=== PATIENT | female | born 1975 | race African-American/Black ===

== ENCOUNTER 2020-05-20 11:52 | Outpatient (REF) | payer OTHER, SELFPAY ==
--- NOTE | 2020-05-20 11:57 | XR_ITS ---
EXAMINATION: XR ABDOMEN KUB CLINICAL INDICATION: Constipation. COMPARISON: None TECHNIQUE: AP view of the abdomen. FINDINGS: There is moderate scattered stool seen in the colon without any significant distention. The small bowel loops are nondilated. There is no organomegaly. The gallbladder has been surgically resected. No gross bony abnormality seen. XR/XR KUB IMPRESSION: Mild constipation. No acute process seen.
[2020-05-20 13:57] LABS: MANUAL DIFF FLAG NO
[2020-05-20 14:00] LABS: Basophils Percent Auto 0.2 % (0-2); Eosinophils Percent Auto 0.9 % (0-4); Hematocrit 35.7 % (37-47); Hemoglobin 10.7 g/dl (12.0-16.0); Lymphocytes Absolute Auto 2.8 X10*3/uL (1.2-4.9); Lymphocytes Percent Auto 59.7 % (20-40); Mean Corpuscular Hemoglobin 21.8 pg (27.0-33.0); Mean Corpuscular Volume 72.7 fL (80-98); Mean Platelet Volume 11.5 fL (9.4-12.3); Monocytes Absolute Auto 0.3 X10*3/uL (0.1-1.2); Neutrophils Absolute Auto 1.5 X10*3/uL (2.0-8.3); Neutrophils Percent Auto 32.2 % (45-73); Platelet Count 196 X10*3/uL (160-400); Red Blood Count 4.91 X10*6/uL (4.20-5.50); Red Cell Distribution Width 16.1 % (11.0-16.0); White Blood Count 4.7 X10*3/uL (4.8-10.8)
[2020-05-20 14:47] LABS: Alanine Aminotransferase 18 U/L (0-31); Albumin Level 4.4 g/dL (3.5-5.0); Alkaline Phosphatase 49 U/L (39-117); Anion Gap 15 (12-20); Aspartate Amino Transferase 22 U/L (5-31); Bilirubin Direct < 0.2 mg/dL (0.0-0.5); Bilirubin Total 0.3 mg/dL (0.0-1.0); Blood Urea Nitrogen 7 mg/dL (9-16); Calcium 9.3 mg/dL (8.4-10.2); Carbon Dioxide 23 mmol/L (22-29); Chloride 105 mmol/L (96-108); Cholesterol 202 mg/dL; Estimated Glomerular Filt Rate > 60; Glucose Random 89 mg/dL (60-115); HDL Cholesterol 62 mg/dL; LDL Cholesterol Calculated 127 mg/dl; Potassium 4.3 mmol/l (3.3-5.1); Sodium 139 mmol/L (135-145); Total Protein 7.6 g/dL (6.5-8.0); Triglycerides 68 mg/dL
== END 2020-05-20 11:53 | disposition home or self-care (01) ==
LOC: HO.HMGCX 11:52
PROVIDERS: Visit Provider Nurse Practitioner Family
DX: K59.00 Constipation, unspecified (principal)
CPT/HCPCS: 36415; 74018; 80048; 80061; 80076; 85025

== ENCOUNTER 2021-03-07 09:45 | Outpatient (REF) | payer OTHER, SELFPAY ==
--- NOTE | ~2021-03-07 | CT_ITS ---
EXAMINATION: CT HEAD WITHOUT CONTRAST CLINICAL INFORMATION: Headache COMPARISON: None TECHNIQUE: Contiguous axial imaging was performed from the skull base to vertex without intravenous administration of contrast. This CT examination was performed using dose optimization techniques as appropriate, variously including the following: *Automated exposure control *Adjustment of mA and/or kV according to patient size (this includes techniques or standardized protocols for targeted exams where dose is matched to indication/reason for exam; i.e. extremities or head) *Use of iterative reconstruction technique DLP: 705 mGy-cm FINDINGS: There is no evidence of acute intracranial hemorrhage or territorial infarction. No abnormal mass effect or midline shift is seen. [place] to white matter differentiation is well preserved. No extra-axial fluid collections are identified. The ventricles are normal in size. There is no abnormal attenuation within the brain parenchyma. The osseous structures and soft tissues are normal. The mastoid air cells and visualized portions of the paranasal sinuses are well aerated. CT/CT head/brain wo con IMPRESSION: No acute intracranial process seen.
== END 2021-03-07 09:46 | disposition home or self-care (01) ==
LOC: HO.CT 09:45
PROVIDERS: PCP Internal Medicine; Visit Provider Internal Medicine
DX: R51.9 Headache, unspecified (principal)
CPT/HCPCS: 70450

== ENCOUNTER 2021-07-16 12:21 | Outpatient (REF) | payer OTHER, SELFPAY ==
[2021-07-16 12:32] LABS: MANUAL DIFF FLAG NO
[2021-07-16 13:25] LABS: Basophils Percent Auto 0.2 % (0-2); Eosinophils Percent Auto 0.5 % (0-4); Hematocrit 36.8 % (37.0-47.0); Hemoglobin 11.1 g/dl (12.0-16.0); Imm Gran Abs Auto 0.01 X10*3/uL (0.00-0.03); Imm Gran Pct Auto 0.2 % (0.0-0.4); Lymphocytes Absolute Auto 2.4 X10*3/uL (1.2-4.9); Lymphocytes Percent Auto 41.2 % (20-40); Mean Corpuscular HGB Conc 30.2 g/dl (31.0-35.0); Mean Corpuscular Hemoglobin 21.6 pg (27.0-33.0); Mean Corpuscular Volume 71.6 fL (80.0-98.0); Mean Platelet Volume 11.2 fL (9.4-12.3); Monocytes Absolute Auto 0.5 X10*3/uL (0.1-1.2); Monocytes Percent Auto 7.8 % (2-11); Neutrophils Percent Auto 50.1 % (45-73); Platelet Count 252 X10*3/uL (160-400); Red Blood Count 5.14 X10*6/uL (4.20-5.50); Red Cell Distribution Width 17.2 % (11.0-16.0); White Blood Count 5.9 X10*3/uL (4.8-10.8)
[2021-07-16 13:55] LABS: Alanine Aminotransferase 10 U/L (0-31); Albumin Level 4.5 g/dL (3.5-5.0); Alkaline Phosphatase 56 U/L (39-117); Anion Gap 10 (12-20); Aspartate Amino Transferase 14 U/L (5-31); Bilirubin Total 0.3 mg/dL (0.0-1.0); Blood Urea Nitrogen 9 mg/dL (9-16); Calcium 10.1 mg/dL (8.4-10.2); Carbon Dioxide 27 mmol/L (22-29); Chloride 106 mmol/L (96-108); Cholesterol 201 mg/dL; Estimated Glomerular Filt Rate > 60; Glucose Fasting 79 mg/dL (60-99); HDL Cholesterol 55 mg/dL; LDL Cholesterol Calculated 131 mg/dl; Potassium 4.1 mmol/L (3.3-5.1); Sodium 139 mmol/L (135-145); Total Protein 7.9 g/dL (6.5-8.0); Triglycerides 79 mg/dL
== END 2021-07-16 12:22 | disposition home or self-care (01) ==
LOC: HO.LAB 12:21
PROVIDERS: PCP Nurse Practitioner Family; Visit Provider Nurse Practitioner Family
DX: E78.00 Pure hypercholesterolemia, unspecified (principal); I10 Essential (primary) hypertension
CPT/HCPCS: 36415; 80053; 80061; 85025

== ENCOUNTER → 2021-08-27 09:53 | Outpatient (BNVA) | payer OTHER, SELFPAY | PROVIDERS: PCP Nurse Practitioner Family; Referring Provider Nurse Practitioner Family; Visit Provider Physician Assistant | DX: Z12.11 Encounter for screening for malignant neoplasm of colon (principal) | CPT/HCPCS: 99202 ==

== ENCOUNTER 2021-12-12 10:55 | Day surgery (SDC) | payer OTHER, SELFPAY ==
--- NOTE | 2021-12-11 10:06 | HO.ANESPROP2 ---
Documented by User: Kamille Gilman NP 12/11/21 10:07 HPI - Anesthesia Eval Consult details Narrative: 46yo F for Colonoscopy PMFSH Active Problems Active Problems: All Active Problems (Updated 12/08/21 @ 10:17 by Praveena Pepe RN) Constipation (Acute) Abdominal pain (Acute) Nausea (Acute) Bilateral occipital neuralgia (Acute) Bilateral headaches (Acute) Encounter to establish care (Acute) Chronic headache (Acute) Uterine fibroid (Acute) Encounter for screening colonoscopy (Acute) Cramps of right lower extremity (Acute) Vitamin D deficiency (Acute) Past Medical History Medical History Gestational diabetes ARCHIBALD (headache) History of palpitations Occipital neuralgia Surgical History Surgical History History of delivery History of cholecystectomy Social History Social History Housing: House Alcohol intake: never Patient Tobacco Use Status: Never used Tobacco e-Cigarette/Vaping Use: Never Used Second Hand Smoke Exposure: No Use of substances other than those prescribed or required for medical reasons: No Are you DNR?: No Advance Directives: No Advance Directives Information Provided: Yes Recently lost weight without trying: No Nutrition Risks: No Nutritional Risk Patient : No FDLMP: 12/07/21 service: No Current occupational status: employed 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 Cognitive needs: No Hearing needs: No Vision needs: Yes (glasses) Meds Allergies Allergy/AdvReac Type Severity Reaction Status Date / Time Quinidine-Quinine Analogues Allergy itch Verified 09/11/21 10:09 ([facility] Influenza vaccine AdvReac Severe sever flu Uncoded 12/12/21 11:54 like symptoms Home Medications Medication Instructions Recorded Confirmed Last Taken Type No Known Home Meds 12/08/21 12/08/21 Unknown History Exam Exam Date and Time: December 11, 2021 1006 Pertinent Lab Results Pertinent Lab Results: Laboratory Tests 07/16/21 07/16/21 12:31 12:31 WBC 5.9 Hgb 11.1 L Hct 36.8 L Plt Count 252 Sodium 139 Potassium 4.1 Chloride 106 Carbon Dioxide 27 BUN 9 Creatinine 0.73 Assessment and Plan Assessment Anesthesia Assessment: Chart Reviewed Documented by User: lEi Bearden MD 12/12/21 12:11 PMFSH Past Medical History Medical History Gestational diabetes ARCHIBALD (headache) History of palpitations Occipital neuralgia Surgical History Surgical History History of delivery History of cholecystectomy History of Problems with Anesthesia: No Social History Social History Housing: House Alcohol intake: never Patient Tobacco Use Status: Never used Tobacco e-Cigarette/Vaping Use: Never Used Second Hand Smoke Exposure: No Use of substances other than those prescribed or required for medical reasons: No Are you DNR?: No Advance Directives: No Advance Directives Information Provided: Yes Recently lost weight without trying: No Nutrition Risks: No Nutritional Risk Patient : No FDLMP: 12/07/21 service: No Current occupational status: employed 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 Cognitive needs: No Hearing needs: No Vision needs: Yes (glasses) Meds Allergies Allergy/AdvReac Type Severity Reaction Status Date / Time Quinidine-Quinine Analogues Allergy itch Verified 09/11/21 10:09 ([facility] Influenza vaccine AdvReac Severe sever flu Uncoded 12/12/21 11:54 like symptoms Home Medications Medication Instructions Recorded Confirmed Last Taken Type No Known Home Meds 12/08/21 12/08/21 Unknown History Exam Airway Mallampati Class: I TM Dist: >3cm Neck ROM: Full Loose/Missing/Broken Teeth: No Heart: RRR Lungs: CTA Assessment and Plan Assessment Anesthesia Assessment: Anesthesia Plan Discussed Final Anesthetic Review History of Problems with Anesthesia: No NPO: Yes ASA Class: II Final Preanesthetic Review: Meds/Allgs Chart Reviewed, Consent Obtained/Reviewed and Anes Risks/Benef Reviewed Patient Risk: Low Procedure Risk: Low Anesthetic Plan Anesthetic Plan: MAC: Disposition: Standard PACU
[2021-12-12 11:38] VITALS: BMI 24.3
[2021-12-12 11:44] VITALS: BP 129/66; PULSE 76; RESP 18; TEMP 37.1; O2SAT 100
[2021-12-12 11:46] LABS: UPreg QC Valid YES; Urine Pregnancy NEGATIVE (NEGATIVE)
--- NOTE | 2021-12-12 11:51 | MHC.SHP ---
Pre-Procedural Eval Section A Date of Service: 12/12/21 The patient is an INPATIENT: No The History & Physical has been completed within 30 days and I have reviewed it.: No Section B Chief Complaint: screening Relevant Family History (Specify if Yes): No Relevant Social History: None Present Medications: see Short Stay Collaborative assessment Medical History: Significant History (Chronic headaches, ) History of Previous Operations: Relevant previous surgery/procedure and date(s) (History of delivery History of cholecystectomy) Allergies: Allergies Allergy/AdvReac Type Severity Reaction Status Date / Time Quinidine-Quinine Analogues Allergy itch Verified 09/11/21 10:09 ([facility] Review of Systems Sugical H&P ROS: Negative: Constitution, Cardiovascular, Respiratory and Gastrointestinal Exam Surgical H&P Exam: Normal: Heart, Normal: Lungs, Normal: Extremities and Normal: Abdomen Plan Diagnosis/Plan: Unchanged I have reviewed the history and physical and performed a pertinent physical examination on my patient. No changes have occurred unless specified.
[2021-12-12] MEDS: Lactated Ringers 1,000 ML 100 ML IVCONT (12:10)
--- NOTE | 2021-12-12 13:04 | P.OP_ITS ---
Operative Note Operative Note Date of Service: 12/12/21 Narrative: Pre-op diagnosis: Colon cancer screening Post-op diagnosis:?other (Diverticulosis, hemorrhoids) Procedure: COLONOSCOPY TILL CECUM Consent: Indications for the procedure and potential complications of bleeding, perforation, reaction to medications and missed diagnosis were discussed with the patient and informed consent was obtained. Instrument: Olympus PCF H 190 L variable stiffness pediatric colonoscope Monitoring: Vital signs and clinical assessment, intermittent blood pressure monitoring, continuous EKG monitoring, Pulse oximetry and Carbon Dioxide monitoring were done throughout the procedure. Colon withdrawl time was 15 minutes. Procedure: The patient was placed in the left lateral decubitis position and pre-procedure medications were administered. After a digital rectal examination of the ano-rectum, the video colonoscope was inserted into the rectum and advanced through the colon to the cecum. The colonoscope was slowly withdrawn in a retrograde panoramic fashion and the colon mucosa was carefully examined including a retroflexed view of the rectum. Findings and interventions are described below. Procedure Difficulty: Without difficulty Findings: Terminal Ileum: Not evaluated Cecum:? Normal Ascending Colon:? Normal Transverse Colon:? Normal Descending Colon:? Normal Sigmoid Colon:? Moderate diverticulosis Rectum:? Normal Ano-rectum:? Small internal hemorrhoids Colon preparation: Excellent ? Impression and Post Procedure Diagnosis: Colonoscopy Findings: No polyps were detected. Moderate diverticulosis seen in the sigmoid colon Small hemorrhoids on retroflexed exam. Plan: Patient has an appointment on 12/24/21 in the [facility] with ISABEL Bush. Repeat Colonoscopy 9-10 years (earlier if pt develops any new symptoms or has a change in her family hx). Diverticulosis handouts were given in the discharge area Surgeon: Mika Desai MD Anesthesia:?MAC Was an Sandwich And Drink Cart Operator used for this Procedure?:?Yes Sandwich And Drink Cart Operator:?Rina Colon Estimated blood loss (mL):?0 Pathology:?none sent Condition:?stable Disposition:?PACU
[2021-12-12 13:48] VITALS: BP 90/46; PULSE 69; RESP 16; TEMP 36.1; O2SAT 100
[2021-12-12 14:03] VITALS: BP 110/68; PULSE 56; RESP 16; TEMP 36.1; O2SAT 100
[2021-12-12 14:18] VITALS: BP 117/65; PULSE 56; RESP 16; TEMP 36.2; O2SAT 100
== END 2021-12-12 14:50 | disposition home or self-care (01) ==
PROVIDERS: Nurse Practitioner; PCP Nurse Practitioner Family; Visit Provider Internal Medicine Gastroenterology
PROC: 0DJD8ZZ Inspection of Lower Intestinal Tract, Via Natural or Artificial Opening Endoscopic (ICD-10-PCS; CPT 45378; principal; 2021-12-12 12:40)
DX: Z12.11 Encounter for screening for malignant neoplasm of colon (principal); K57.30 Diverticulosis of large intestine without perforation or abscess without bleeding; K64.8 Other hemorrhoids; K21.9 Gastro-esophageal reflux disease without esophagitis; Z88.8 Allergy status to other drugs, medicaments and biological substances; Z90.49 Acquired absence of other specified parts of digestive tract
CPT/HCPCS: 45378; 81025

== ENCOUNTER 2021-12-19 10:00 | Outpatient (REF) | payer OTHER, SELFPAY | END 2021-12-19 10:01 | disposition home or self-care (01) | LOC: HO.MAMMO 10:00 | PROVIDERS: PCP Internal Medicine; Visit Provider Internal Medicine | DX: Z13.89 Encounter for screening for other disorder (principal) ==

== ENCOUNTER 2022-02-13 10:47 | Outpatient (REF) | payer OTHER, SELFPAY ==
--- NOTE | ~2022-02-13 | MM_ITS ---
EXAMINATION: MM DIAGNOSTIC DIGITAL BREAST TOMOSYNTHESIS, RIGHT US DIAGNOSTIC ULTRASOUND BREAST, RIGHT CLINICAL INFORMATION: 46-year-old for six-month follow-up outside diagnostic baseline mammography for parenchymal asymmetry mid outer right breast. TC score 8%. COMPARISON: Outside breast imaging [facility]: Mammography 07/23/2021, bilateral breast ultrasound 07/23/2021. TECHNIQUE: Digital breast tomosynthesis is performed in both the craniocaudal and mediolateral oblique views along with computer-aided detection (CAD). Synthesized 2D images are generated from the tomosynthesis. Additional spot right CC and spot right MLO views are provided. Ultrasound right breast is targeted to the lower and outer quadrants. Grayscale imaging and color Doppler are performed without and with harmonics. FINDINGS: There are scattered areas of fibroglandular density (ACR BI-RADS breast composition Category b). There is normal appearing distribution fibroglandular tissue without mass, architectural abnormality, or focal asymmetric density. No developing density or abnormal calcifications. The right axilla and skin contours are unremarkable. Ultrasound demonstrates no cystic or solid mass, architectural abnormality, or focal duct ectasia. No skin thickening or edema tracking in soft tissue planes. Results are discussed with the patient at time of visit. MM/MM tomosynthesis diagnostic RT IMPRESSION: -No mammographic evidence of malignancy. -Unremarkable targeted right breast ultrasound. ASSESSMENT: BI-RADS 1: Negative RECOMMENDATION: Routine annual mammography screening. This patient's information was entered into a reminder system with a target due date for their next mammogram.
== END 2022-02-13 10:48 | disposition home or self-care (01) ==
LOC: HO.MAMMO 10:47
PROVIDERS: PCP Internal Medicine; Visit Provider Obstetrics & Gynecology
DX: N64.89 Other specified disorders of breast (principal)
CPT/HCPCS: 76642; 77061; 77065

== ENCOUNTER 2022-08-16 17:00 | Emergency (ER) | payer OTHER, SELFPAY ==
--- NOTE | ~2022-08-16 | US_ITS ---
EXAMINATION: US PELVIS COMPLETE CLINICAL INFORMATION: Left pelvic pain, heavy bleeding with clots COMPARISON: None TECHNIQUE: Transabdominal and transvaginal imaging was performed. FINDINGS: The uterus is of normal size and echogenicity measuring 12.5 x 5.7 x 6.3 cm. Uterus is retroverted in position. A regular homogeneous endometrium is identified measuring 0.2 cm. The endocervical canal is distended with soft tissue which demonstrates internal vascularity and a feeding vessel measuring approximately 2.5 x 2.6 x 1.8 cm which may reflect an endocervical polyp or endocervical mass, recommend correlation with direct inspection. Both ovaries are of normal size and echogenicity. The right measures 2.7 x 1.8 x 1.8 cm for a volume of 4.6 mL. The left measures 2.8 x 2.4 x 2.0 cm for a volume of 7.0 mL. Normal vascular flow is present within the ovaries. There is a 3.5 cm unilocular simple left ovarian cyst, certainly benign, no follow-up imaging recommended. There is no pelvic free fluid. US/US pelvic ovarian doppler IMPRESSION: The endocervical canal is distended with soft tissue which demonstrates internal vascularity and a feeding vessel measuring approximately 2.5 cm which may reflect an endocervical polyp or endocervical mass, recommend correlation with direct inspection.
--- NOTE | ~2022-08-16 | US_ITS ---
EXAMINATION: US PELVIS COMPLETE CLINICAL INFORMATION: Left pelvic pain, heavy bleeding with clots COMPARISON: None TECHNIQUE: Transabdominal and transvaginal imaging was performed. FINDINGS: The uterus is of normal size and echogenicity measuring 12.5 x 5.7 x 6.3 cm. Uterus is retroverted in position. A regular homogeneous endometrium is identified measuring 0.2 cm. The endocervical canal is distended with soft tissue which demonstrates internal vascularity and a feeding vessel measuring approximately 2.5 x 2.6 x 1.8 cm which may reflect an endocervical polyp or endocervical mass, recommend correlation with direct inspection. Both ovaries are of normal size and echogenicity. The right measures 2.7 x 1.8 x 1.8 cm for a volume of 4.6 mL. The left measures 2.8 x 2.4 x 2.0 cm for a volume of 7.0 mL. Normal vascular flow is present within the ovaries. There is a 3.5 cm unilocular simple left ovarian cyst, certainly benign, no follow-up imaging recommended. There is no pelvic free fluid. US/US pelvic and transvaginal IMPRESSION: The endocervical canal is distended with soft tissue which demonstrates internal vascularity and a feeding vessel measuring approximately 2.5 cm which may reflect an endocervical polyp or endocervical mass, recommend correlation with direct inspection.
[2022-08-16 17:02] VITALS: BP 137/65; PULSE 74; RESP 18; TEMP 36.8; O2SAT 98; BMI 24.2
--- NOTE | 2022-08-16 17:21 | ED.FEMALEGU ---
HPI - Female Genitourinary General Chief complaint: Vaginal Bleeding <ISABEL Rivers - Last Filed: 08/16/22 17:22> Stated complaint: dizzy, headache <ISABEL Rivers - Last Filed: 08/16/22 17:22> Time Seen by Provider: 08/16/22 18:42 <ISABEL Rivers - Last Filed: 08/16/22 17:22> Source: patient <Julisa Ribera NP - Last Filed: 08/17/22 01:11> Mode of arrival: ambulatory <Julisa Ribera NP - Last Filed: 08/17/22 01:11> Limitations: no limitations <Julisa Ribera NP - Last Filed: 08/17/22 01:11> History of Present Illness HPI Narrative: 47-year-old female presents with 2 days of heavy vaginal bleeding with clots. Heavy bleeding is also associated with fatigue, dizziness, and intermittent palpitations. Also reports headache, her is influenza positive. She also has urinary urgency and hesitancy. <Julisa Ribera NP - Last Filed: 08/17/22 01:11> MD elicited complaint: dysuria, vaginal bleeding and pelvic pain <Julisa Ribera NP - Last Filed: 08/17/22 01:11> Pertinent past history: other (Fibroids, polypectomy uterine) <Julisa Ribera NP - Last Filed: 08/17/22 01:11> Onset (ago): day(s) <Julisa Ribera NP - Last Filed: 08/17/22 01:11> Location of symptoms: vaginal <Julisa Ribera NP - Last Filed: 08/17/22 01:11> Severity: moderate <Julisa Ribera NP - Last Filed: 08/17/22 01:11> Severity scale (1-10): 6 <Julisa Ribera NP - Last Filed: 08/17/22 01:11> Quality of pain: aching <Julisa Ribera NP - Last Filed: 08/17/22 01:11> Consistency: constant <Julisa Ribera NP - Last Filed: 08/17/22 01:11> Vaginal discharge: none <Julisa Ribera NP - Last Filed: 08/17/22 01:11> Vaginal bleeding: heavy, dark red and clots <Julisa Ribera NP - Last Filed: 08/17/22 01:11> Urinary symptoms: Dysuria and Urgency <Julisa Ribera NP - Last Filed: 08/17/22 01:11> Exacerbating factors: urination, intercourse, movement and palpation <Julisa Ribera NP - Last Filed: 08/17/22 01:11> Relieving factors: none <Julisa Ribera NP - Last Filed: 08/17/22 01:11> Associated symptoms: abdominal pain, headaches and weakness <Julisa Ribera NP - Last Filed: 08/17/22 01:11> Treatment prior to arrival: none <Julisa Ribera NP - Last Filed: 08/17/22 01:11> Sexual activity: Yes <Julisa Ribera NP - Last Filed: 08/17/22 01:11> Patient : No <Julisa Ribera NP - Last Filed: 08/17/22 01:11> Related Data Home medications: Home Medications Medication Instructions Recorded Confirmed multivitamin 1 tab PO DAILY 02/16/22 ferrous sulfate 325 mg (65 mg 325 mg PO DAILY 05/12/22 iron) tablet (Feosol) Previous Rx's Medication Instructions Recorded cyclobenzaprine 10 mg tablet 10 mg PO BEDTIME #14 tabs 02/16/22 meloxicam 15 mg tablet 15 mg PO DAILY #14 tabs 02/16/22 meclizine 12.5 mg tablet 12.5 mg PO DAILY dizziness #10 tabs 05/12/22 cefuroxime axetil 500 mg tablet 500 mg PO Q12H 7 days #14 tabs 08/17/22 ferrous sulfate 325 mg (65 mg 325 mg PO BID 30 days #60 tabs 08/17/22 iron) tablet,delayed release medroxyprogesterone 10 mg tablet 10 mg PO DAILY 30 days #30 tabs 08/17/22 (Provera) <ISABEL Rivers - Last Filed: 08/16/22 17:22> Allergies/Adverse reactions: Allergies Allergy/AdvReac Type Severity Reaction Status Date / Time Quinidine-Quinine Analogues Allergy itch Verified 05/12/22 11:08 (Cincho Influenza vaccine AdvReac Severe sever flu Uncoded 05/12/22 11:08 like symptoms <ISABEL Rivers - Last Filed: 08/16/22 17:22> Review of Systems Review of Systems: Constitutional: No Fever, No Chills Cardiovascular: No Chest Pain, No SOB Respiratory: No Cough, No Dyspnea Gastrointestinal: Pulse Nausea, No Vomiting, No Diarrhea, No abdominal Pain Genitourinary: Positive Dysuria, No Hematuria , positive vaginal bleeding with clots Musculoskeletal: positive joint pain, No Myalgias, No Joint Swelling Skin: No Skin lacerations, No rash Neuro: No Weakness, No Numbness, No Paresthesias, positive Dizziness, positive Headache <Julisa Ribera NP - Last Filed: 08/17/22 01:11> Yes all other systems are reviewed and are negative <Julisa Ribera NP - Last Filed: 08/17/22 01:11> PMFSH Past Medical History Attestation statement: The following information was validated with the patient. <Julisa Ribera NP - Last Filed: 08/17/22 01:11> Source: old records reviewed <Julisa Ribera NP - Last Filed: 08/17/22 01:11> Medical History: Medical History Gestational diabetes ARCHIBALD (headache) History of palpitations Occipital neuralgia <ISABEL Rivers - Last Filed: 08/16/22 17:22> Surgical History: Surgical History History of delivery History of cholecystectomy <ISABEL Rivers - Last Filed: 08/16/22 17:22> Social History Social History: Social History Housing: House Alcohol intake: never Patient Tobacco Use Status: Never used Tobacco e-Cigarette/Vaping Use: Never Used Second Hand Smoke Exposure: No service: No Current occupational status: employed 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 Cognitive needs: No Hearing needs: No Vision needs: Yes (glasses) <ISABEL Rivers Last Filed: 08/16/22 17:22> Physical Exam Vital Signs: Vital Signs: Last Vital Signs Temp 98.9 F 08/17/22 00:09 Pulse 58 08/17/22 00:09 Resp 16 08/17/22 00:09 BP 108/58 L 08/17/22 00:09 Pulse Ox 97 08/17/22 00:09 O2 Del Method Room Air 08/17/22 00:09 BMI result Body Mass Index 24.2 <ISABEL Rivers - Last Filed: 08/16/22 17:22> Vital Signs: Last Vital Signs Temp 98.9 F 08/17/22 00:09 Pulse 58 08/17/22 00:09 Resp 16 08/17/22 00:09 BP 108/58 L 08/17/22 00:09 Pulse Ox 97 08/17/22 00:09 O2 Del Method Room Air 08/17/22 00:09 BMI result Body Mass Index 24.2 <Julisa Ribera NP - Last Filed: 08/17/22 01:11> Appearance: Alert. Oriented X3. No acute distress. Eyes: Pupils equal, round and reactive to light. Neck: Normal inspection. Neck supple. CVS: Normal heart rate and rhythm. Pulses normal. Respiratory: No respiratory distress. Breath sounds normal. Abdomen: Soft and suprapubic tenderness noted. Skin: Skin warm and dry. Normal skin color. Normal skin turgor. Extremities: No lower extremity edema. Gait well balanced well coordinated. Neuro: No motor deficit. No sensory deficit. Cranial nerves 2-12 intact. <Julisa Ribera NP - Last Filed: 08/17/22 01:11> : External Female Exam: normal external appearance <Julisa Ribera NP - Last Filed: 08/17/22 01:11> Speculum Exam - Vagina: normal appearance of the vagina <Julisa Ribera NP - Last Filed: 08/17/22 01:11> Speculum Exam - Cervix: Cervical mass present tender, soft and erythematous <Julisa Ribera NP - Last Filed: 08/17/22 01:11> Bimanual Exam- Adnexa, other: normal adnexae <Julisa Ribera NP - Last Filed: 08/17/22 01:11> Course Course Course Narrative: This is an RME: Additional HPI, ROS, PE not included below will be deferred to primary provider. 47-year-old female presents with abnormal vaginal bleeding, patient tells me she is not on her period yesterday after having intercourse she started having heavy bleeding, reports she is passing dark red clots, she tells me that she went through 1 pad last night however unable to tell me how many pads she went through yesterday she said a lot. She reports she went to work today had no bleeding but when she got home she started bleeding again. Also reporting left-sided pelvic pain. This is never happened to her before. Denies nausea, vomiting , abdominal pain, headache, fevers, chills. Physical exam benign unable to do a pelvic exam from triage. Plan at this time labs, urine, hCG, ultrasound pelvic and transvaginal <ISABEL Rivers - Last Filed: 08/16/22 17:22> This is an RME: Additional HPI, ROS, PE not included below will be deferred to primary provider. 47-year-old female presents with abnormal vaginal bleeding, patient tells me she is not on her period yesterday after having intercourse she started having heavy bleeding, reports she is passing dark red clots, she tells me that she went through 1 pad last night however unable to tell me how many pads she went through yesterday she said a lot. She reports she went to work today had no bleeding but when she got home she started bleeding again. Also reporting left-sided pelvic pain. This is never happened to her before. Denies nausea, vomiting , abdominal pain, headache, fevers, chills. Physical exam benign unable to do a pelvic exam from triage. Plan at this time labs, urine, hCG, ultrasound pelvic and transvaginal 47-year-old female presents for heavy vaginal bleeding over the past 2 days with large blood clots accompanied with dizziness headache and weakness. She also is experiencing dysuria and hesitancy. patient describes complex history of abnormal uterine bleeding, has had polypectomies verses fibroidectomy in the past. After each of her procedures, she did report that her heavy vaginal bleeding had decreased but returned 2-3 months after procedure was completed. She states that bleeding is heavier on exertion, with strenuous exercise, and intercourse. She bleeds 2-3 weeks out of each month and feels that things have worsened. 22:[address] Andrade regarding pelvic ultrasound and duplex. Physical examination indicates a normal vaginal introitus, normal labia, an abnormal cervix with a mass like lesion protruding from the cervix. 23:36 Dr. Andrade at bedside. Plan of care is to follow-up with OBGYN of her choosing. To control vaginal bleeding Provera 10 mg daily for 30 days. For blood loss anemia iron sulfate twice a day, for UTI cefuroxime 500 mg twice a day for 7. Patient does verbalize understanding of and agrees to plan of care discharge home. Verbalize understanding of signs and symptoms indicating need for emergent intervention. Also understand the importance of following up with OBGYN of her choosing as well as all discharge instructions including pelvic rest. <Julisa Ribera NP - Last Filed: 08/17/22 01:11> Consultations Consultation #1: Lupe <Julisa Ribera NP - Last Filed: 08/17/22 01:11> Medications Administered Discontinued Medications Generic Name Dose Route Start Last Admin Trade Name Freq PRN Reason Stop Dose Admin Cefuroxime Axetil 500 mg 08/16/22 20:19 08/16/22 21:57 Cefuroxime Axetil 500 Mg Tablet PO 08/16/22 20:20 500 mg ONCE ONE Administration <ISABEL Rivers - Last Filed: 08/16/22 17:22> Medications Administered Discontinued Medications Generic Name Dose Route Start Last Admin Trade Name Freq PRN Reason Stop Dose Admin Cefuroxime Axetil 500 mg 08/16/22 20:19 08/16/22 21:57 Cefuroxime Axetil 500 Mg Tablet PO 08/16/22 20:20 500 mg ONCE ONE Administration <Julisa Ribera NP - Last Filed: 08/17/22 01:11> Medical Decision Making Differential Diagnosis Differential Diagnoses: The differential diagnosis associated with the presentation includes <Julisa Ribera NP - Last Filed: 08/17/22 01:11> Mass, polyp, adenomyosis, fibroids, UTI, malignancy <Julisa Ribera NP - Last Filed: 08/17/22 01:11> Admission/Observation Consideration of admission/observation: Escalation of care including admission/observation considered <Julisa Ribera NP - Last Filed: 08/17/22 01:11> If patient's H&H drops, plan of care is for admission <Julisa Ribera NP - Last Filed: 08/17/22 01:11> Consult Healthcare Provider Management of the patient was discussed with: Director Operations Broadcast <Julisa Ribera NP - Last Filed: 08/17/22 01:11> Zerbe <Julisa Ribera NP - Last Filed: 08/17/22 01:11> Lab Data MDM Lab Attestation statement: I reviewed the patient's lab results. <Julisa Ribera NP - Last Filed: 08/17/22 01:11> Result Diagrams: 08/16/22 17:43 08/16/22 17:43 <ISABEL Rivers - Last Filed: 08/16/22 17:22> Labs: Lab Results 08/16/22 08/16/22 08/16/22 Range/Units 17:43 17:43 17:43 WBC 6.1 (4.8-10.8) X10*3/uL RBC 4.16 L (4.20-5.50) X10*6/uL Hgb 9.2 L (12.0-16.0) g/dl Hct 29.6 L (37.0-47.0) % MCV 71.2 L (80.0-98.0) fL MCH 22.1 L (27.0-33.0) pg MCHC 31.1 (31.0-35.0) g/dl RDW 16.1 H (11.0-16.0) % Plt Count 212 (160-400) X10*3/uL MPV 10.0 (9.4-12.3) fL Immature Gran % (Auto) 0.2 (0.0-0.4) % Neut % (Auto) 50.3 (45-73) % Lymph % (Auto) 39.9 (20-40) % Imperial % (Auto) 8.6 (2-11) % Eos % (Auto) 0.7 (0-4) % Baso % (Auto) 0.3 (0-2) % Lymph # (Auto) 2.4 (1.2-4.9) X10*3/uL Imperial # (Auto) 0.5 (0.1-1.2) X10*3/uL Eos # (Auto) 0.0 (0.0-0.4) X10*3/uL Baso # (Auto) 0.0 (0.0-0.2) X10*3/uL Abs Immat Gran (auto) 0.01 (0.00-0.03) X10*3/uL Absolute Neuts (auto) 3.1 (2.0-8.3) x10*3/uL Absolute Nucleated RBC 0.000 (0.0-0.012) X10*3/uL Nucleated RBC % (auto) 0.0 (0.0-0.2) /100WBC Sodium 139 (135-145) mmol/L Potassium 4.1 (3.3-5.1) mmol/L Chloride 107 (96-108) mmol/L Carbon Dioxide 22 (22-29) mmol/L Anion Gap 14 (12-20) BUN 19 H (9-16) mg/dL Creatinine 0.83 (0.5-1.4) mg/dL Estim Creat Clear Calc 78.4 Estimated GFR > 60 Random Glucose 95 (60-115) mg/dL Calcium 9.2 D (8.4-10.2) mg/dL Magnesium 2.0 (1.6-2.6) mg/dL Total Bilirubin 0.2 (0.0-1.0) mg/dL AST 24 (5-31) U/L ALT 28 (0-31) U/L Alkaline Phosphatase 52 (39-117) U/L Total Protein 6.7 (6.5-8.0) g/dL Albumin 4.0 (3.5-5.0) g/dL Beta HCG, Quant < 2 mIU/mL Urine Color Urine Appearance Urine pH (5.0-9.0) Ur Specific [place] (1.005-1.025) Urine Protein (Neg-Trace) mg/dL Urine Glucose (UA) (Negative) mg/dL Urine Ketones (Negative) mg/dL Urine Blood (Negative) Urine Nitrite (Negative) Ur Leukocyte Esterase (Negative) Urine RBC (0-2) /HPF Urine WBC (0-5) /HPF Ur Squamous Epith Cells (0-2) /HPF Urine Bacteria (None Seen) Hyaline Casts (0-2) /LPF COVID-19 (KAROLYN) Negative (Negative) COVID-19 Clin Com See Note Blood Type Antibody Screen 08/16/22 08/16/22 08/17/22 Range/Units 19:34 19:35 00:08 WBC 5.8 (4.8-10.8) X10*3/uL RBC 4.14 L (4.20-5.50) X10*6/uL Hgb 9.2 L (12.0-16.0) g/dl Hct 29.4 L (37.0-47.0) % MCV 71.0 L (80.0-98.0) fL MCH 22.2 L (27.0-33.0) pg MCHC 31.3 (31.0-35.0) g/dl RDW 15.9 (11.0-16.0) % Plt Count 214 (160-400) X10*3/uL MPV 10.5 (9.4-12.3) fL Immature Gran % (Auto) 0.2 (0.0-0.4) % Neut % (Auto) 40.6 L (45-73) % Lymph % (Auto) 50.7 H (20-40) % Imperial % (Auto) 7.4 (2-11) % Eos % (Auto) 0.9 (0-4) % Baso % (Auto) 0.2 (0-2) % Lymph # (Auto) 2.9 (1.2-4.9) X10*3/uL Imperial # (Auto) 0.4 (0.1-1.2) X10*3/uL Eos # (Auto) 0.1 (0.0-0.4) X10*3/uL Baso # (Auto) 0.0 (0.0-0.2) X10*3/uL Abs Immat Gran (auto) 0.01 (0.00-0.03) X10*3/uL Absolute Neuts (auto) 2.4 (2.0-8.3) x10*3/uL Absolute Nucleated RBC 0.000 (0.0-0.012) X10*3/uL Nucleated RBC % (auto) 0.0 (0.0-0.2) /100WBC Sodium (135-145) mmol/L Potassium (3.3-5.1) mmol/L Chloride (96-108) mmol/L Carbon Dioxide (22-29) mmol/L Anion Gap (12-20) BUN (9-16) mg/dL Creatinine (0.5-1.4) mg/dL Estim Creat Clear Calc Estimated GFR Random Glucose (60-115) mg/dL Calcium (8.4-10.2) mg/dL Magnesium (1.6-2.6) mg/dL Total Bilirubin (0.0-1.0) mg/dL AST (5-31) U/L ALT (0-31) U/L Alkaline Phosphatase (39-117) U/L Total Protein (6.5-8.0) g/dL Albumin (3.5-5.0) g/dL Beta HCG, Quant mIU/mL Urine Color Yellow Urine Appearance Clear Urine pH 6.0 (5.0-9.0) Ur Specific [place] 1.010 (1.005-1.025) Urine Protein Negative (Neg-Trace) mg/dL Urine Glucose (UA) Negative (Negative) mg/dL Urine Ketones Negative (Negative) mg/dL Urine Blood Large (3+) H (Negative) Urine Nitrite Negative (Negative) Ur Leukocyte Esterase Moderate (2+) H (Negative) Urine RBC >20 H (0-2) /HPF Urine WBC 11-20 H (0-5) /HPF Ur Squamous Epith Cells 0-2 (0-2) /HPF Urine Bacteria None Seen (None Seen) Hyaline Casts 0-2 (0-2) /LPF COVID-19 (KAROLYN) (Negative) COVID-19 Clin Com Blood Type O Positive Antibody Screen NEGATIVE <ISABEL Rivers - Last Filed: 08/16/22 17:22> Lab Results 08/16/22 08/16/22 08/16/22 Range/Units 17:43 17:43 17:43 WBC 6.1 (4.8-10.8) X10*3/uL RBC 4.16 L (4.20-5.50) X10*6/uL Hgb 9.2 L (12.0-16.0) g/dl Hct 29.6 L (37.0-47.0) % MCV 71.2 L (80.0-98.0) fL MCH 22.1 L (27.0-33.0) pg MCHC 31.1 (31.0-35.0) g/dl RDW 16.1 H (11.0-16.0) % Plt Count 212 (160-400) X10*3/uL MPV 10.0 (9.4-12.3) fL Immature Gran % (Auto) 0.2 (0.0-0.4) % Neut % (Auto) 50.3 (45-73) % Lymph % (Auto) 39.9 (20-40) % Imperial % (Auto) 8.6 (2-11) % Eos % (Auto) 0.7 (0-4) % Baso % (Auto) 0.3 (0-2) % Lymph # (Auto) 2.4 (1.2-4.9) X10*3/uL [place] # (Auto) 0.5 (0.1-1.2) X10*3/uL Eos # (Auto) 0.0 (0.0-0.4) X10*3/uL Baso # (Auto) 0.0 (0.0-0.2) X10*3/uL Abs Immat Gran (auto) 0.01 (0.00-0.03) X10*3/uL Absolute Neuts (auto) 3.1 (2.0-8.3) x10*3/uL Absolute Nucleated RBC 0.000 (0.0-0.012) X10*3/uL Nucleated RBC % (auto) 0.0 (0.0-0.2) /100WBC Sodium 139 (135-145) mmol/L Potassium 4.1 (3.3-5.1) mmol/L Chloride 107 (96-108) mmol/L Carbon Dioxide 22 (22-29) mmol/L Anion Gap 14 (12-20) BUN 19 H (9-16) mg/dL Creatinine 0.83 (0.5-1.4) mg/dL Estim Creat Clear Calc 78.4 Estimated GFR > 60 Random Glucose 95 (60-115) mg/dL Calcium 9.2 D (8.4-10.2) mg/dL Magnesium 2.0 (1.6-2.6) mg/dL Total Bilirubin 0.2 (0.0-1.0) mg/dL AST 24 (5-31) U/L ALT 28 (0-31) U/L Alkaline Phosphatase 52 (39-117) U/L Total Protein 6.7 (6.5-8.0) g/dL Albumin 4.0 (3.5-5.0) g/dL Beta HCG, Quant < 2 mIU/mL Urine Color Urine Appearance Urine pH (5.0-9.0) Ur Specific [place] (1.005-1.025) Urine Protein (Neg-Trace) mg/dL Urine Glucose (UA) (Negative) mg/dL Urine Ketones (Negative) mg/dL Urine Blood (Negative) Urine Nitrite (Negative) Ur Leukocyte Esterase (Negative) Urine RBC (0-2) /HPF Urine WBC (0-5) /HPF Ur Squamous Epith Cells (0-2) /HPF Urine Bacteria (None Seen) Hyaline Casts (0-2) /LPF COVID-19 (KAROLYN) Negative (Negative) COVID-19 Clin Com See Note Blood Type Antibody Screen 08/16/22 08/16/22 08/17/22 Range/Units 19:34 19:35 00:08 WBC 5.8 (4.8-10.8) X10*3/uL RBC 4.14 L (4.20-5.50) X10*6/uL Hgb 9.2 L (12.0-16.0) g/dl Hct 29.4 L (37.0-47.0) % MCV 71.0 L (80.0-98.0) fL MCH 22.2 L (27.0-33.0) pg MCHC 31.3 (31.0-35.0) g/dl RDW 15.9 (11.0-16.0) % Plt Count 214 (160-400) X10*3/uL MPV 10.5 (9.4-12.3) fL Immature Gran % (Auto) 0.2 (0.0-0.4) % Neut % (Auto) 40.6 L (45-73) % Lymph % (Auto) 50.7 H (20-40) % Imperial % (Auto) 7.4 (2-11) % Eos % (Auto) 0.9 (0-4) % Baso % (Auto) 0.2 (0-2) % Lymph # (Auto) 2.9 (1.2-4.9) X10*3/uL [place] # (Auto) 0.4 (0.1-1.2) X10*3/uL Eos # (Auto) 0.1 (0.0-0.4) X10*3/uL Baso # (Auto) 0.0 (0.0-0.2) X10*3/uL Abs Immat Gran (auto) 0.01 (0.00-0.03) X10*3/uL Absolute Neuts (auto) 2.4 (2.0-8.3) x10*3/uL Absolute Nucleated RBC 0.000 (0.0-0.012) X10*3/uL Nucleated RBC % (auto) 0.0 (0.0-0.2) /100WBC Sodium (135-145) mmol/L Potassium (3.3-5.1) mmol/L Chloride (96-108) mmol/L Carbon Dioxide (22-29) mmol/L Anion Gap (12-20) BUN (9-16) mg/dL Creatinine (0.5-1.4) mg/dL Estim Creat Clear Calc Estimated GFR Random Glucose (60-115) mg/dL Calcium (8.4-10.2) mg/dL Magnesium (1.6-2.6) mg/dL Total Bilirubin (0.0-1.0) mg/dL AST (5-31) U/L ALT (0-31) U/L Alkaline Phosphatase (39-117) U/L Total Protein (6.5-8.0) g/dL Albumin (3.5-5.0) g/dL Beta HCG, Quant mIU/mL Urine Color Yellow Urine Appearance Clear Urine pH 6.0 (5.0-9.0) Ur Specific [place] 1.010 (1.005-1.025) Urine Protein Negative (Neg-Trace) mg/dL Urine Glucose (UA) Negative (Negative) mg/dL Urine Ketones Negative (Negative) mg/dL Urine Blood Large (3+) H (Negative) Urine Nitrite Negative (Negative) Ur Leukocyte Esterase Moderate (2+) H (Negative) Urine RBC >20 H (0-2) /HPF Urine WBC 11-20 H (0-5) /HPF Ur Squamous Epith Cells 0-2 (0-2) /HPF Urine Bacteria None Seen (None Seen) Hyaline Casts 0-2 (0-2) /LPF COVID-19 (KAROLYN) (Negative) COVID-19 Clin Com Blood Type O Positive Antibody Screen NEGATIVE <Julisa Ribera NP - Last Filed: 08/17/22 01:11> Independent Interpretation I performed an independent interpretation of an: Ultrasound <Julisa Ribera NP - Last Filed: 08/17/22 01:11> Radiology Impression Discussion of test interpretation with radiology: I have reviewed the radiologist's reading. <MEGAN Clarke Last Filed: 08/17/22 01:11> Radiologist Impression: EXAMINATION: US PELVIS COMPLETE CLINICAL INFORMATION: Left pelvic pain, heavy bleeding with clots COMPARISON: None TECHNIQUE: Transabdominal and transvaginal imaging was performed. FINDINGS: The uterus is of normal size and echogenicity measuring 12.5 x 5.7 x 6.3 cm. Uterus is retroverted in position. A regular homogeneous endometrium is identified measuring 0.2 cm. The endocervical canal is distended with soft tissue which demonstrates internal vascularity and a feeding vessel measuring approximately 2.5 x 2.6 x 1.8 cm which may reflect an endocervical polyp or endocervical mass, recommend correlation with direct inspection. Both ovaries are of normal size and echogenicity. The right measures 2.7 x 1.8 x 1.8 cm for a volume of 4.6 mL. The left measures 2.8 x 2.4 x 2.0 cm for a volume of 7.0 mL. Normal vascular flow is present within the ovaries. There is a 3.5 cm unilocular simple left ovarian cyst, certainly benign, no follow-up imaging recommended. There is no pelvic free fluid. US/US pelvic and transvaginal IMPRESSION: ? The endocervical canal is distended with soft tissue which demonstrates internal vascularity and a feeding vessel measuring approximately 2.5 cm which may reflect an endocervical polyp or endocervical mass, recommend correlation with direct inspection. <Julisa Ribera NP - Last Filed: 08/17/22 01:11> Independent Historian Clinical information obtained from an independent historian. History obtained from or confirmed by: Spouse <Julisa Ribera NP - Last Filed: 08/17/22 01:11> External Record Review External record reviewed: Outpatient record and Prior outpatient labs <Julisa Ribera NP - Last Filed: 08/17/22 01:11> Prescription Management I considered prescription management with: Antibiotic and Other (Hormone, iron) <Jluisa Ribera NP - Last Filed: 08/17/22 01:11> Discharge Plan Discharge Clinical Impression: Mass of uterine cervix, Abnormal uterine bleeding, Urinary tract infection <ISABEL Rivers - Last Filed: 08/16/22 17:22> Patient Disposition: Home, Self-Care <ISABEL Rivers - Last Filed: 08/16/22 17:22> Instructions: Dysfunctional Uterine Bleeding (ED), Urinary Tract Infection in Women (ED) <ISABEL Rivers - Last Filed: 08/16/22 17:22> Additional Instructions: You were evaluated for abnormal vaginal bleeding. Pelvic ultrasound indicates internal vascularity measuring 2.5 cm. You must follow up with OBGYN of your choosing. These findings could possibly be polyp, mass, cancer, or fibroid. You may need surgery for this finding. Maintain pelvic rest. That means nothing in the vagina until your evaluated by your OBGYN. If you have any excessive vaginal bleeding, dizziness, weakness, palpitations, or any other emergent findings please present to the emergency department for evaluation. You may consider choosing the facility that employs the OBGYN of your choosing. Take Provera 10 mg daily for the next 30 days. Take iron sulfate 324 mg twice a day. Take cefuroxime 500 mg every 12 hours for the next 7 days. Your next dose is due at 10:00 Thank you for choosing this emergency department for evaluation. Please follow-up with primary care physician as needed. Return to the emergency department for any new, concerning, or worsening symptoms. <ISABEL Rivers - Last Filed: 08/16/22 17:22> Prescriptions: New medroxyprogesterone [Provera] 10 mg tablet 10 mg PO DAILY 30 Days Qty: 30 0RF cefuroxime axetil 500 mg tablet 500 mg PO Q12H 7 Days Qty: 14 0RF ferrous sulfate 325 mg (65 mg iron) tablet,delayed release (DR/EC) 325 mg PO BID 30 Days Qty: 60 3RF No Action multivitamin Tablet 1 tab PO DAILY meloxicam 15 mg tablet 15 mg PO DAILY Qty: 14 0RF cyclobenzaprine 10 mg tablet 10 mg PO BEDTIME Qty: 14 0RF ferrous sulfate [Feosol] 325 mg (65 mg iron) tablet 325 mg PO DAILY meclizine 12.5 mg tablet 12.5 mg PO DAILY Qty: 10 0RF <ISABEL Rivers - Last Filed: 08/16/22 17:22> Referrals: [facility] [Provider Group] - 3 days (Provider of her choosing ) <ISABEL Rivers - Last Filed: 08/16/22 17:22> Stand Alone Forms: Work/School Release <ISABEL Rivers - Last Filed: 08/16/22 17:22>
[2022-08-16 17:47] LABS: MANUAL DIFF FLAG NO
[2022-08-16 17:49] LABS: Basophils Percent Auto 0.3 % (0-2); Eosinophils Percent Auto 0.7 % (0-4); Hematocrit 29.6 % (37.0-47.0); Hemoglobin 9.2 g/dl (12.0-16.0); Imm Gran Abs Auto 0.01 X10*3/uL (0.00-0.03); Imm Gran Pct Auto 0.2 % (0.0-0.4); Lymphocytes Absolute Auto 2.4 X10*3/uL (1.2-4.9); Lymphocytes Percent Auto 39.9 % (20-40); Mean Corpuscular HGB Conc 31.1 g/dl (31.0-35.0); Mean Corpuscular Hemoglobin 22.1 pg (27.0-33.0); Mean Corpuscular Volume 71.2 fL (80.0-98.0); Monocytes Absolute Auto 0.5 X10*3/uL (0.1-1.2); Monocytes Percent Auto 8.6 % (2-11); Neutrophils Absolute Auto 3.1 x10*3/uL (2.0-8.3); Neutrophils Percent Auto 50.3 % (45-73); Platelet Count 212 X10*3/uL (160-400); Red Blood Count 4.16 X10*6/uL (4.20-5.50); Red Cell Distribution Width 16.1 % (11.0-16.0); White Blood Count 6.1 X10*3/uL (4.8-10.8)
[2022-08-16 18:09] LABS: COVID-19 Test Negative (Negative); IDNOW Serial# BCCEAD1C
[2022-08-16 18:15] LABS: Alanine Aminotransferase 28 U/L (0-31); Alkaline Phosphatase 52 U/L (39-117); Anion Gap 14 (12-20); Aspartate Amino Transferase 24 U/L (5-31); Bilirubin Total 0.2 mg/dL (0.0-1.0); Blood Urea Nitrogen 19 mg/dL (9-16); Calcium 9.2 mg/dL (8.4-10.2); Carbon Dioxide 22 mmol/L (22-29); Chloride 107 mmol/L (96-108); Creatinine Clr Calc Pharmacy 78.4; Estimated Glomerular Filt Rate > 60; Glucose Random 95 mg/dL (60-115); Potassium 4.1 mmol/L (3.3-5.1); Sodium 139 mmol/L (135-145); Total Protein 6.7 g/dL (6.5-8.0)
[2022-08-16 18:18] LABS: HCG Quantitative < 2 mIU/mL
--- NOTE | 2022-08-16 19:10 | PC.NURSE ---
assumed care of pt aox4 no apparent distress resting quietly w/ at bedside
[2022-08-16 19:20] VITALS: BP 112/69; PULSE 69; RESP 16; TEMP 36.8; O2SAT 100
[2022-08-16 19:47] LABS: Appearance Urine Clear; Color Urine Yellow; Glucose Urine UA Negative (Negative); Leukocyte Esterase Urine Moderate (2+) (Negative); Nitrite Urine Negative (Negative); UMIC TRIGGER UACC YES; Urine Blood Large (3+) (Negative); Urine Ketones Negative (Negative); Urine Protein Negative (Neg-Trace)
[2022-08-16 19:52] LABS: Bacteria Urine None Seen (None Seen); Hyaline Casts Urine 0-2 /LPF (0-2); RBC Urine >20 /HPF (0-2); Squamous Epithelial Cell Urine 0-2 /HPF (0-2); UACC Culture Trigger YES
--- NOTE | 2022-08-16 22:28 | P.CONOB_ITS ---
SUBJECT SCIENTIFIC RESEARCH - CN: HPI Data of Consult Consult date: 08/16/22 Primary Care Provider: Nonstaff Physician Consult Narrative Narrative: I was consulted on Tramaine Rivera who is a 47 year old female presents to emergency room with history of heavy menstrual bleeding, associated with left- sided pelvic cramping and passage of blood clots. Her bleeding started after intercourse yesterday, it stopped and restarted today. No other associated GI or symptoms, no fever or chills. The patient gives a history of 2 polypectomies a year ago at [facility] Today in the emergency room the following workup was done: H&H 9.2/29.6, hCG negative. Pelvic ultrasound showed the following : an endocervical soft tissue with internal vascularity and a feeding vessel measuring 2.5 cm which may reflect endocervical polyp or endocervical mass cc:: CC: OB [facility] Past Medical History Medical History Gestational diabetes ARCHIBALD (headache) History of palpitations Occipital neuralgia Surgical History Surgical History History of delivery History of cholecystectomy Social History Social History Housing: House Alcohol intake: never Patient Tobacco Use Status: Never used Tobacco e-Cigarette/Vaping Use: Never Used Second Hand Smoke Exposure: No Advance Directives: No Advance Directives Information Provided: No service: No Current occupational status: employed 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 Cognitive needs: No Hearing needs: No Vision needs: Yes (glasses) Meds Allergies Allergy/AdvReac Type Severity Reaction Status Date / Time Quinidine-Quinine Analogues Allergy itch Verified 05/12/22 11:08 (Cincho Influenza vaccine AdvReac Severe sever flu Uncoded 05/12/22 11:08 like symptoms Home Medications Medication Instructions Recorded Confirmed Last Taken Type multivitamin 1 tab PO DAILY 02/16/22 Unknown History ferrous sulfate 325 mg (65 mg 325 mg PO DAILY 05/12/22 Unknown History iron) tablet (Feosol) SUBJECT SCIENTIFIC RESEARCH Physical Exam Vitals Vital signs: Temp Pulse Resp BP Pulse Ox O2 Del Method 98.3 F 69 16 112/69 100 Room Air 08/16/22 19:20 08/16/22 19:20 08/16/22 19:20 08/16/22 19:20 08/16/22 19:20 08/16/22 19:20 BMI result Body Mass Index 24.2 Abdomen Auscultation/Inspection/Palpation: Normal bowel sounds, Soft and Non-distended Female Genitalia (Pelvic) Bladder/Urethra: Normal meatus Vulva: No lesions Vagina: Nontender Cervix: Polyp (2.5 cm mass protruding through the cervix possible polyp/myoma or mass of different etiology) Uterus: Normal size Additional Comments: No evidence of active bleeding SUBJECT SCIENTIFIC RESEARCH - Results Labs 08/16/22 17:43 08/16/22 17:43 Labs: Short CBC 08/16/22 Range/Units 17:43 WBC 6.1 (4.8-10.8) X10*3/uL Hgb 9.2 L (12.0-16.0) g/dl Hct 29.6 L (37.0-47.0) % Plt Count 212 (160-400) X10*3/uL BMP 08/16/22 17:43 Sodium 139 Potassium 4.1 Chloride 107 Carbon Dioxide 22 BUN 19 H Creatinine 0.83 Calcium 9.2 D Liver Function 08/16/22 Range/Units 17:43 Total Bilirubin 0.2 (0.0-1.0) mg/dL AST 24 (5-31) U/L ALT 28 (0-31) U/L Alkaline Phosphatase 52 (39-117) U/L Albumin 4.0 (3.5-5.0) g/dL Urine 08/16/22 Range/Units 19:35 Urine Color Yellow Urine Appearance Clear Urine pH 6.0 (5.0-9.0) Ur Specific Sears 1.010 (1.005-1.025) Urine Protein Negative (Neg-Trace) mg/dL Urine Glucose (UA) Negative (Negative) mg/dL Antibody Screen Antibody Screen NEGATIVE 08/16/22 19:34 Imaging US - abdomen: Radiologist's impression: ITS Impressions Doppler Study Ultrasound 08/16/22 19:15 IMPRESSION: The endocervical canal is distended with soft tissue which demonstrates internal vascularity and a feeding vessel measuring approximately 2.5 cm which may reflect an endocervical polyp or endocervical mass, recommend correlation with direct inspection. Pelvic/Transvag US 08/16/22 19:15 IMPRESSION: The endocervical canal is distended with soft tissue which demonstrates internal vascularity and a feeding vessel measuring approximately 2.5 cm which may reflect an endocervical polyp or endocervical mass, recommend correlation with direct inspection. Assessment and Plan (1) Abnormal uterine bleeding: Status: Acute Endocervical mass possible polyp/myoma other etiology Plan Repeat H&H showed 9.2/29.4 Discussed with the patient the findings on her pelvic exam and pelvic ultrasound, in addition, discussed with the patient the differential diagnosis including but not limited to: Endocervical polyp, myoma, malignancy and others. Recommended to call for an appointment for follow-up fer in outpatient crematory attendant office for evaluation, hysteroscopy D&C possible endocervical polypectomy/myomectomy to rule out endometrial/endocervical pathology including polyp, myoma, hyperplasia and/or malignancy. Discharge home on Provera 10 mg p.o. q.d. instructions given the patient to come back to the emergency room in case of recurrence of her vaginal bleeding, fever above 100.4, or pelvic pain. All questions answered, the patient verbalized understanding. Instructed the patient to call our office for an appointment fer, the patient verbalized understanding agreed with the plan. Discussed the case, finding and plan of care with Dory Wyatt NP Time Spent With Patient Time: Total time managing care of this patient today ____ minutes.
[2022-08-17 00:09] VITALS: BP 108/58; PULSE 58; RESP 16; TEMP 37.2; O2SAT 97
[2022-08-17 00:11] LABS: MANUAL DIFF FLAG NO
[2022-08-17 00:12] LABS: Basophils Percent Auto 0.2 % (0-2); Eosinophils Absolute Auto 0.1 X10*3/uL (0.0-0.4); Eosinophils Percent Auto 0.9 % (0-4); Hematocrit 29.4 % (37.0-47.0); Hemoglobin 9.2 g/dl (12.0-16.0); Imm Gran Abs Auto 0.01 X10*3/uL (0.00-0.03); Imm Gran Pct Auto 0.2 % (0.0-0.4); Lymphocytes Absolute Auto 2.9 X10*3/uL (1.2-4.9); Lymphocytes Percent Auto 50.7 % (20-40); Mean Corpuscular HGB Conc 31.3 g/dl (31.0-35.0); Mean Corpuscular Hemoglobin 22.2 pg (27.0-33.0); Mean Platelet Volume 10.5 fL (9.4-12.3); Monocytes Absolute Auto 0.4 X10*3/uL (0.1-1.2); Monocytes Percent Auto 7.4 % (2-11); Neutrophils Absolute Auto 2.4 x10*3/uL (2.0-8.3); Neutrophils Percent Auto 40.6 % (45-73); Platelet Count 214 X10*3/uL (160-400); Red Blood Count 4.14 X10*6/uL (4.20-5.50); Red Cell Distribution Width 15.9 % (11.0-16.0); White Blood Count 5.8 X10*3/uL (4.8-10.8)
--- NOTE | 2022-08-17 01:47 | PC.NURSE ---
no apparent distress resting quietly while at bedside
[2022-08-17 03:00] LABS: CT PCR NOT DETECTED (Not Detect.); NG PCR NOT DETECTED (Not Detect.)
== END 2022-08-17 01:48 | disposition home or self-care (01) ==
PROVIDERS: Nurse Practitioner Family; Physician Assistant; Emergency Provider Emergency Medicine Emergency Medical Services
DX: N93.9 Abnormal uterine and vaginal bleeding, unspecified (principal); N39.0 Urinary tract infection, site not specified; N93.8 Other specified abnormal uterine and vaginal bleeding; R51.9 Headache, unspecified; R10.2 Pelvic and perineal pain; R42 Dizziness and giddiness; R19.05 Periumbilic swelling, mass or lump; Z20.822 Contact with and (suspected) exposure to COVID-19; Z20.828 Contact with and (suspected) exposure to other viral communicable diseases; Z79.899 Other long term (current) drug therapy
CPT/HCPCS: 0353U; 36415; 76830; 76856; 80053; 81001; 83735; 84702; 85025; 86850; 86900; 86901; 87086; 87147; 87635; 93975; 99284

== ENCOUNTER 2022-08-21 11:02 | Outpatient (REF) | payer OTHER, SELFPAY ==
--- NOTE | ~2022-08-21 | MM_ITS ---
EXAMINATION: MM SCREENING DIGITAL BREAST TOMOSYNTHESIS, BILATERAL CLINICAL INFORMATION: Screening. Asymptomatic. The lifetime risk of breast cancer based on the Tyrer-Cuzick Model is 8%. COMPARISON: Mammography and right breast ultrasound 02/13/2022; outside mammography and bilateral ultrasound Naomi Rivera, 07/23/2021. TECHNIQUE: Digital breast tomosynthesis is performed in both the craniocaudal and mediolateral oblique views along with computer-aided detection (CAD). Synthesized 2D images are generated from the tomosynthesis. FINDINGS: There are scattered areas of fibroglandular density (ACR BI-RADS breast composition Category b). There are no significant masses, abnormal calcifications, or other abnormalities. Parenchymal pattern is similar to prior exams. There is no developing density or architectural abnormality. The axilla and skin contours are unremarkable. No significant changes. MM/MM tomosynthesis screening BI IMPRESSION: No mammographic evidence of malignancy. ASSESSMENT: BI-RADS 1: Negative RECOMMENDATION: Routine annual mammography screening. This patient's information was entered into a reminder system with a target due date for their next mammogram.
== END 2022-08-21 11:03 | disposition home or self-care (01) ==
LOC: HO.MAMMO 11:02
PROVIDERS: Visit Provider Internal Medicine
DX: Z12.31 Encounter for screening mammogram for malignant neoplasm of breast (principal)
CPT/HCPCS: 77063; 77067

== ENCOUNTER 2022-09-25 09:31 | Outpatient (REF) | payer OTHER, SELFPAY ==
[2022-09-25 10:33] LABS: Basophils Percent Auto 0.3 % (0-2); Eosinophils Percent Auto 0.5 % (0-4); Hematocrit 31.4 % (37.0-47.0); Hemoglobin 9.6 g/dl (12.0-16.0); Imm Gran Abs Auto 0.02 X10*3/uL (0.00-0.03); Imm Gran Pct Auto 0.3 % (0.0-0.4); Lymphocytes Absolute Auto 2.1 X10*3/uL (1.2-4.9); Lymphocytes Percent Auto 33.6 % (20-40); MANUAL DIFF FLAG SCAN; Mean Corpuscular HGB Conc 30.6 g/dl (31.0-35.0); Mean Corpuscular Hemoglobin 22.1 pg (27.0-33.0); Mean Corpuscular Volume 72.2 fL (80.0-98.0); Monocytes Absolute Auto 0.5 X10*3/uL (0.1-1.2); Monocytes Percent Auto 8.3 % (2-11); Neutrophils Absolute Auto 3.5 x10*3/uL (2.0-8.3); PLT CLUMP 1; Red Blood Count 4.35 X10*6/uL (4.20-5.50); Red Cell Distribution Width 16.6 % (11.0-16.0); SCAN SMEAR FLAG 1
[2022-09-25 10:57] LABS: Platelet Count 163 X10*3/uL (160-400); White Blood Count 6.2 X10*3/uL (4.8-10.8)
[2022-09-25 10:58] LABS: Alanine Aminotransferase 13 U/L (0-31); Albumin Level 3.9 g/dL (3.5-5.0); Alkaline Phosphatase 56 U/L (39-117); Anion Gap 10 (12-20); Aspartate Amino Transferase 17 U/L (5-31); Bilirubin Total 0.7 mg/dL (0.0-1.0); Blood Urea Nitrogen 8 mg/dL (9-16); Calcium 9.1 mg/dL (8.4-10.2); Carbon Dioxide 27 mmol/L (22-29); Chloride 106 mmol/L (96-108); Cholesterol 174 mg/dL; Estimated Glomerular Filt Rate > 60; Glucose Fasting 89 mg/dL (60-99); HDL Cholesterol 51 mg/dL; Iron 85 mcg/dL (30-160); LDL Cholesterol Calculated 113 mg/dl; Percent Iron Saturation 25 % (15-50); Potassium 4.4 mmol/L (3.3-5.1); SLIDE REVIEW VERIFIED; Sodium 139 mmol/L (135-145); Total Iron Binding Capacity 343 mcg/dL (228-428); Total Protein 6.6 g/dL (6.5-8.0); Triglycerides 50 mg/dL; Unsaturated Iron Binding 258 ug/dL
[2022-09-25 11:30] LABS: Folate 14.9 ng/mL (> or = 4.0); TSH reflex Free T4 0.64 uIU/mL (0.32-4.0); Vitamin B12 854 pg/mL (200-900); Vitamin D 25-OH Total 25.9 ng/mL (>30)
== END 2022-09-25 09:32 | disposition home or self-care (01) ==
LOC: HO.LAB 09:31
PROVIDERS: PCP Nurse Practitioner Family; Visit Provider Nurse Practitioner Family
DX: Z00.00 Encounter for general adult medical examination without abnormal findings (principal); Z13.220 Encounter for screening for lipoid disorders; Z13.1 Encounter for screening for diabetes mellitus; N93.9 Abnormal uterine and vaginal bleeding, unspecified
CPT/HCPCS: 36415; 80053; 80061; 82306; 82607; 82746; 83540; 84443; 85025

== ENCOUNTER → 2022-11-13 10:51 | Outpatient (BNV) | payer OTHER, SELFPAY | PROVIDERS: PCP Nurse Practitioner Family; Visit Provider Internal Medicine Medical Oncology | DX: D64.9 Anemia, unspecified (principal) | CPT/HCPCS: 99204; 99213 ==

== ENCOUNTER 2022-11-26 10:58 | Outpatient (REF) | payer OTHER, SELFPAY | END 2022-11-26 10:59 | disposition home or self-care (01) | LOC: HO.MDS 10:58 | PROVIDERS: Visit Provider Internal Medicine Medical Oncology | DX: D50.9 Iron deficiency anemia, unspecified (principal) | CPT/HCPCS: 96365; J1439 ==

== ENCOUNTER 2022-12-04 12:18 | Outpatient (REF) | payer OTHER, SELFPAY | END 2022-12-04 12:19 | disposition home or self-care (01) | LOC: HO.MDS 12:18 | PROVIDERS: Visit Provider Internal Medicine Medical Oncology | DX: D50.8 Other iron deficiency anemias (principal) | CPT/HCPCS: 96365; J1439 ==

== ENCOUNTER 2022-12-18 10:00 | Outpatient (RCR) | payer OTHER, SELFPAY ==
--- NOTE | 2022-10-09 14:28 | MHC.PT.EP ---
[facility] [place] Office [place] Office [place] Office [address] Kerry Worthy [address] [phone] F: [phone] F: [phone] F: [phone] F: [phone] Physical Therapy Plan of Care Date of Evaluation: Date of Surgery: n/a Diagnosis: cervicalgia Assessment: Patient is a 47 year old female presenting to PT with complaints of pain in her neck. 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 She presents today with impairments in pain, cervical ROM, shoulder ROM, posture, shoulder strength, DNF strength. 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 Pt expresses salvage determiner goal of reducing pain, and is motivated to work towards this in PT. Clinical presentation today is most consistent with signs and sx associated with neck pain and pt will benefit from skilled PT 2 week x 4 weeks to address the following problems and impairments noted upon evaluation: pain, cervical ROM, shoulder ROM, posture, shoulder strength, DNF strength. These problems limit the patient with the following functional activities: lifting, work, ADLs, laundry. The prescribed treatment plan of care is medically necessary. Co-morbidities of none were identified and taken into considerations of plan of care. Pt was educated on HEP, role of PT, prognosis, POC. Frequency and Duration: The patient will be seen 2 x week x 4 weeks Short Term Goals: Pt will demonstrate centralization of sx in 2 weeks for improved QOL. Pt will demonstrate improved shoulder MMT strength by 1/3 grade in 2 weeks on R. Pt will demonstrate improved postural awareness by sitting with biomechanically correct posture without cues throughout session to improve overall postural function in 2 weeks. 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 Pt will demonstrate ability to lift her laundry basket with min to no pain/sx in 4 weeks for return to PLOF. Pt will demonstrate ability to transfer patients at work with min to no pain or sx in 4 weeks for improved tolerance to work. Treatment Plan: Modalities to reduce pain, spasms and effusion. Manual therapy to restore motion and function. Therapeutic exercise to improve strength and flexibility. Neuromuscular re-education for posture and balance. Therapeutic activities to return to functional activities of daily living. Electronically signed by: Madhuri Batres, PT, DPT, ATC Please sign and return to therapist. Thank you for your referral.
--- NOTE | 2022-12-18 10:58 | MHC.PT.DC ---
[facility] [place] Office [place] Office [place] Office [address] Kerry Worthy [address] [phone] F: [phone] F: [phone] F: [phone] F: [phone] Physical Therapy Discharge Report Diagnosis: cervicalgia Date of Surgery: n/a Date of Evaluation: 10/09/22 Date of Discharge: 12/18/22 Treatments to Date: 6 Cancellations to Date: 3 No Shows to Date: 0 Discharge Status: Patient Elected to Stop Discharge Summary: 12/18/2022: She wants to stop PT and follow up with her doctor and get imaging as her pain is improved but not fully better. Therefore we will d/c at this time per her request. Her pain is better and she has less radicular sx but after lifting at work it is still troublesome. Advised her to continue with her HEP while she is waiting for her follow up as well as the tennis ball release. Electronically signed by: Madhuri Batres, PT, DPT, ATC Please sign and return to therapist. Thank you for your referral.
== END 2022-12-18 10:58 | disposition home or self-care (01) ==
LOC: HO.PTCHIC 10:00
PROVIDERS: PCP Nurse Practitioner Family; Visit Provider Nurse Practitioner Family
DX: M54.2 Cervicalgia (principal)
CPT/HCPCS: 97110; 97140; 97161

== ENCOUNTER 2023-01-01 10:29 | Outpatient (AMB) | payer OTHER, SELFPAY ==
[2023-01-01 10:31] VITALS: BP 110/76; PULSE 67; O2SAT 98; BMI 22.8
--- NOTE | 2023-01-01 10:31 | A.OFFPC_ITS ---
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 Required: No Allergies Quinidine-Quinine Analogues (Cincho Allergy (Verified 01/01/23 10:43) itch Influenza vaccine Adverse Reaction (Severe, Uncoded 01/01/23 10:43) sever flu like symptoms dairy Adverse Reaction (Mild, Uncoded 01/01/23 10:43) Hives Medication List - Last Reconciled 01/01/23 by CINDA Pride cholecalciferol (vitamin D3) 25 mcg PO DAILY ferrous sulfate 324 mg PO DAILY leuprolide (Lupron Depot) mg IM multivitamin 1 tab PO DAILY tranexamic acid 1,300 mg PO TID PRN Tobacco use date assessed: 01/01/23 Dental Screening Dental Screen Date: 01/01/23 Did you have a dental visit in the last 12 months?: Yes Did you have a dental problem in the last 6 months where you did not have access to dental care?: No Was dental information given to patient?: Patient has dentist HPI follow up labs HPI Details Patient is a 47-year-old female presents today for a routine follow-up. Medical history significant for vitamin-D deficiency, uterine fibroid-followed by gynecology Dr. Red at [facility] - currently on Lupron and tranexamic - reports possibly will be having surgery for fibroids, chronic headache, constipation, abnormal uterine bleeding-followed by gynecology, anemia-followed by Dr. Rizvi - reports receiving iron injections, neck pain, and right shoulder pain x 1 year - hurt at work - reports finishing physical therapy with no much improvement in pain. Reports she does not like to take pain medications. Recent blood work results reviewed with the patient. 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 How often do you have a drink containing alcohol?: Never Total Score: 0 Score Reviewed/Action Taken: No SOURAV-7 AMB Questionnaire SOURAV-7 Date SOURAV - 7 assessed: 09/18/22 Source: Developed by Drs. Josh Beltre, rPincess Andersen, Jairo Aparicio and colleagues, with an educational nicolle from [employer]. Review of Systems Const Denies body aches, Denies chills, Denies fever(s) and Denies headache(s) Eyes Denies change in vision ENT Denies dizziness, Denies otalgia, Denies headache(s), Denies nasal discharge, Denies sinus pain and Denies sore throat Card Denies chest pain, Denies edema, Denies lightheadedness and Denies dyspnea Resp Denies cough and Denies dyspnea GI Denies constipation, Denies diarrhea, Denies nausea and Denies vomiting Denies dysuria Musc Reports back pain, Denies myalgias and Reports arthralgias Skin/Breast Denies lesions and Denies rash Neuro Denies dizziness and Denies headache(s) Physical exam (Primary Care) Vital Signs: Last Vital Signs Pulse 67 01/01/23 10:31 BP 110/76 01/01/23 10:31 Pulse Ox 98 01/01/23 10:31 Oxygen Delivery Method Room Air 01/01/23 10:31 BMI result Body Mass Index 22.8 Tobacco/Smoking Status: Tobacco use Status Tobacco use date assessed 01/01/23 01/01/23 10:32 Patient Tobacco Use Status Never used Tobacco 01/01/23 10:32 e-Cigarette/Vaping Use Never Used 01/01/23 10:32 Thrive Assessment: Date of Thrive Assessment Date Thrive assessed 09/18/22 01/01/23 10:32 Const General: cooperative and no acute distress Orientation/consciousness: patient oriented x3 HENMT Head: Yes normocephalic and Yes atraumatic Face and sinus: Yes sinuses nontender Mouth: oropharynx normal and moist mucous membranes Throat: Yes posterior oropharynx normal Eyes General: appearance normal, both eyes and all related structures Pupils: Equal, round and reactive pupils present EOM: EOMs intact bilaterally Neck Neck: Yes normal visual inspection, Yes full ROM and Yes no lymphadenopathy Thyroid: Thyroid normal Resp Effort & Inspection: normal respiratory effort and able to speak in complete sentences Auscultation: clear to auscultation bilaterally, no crackles, no rales, no rhonchi and no wheezes Cardio Rate: regular rate Rhythm: regular rhythm Heart sounds: S1 normal heart sound present, S2 normal heart sound present and no murmurs GI Palpation (GI): Soft to palpation, not firm, nontender, no guarding, not rigid and no hepatosplenomegaly Auscultation: normal bowel sounds General: No CVA tenderness Back/Spine/Pelvis Back: No CVA tenderness Cervical Spine: cervical muscular tenderness (Right) and No Cervical spine tenderness Skin General skin exam: no rashes or lesions noted Neuro General: patient oriented x3 Cranial nerves: Yes Equal, round and reactive pupils present Gait exam (Neuro): Normal gait present Extrem General: No edema Right upper extremity: shoulder/upper arm Details: tenderness (Anterior ) and abnormal ROM (Pain with range of motion); no swelling, no crepitus, no deformity and no unusual warmth Assessment and Plan Assessment & Plan (1) Right shoulder pain: Code(s): M25.511 - Pain in right shoulder Plan: Suspect musculoskeletal in origin Has finished physical therapy with no much improvement Patient reports that she does not like to take medications Encouraged heating packs p.r.n. Will obtain x-ray (2) Neck pain: Code(s): M54.2 - Cervicalgia Plan: Same as above (3) Anemia: Code(s): D64.9 - Anemia, unspecified Plan: Continue to follow-up with Hematology Dr. Rizvi-receiving iron injections- currently on iron 1 tablet daily as well (4) Elevated LFTs: Code(s): R79.89 - Other specified abnormal findings of blood chemistry Plan: AST 89, ALT 155 12/2022 Will obtain hepatitis panel and abdominal ultrasound Patient denies alcohol or Tylenol consumption (5) Abnormal uterine bleeding: Comment: Anemia Endocervical mass/vascular on pelvic ultrasound Code(s): N93.9 - Abnormal uterine and vaginal bleeding, unspecified Plan: Followed by gynecology Dr. Red at [facility] - currently on Lupron and tranexamic - reports possibly will be having surgery for fibroids Plan Keep appointment with PCP as scheduled or follow-up sooner as needed Orders: Orders Hepatitis A,B,C Profile 01/01/23 R79.89 - Other specified abnormal findings of blood chemistry US abdomen limited 01/01/23 R79.89 - Other specified abnormal findings of blood chemistry XR shoulder RT min 2V 01/01/23 M25.511 - Pain in right shoulder XR cervical spine 3V 01/01/23 M54.2 - Cervicalgia Coding Level of Care Code Est Pt Level 4 (40198) Diagnoses Right shoulder pain M25.511 Neck pain M54.2 Anemia D64.9 Elevated LFTs R79.89 Abnormal uterine bleeding N93.9
== END 2023-01-01 11:04 | disposition home or self-care (01) ==
PROVIDERS: PCP Nurse Practitioner Family; Visit Provider Nurse Practitioner Family
DX: M25.511 Pain in right shoulder (principal); M54.2 Cervicalgia; D64.9 Anemia, unspecified; R79.89 Other specified abnormal findings of blood chemistry; N93.9 Abnormal uterine and vaginal bleeding, unspecified
CPT/HCPCS: 99214

== ENCOUNTER 2023-01-01 11:13 | Outpatient (REF) | payer OTHER, SELFPAY ==
--- NOTE | ~2023-01-01 | XR_ITS ---
EXAMINATION: XR CERVICAL SPINE CLINICAL INFORMATION: Cervicalgia. COMPARISON: None available. TECHNIQUE: Frontal, odontoid and lateral views of the cervical spine were obtained. FINDINGS: Vertebral body heights and alignment are normal. The cervical disc spaces are well-maintained. No acute fracture or spondylolisthesis is seen. At C5-C6 and C6-C7, there is moderate anterior spondylosis. The posterior elements are intact. The dens is intact. There is no prevertebral soft tissue swelling. XR/XR cervical spine 3V IMPRESSION: 1. No acute fracture or spondylolisthesis is seen. 2. The cervical disc spaces well-maintained. 3. At C5-C6 and C6-C7, there is moderate anterior spondylosis.
--- NOTE | ~2023-01-01 | XR_ITS ---
EXAMINATION: XR SHOULDER, RIGHT CLINICAL INFORMATION: Pain. COMPARISON: None available. TECHNIQUE: AP external rotation, Grashey, scapular Y, and axillary views of the right shoulder. FINDINGS: The bones and soft tissues are normal. No fracture. Glenohumeral and acromioclavicular alignment is anatomic with normal joint space. No abnormal soft tissue calcifications. XR/XR shoulder RT min 2V IMPRESSION: Normal right shoulder.
[2023-01-01 11:46] LABS: Hematocrit 37.7 % (37.0-47.0); Hemoglobin 11.8 g/dl (12.0-16.0); Mean Corpuscular HGB Conc 31.3 g/dl (31.0-35.0); Mean Corpuscular Hemoglobin 22.6 pg (27.0-33.0); Mean Corpuscular Volume 72.2 fL (80.0-98.0); Mean Platelet Volume 10.5 fL (9.4-12.3); Platelet Count 149 X10*3/uL (160-400); Red Blood Count 5.22 X10*6/uL (4.20-5.50); Red Cell Distribution Width 16.8 % (11.0-16.0); White Blood Count 3.6 X10*3/uL (4.8-10.8)
[2023-01-01 12:57] LABS: Vitamin D 25-OH Total 52.6 ng/mL (>30)
[2023-01-02 04:23] LABS: HBS Num1 200.96 mIU/mL (0-7.99); HBc Num1 5.52 S/CO (0.00-0.79); HBsAGNum1 0.31 S/CO (0.00-0.99); Hepatitis A Antibody IgM 0.33 Index (0-0.79); Hepatitis B Surface Antigen Negative (Negative); ~HepC Num1 0.09 S/CO (0.00-0.79); ~Hepatitis A Antibody IgM Nonreactive (Nonreactive); ~Hepatitis B Surface Antibody REACTIVE (Nonreactive); ~Hepatitis C Antibody Nonreactive (Nonreactive)
[2023-01-02 05:10] LABS: HBc Num2 5.67 S/CO; HBc Num3 5.55 S/CO; Hepatitis B Core Antibody Reactive (Nonreactive)
== END 2023-01-01 11:14 | disposition home or self-care (01) ==
LOC: HO.LAB 11:13
PROVIDERS: PCP Nurse Practitioner Family; Visit Provider Nurse Practitioner Family
DX: M54.2 Cervicalgia (principal); M25.511 Pain in right shoulder; D64.9 Anemia, unspecified; E55.9 Vitamin D deficiency, unspecified; R79.89 Other specified abnormal findings of blood chemistry
CPT/HCPCS: 36415; 72040; 73030; 82306; 85027; 86704; 86706; 86709; 86803; 87340

== ENCOUNTER 2023-01-08 09:52 | Outpatient (REF) | payer OTHER, SELFPAY ==
--- NOTE | ~2023-01-08 | US_ITS ---
EXAMINATION: US ABDOMEN LIMITED CLINICAL INFORMATION: Other specified abnormal findings of blood chemistry. COMPARISON: X-ray KUB 05/20/2020. TECHNIQUE: Real-time imaging of the right upper quadrant abdominal viscera. FINDINGS: PANCREAS: Normal. LIVER: The liver is normal in size. The liver contour is normal. Increased parenchymal echogenicity. No focal hepatic lesion. There is no intrahepatic biliary duct dilatation seen. GALLBLADDER: Surgically absent. COMMON BILE DUCT: Upper limits of normal measuring 0.6 cm in diameter, which is likely related with cholecystectomy state. RIGHT KIDNEY: Normal. No hydronephrosis. No renal calculi or focal parenchymal lesions. The kidney measures 10.6 cm in maximum dimension. FREE FLUID: None. US/US abdomen limited IMPRESSION: 1. Increased parenchymal echogenicity of the liver is nonspecific, but most commonly on the basis of diffuse hepatocellular disease such as hepatic steatosis. 2. Status post cholecystectomy.
== END 2023-01-08 09:53 | disposition home or self-care (01) ==
LOC: HO.HMGCX 09:52
PROVIDERS: PCP Nurse Practitioner Family; Visit Provider Nurse Practitioner Family
DX: R79.89 Other specified abnormal findings of blood chemistry (principal)
CPT/HCPCS: 76705

== ENCOUNTER 2023-03-03 13:37 | Outpatient (AMB) | payer OTHER, SELFPAY ==
--- NOTE | 2023-03-03 13:41 | AM.OFFWIN_ITS ---
Intake Vital Signs 03/03/23 13:45 Height 5 ft 6 in Weight 141 lb BMI 22.8 BP 104/60 Blood Pressure Location Rt brachial Position Sitting Pulse 73 Pulse Source Pulse Oximeter Temp 96.7 F L Temp Source Temporal Artery Scan Pulse Oximetry (%) 100 Oxygen Delivery Method Room Air Intake Visit Reasons: EP Neck Pain/Dizzy Intake Note: Pt is here c/o neck pain and dizziness for the last three days. no falls or injuriesnoted. Patient Tobacco Use Status: Never used Tobacco Allergies Quinidine-Quinine Analogues (Cincho Allergy (Verified 03/03/23 13:45) itch Influenza vaccine Adverse Reaction (Severe, Uncoded 03/03/23 13:45) severe flu like symptoms dairy Adverse Reaction (Mild, Uncoded 03/03/23 13:45) Hives Do you need a note to return to daycare/school/sports/work: No HPI EP Neck Pain/Dizzy HPI Details 47[facility]vertigo over the last week or so. She has experienced this following going on brisk walks. She denies any trauma to her head or neck. She denies any associated nausea, vomiting, vision changes, palpitations, or headache. She reports that the dizziness resolved with rest and hydration. She denies any new medications or medical conditions. History of anemia, followed by hematology. History of right-sided neck pain, with radiculopathy down right arm. She did complete course of physical therapy for this, which was somewhat helpful, however she she does still have ongoing discomfort. X-rays were ordered by PCP which indicated normal R shoulder, and moderate cervical anterior spondylosis at C5-C6 and C6-C7. 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 Cognitive needs: No Hearing needs: No Vision needs: Yes (glasses) Review of Systems Const All systems reviewed & are unremarkable except as noted in HPI and below Physical Exam Vital Signs: Last Vital Signs Temp 96.7 F L 03/03/23 13:45 Pulse 73 03/03/23 13:45 BP 104/60 03/03/23 13:45 Pulse Ox 100 03/03/23 13:45 Oxygen Delivery Method Room Air 03/03/23 13:45 BMI result Body Mass Index 22.8 Const General: cooperative, healthy appearing, comfortable and no acute distress Nutritional Appearance: average body habitus Orientation/consciousness: patient oriented x3 Limitations: no limitations HEENT Head: Yes normal to inspection, Yes normocephalic and Yes atraumatic Ears: hearing grossly normal bilaterally, external ears normal and TM's normal bilaterally General nose exam: Normal external nose present Face and sinus: Yes normal facial exam, Yes sinuses nontender and Yes face symmetric Mouth: Normal oral and palatal mucosa present Eyes General: appearance normal, both eyes and all related structures Alignment and Position: alignment normal Pupils: Equal, round and reactive pupils present and Pupil accommodation reflex normal EOM: EOMs intact bilaterally Neck Neck: Yes normal visual inspection, Yes no lymphadenopathy, Yes no meningeal signs and Yes no JVD Resp Effort & Inspection: normal respiratory effort and able to speak in complete sentences Auscultation: clear to auscultation bilaterally Cardio Palpation: normal PMI Rate: regular rate Rhythm: regular rhythm Heart sounds: S1 normal heart sound present and S2 normal heart sound present Back/Spine/Pelvis Cervical Spine: normal cervical lordosis and pain with cervical ROM (pain with lateral bending R>L, +Spurlings) Skin General skin exam: no rashes or lesions noted Neuro General: patient oriented x3, gait normal and no meningeal signs Cranial nerves: Yes Equal, round and reactive pupils present and Yes Nystagmus not present Extrem General: Yes capillary refill normal and Yes no clubbing, cyanosis or edema Psych Appearance: grossly normal Mental Status: mental status grossly normal Speech and movement: Normal speech and movement present Assessment & Plan Assessment & Plan (1) Vertigo: Code(s): R42 - Dizziness and giddiness Plan: Patient is having intermittent vertigo/dizzines following mild/moderate exercise over the last week or so. Her VS are stable. She is quickly improved following rest/hydration so it is possible there is a component of hypotension/dehydration following exertion. We discussed changing positions slowly and hydrating throughout the day and particularly surrounding exercise. She does have known anemia and is followed by hematology. A differential also includes cervicogenic dizziness given her cervical spondylosis and right cervical radiculopathy. She has a referral in place to pain management and is just awaiting an appointment there. I advised her to call today to schedule an appt. for further evaluation. I discussed with the patient at length that should these episodes persist, worsen, or if they are accompanied by any other symptoms such as loss of consciousness, vision changes, N/V, or any others, she should go to the ED for evaluation. She also should f/u with her PCP Nalini Felix NP. Patient verbalizes understanding and agrees to plan. I will send her an rx for Meclizine to see if this provides any benefit for the dizziness/vertigo episodes. We reviewed use. Medications: New meclizine 25 mg PO BID 5 days PRN 10 tabs 0RF dizziness R42 - Dizziness and giddiness Coding Level of Care Code Est Pt Level 3 (37095) Diagnoses Vertigo R42
[2023-03-03 13:45] VITALS: BP 104/60; PULSE 73; TEMP 35.9; O2SAT 100; BMI 22.8
== END 2023-03-03 14:24 | disposition home or self-care (01) ==
PROVIDERS: PCP Nurse Practitioner Family; Visit Provider Nurse Practitioner Family
DX: R42 Dizziness and giddiness (principal)
CPT/HCPCS: 99213

== ENCOUNTER 2023-05-24 11:24 | Outpatient (AMB) | payer OTHER, SELFPAY ==
[2023-05-24 11:27] VITALS: BP 120/62; PULSE 66; TEMP 36.9; O2SAT 100; BMI 22.0
--- NOTE | 2023-05-24 11:27 | MHC.OFFWIV ---
Intake Vital Signs 05/24/23 11:27 Height 5 ft 6 in Weight 136 lb 2 oz BMI 22.0 BP 120/62 Blood Pressure Location Lt brachial Position Sitting Pulse 66 Pulse Source Pulse Oximeter Temp 98.5 F Temp Source Oral Pulse Oximetry (%) 100 Intake Visit Reasons: EST/right shoulder pain(lobby) Intake Note: pt is here today for rt shoulder pain started on/off since 2021, she's been to PT, still in pain, getting worse for the last 2 months. Patient Tobacco Use Status: Never used Tobacco Allergies Quinidine-Quinine Analogues (Cincho Allergy (Verified 05/24/23 11:28) itch Influenza vaccine Adverse Reaction (Severe, Uncoded 03/03/23 13:45) severe flu like symptoms dairy Adverse Reaction (Mild, Uncoded 03/03/23 13:45) Hives Do you need a note to return to daycare/school/sports/work: Yes HPI EST/right shoulder pain(lobby) HPI Details 47 year old female patient presents today with ongoing right shoulder pain. 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 She had an XR ordered by PCP in 12/2022 which had normal findings. She recently completed 2 months of PT at [facility] in [place] however has increasing pain. She states she is not sleeping at night due to the pain and pulsating sensation in shoulder. She is right hand dominant. She has tried Ibuprofen without relief. 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 Resp Effort & Inspection: normal respiratory effort and able to speak in complete sentences Auscultation: clear to auscultation bilaterally Cardio Jugular venous distension: no JVD Palpation: normal PMI Rate: regular rate Rhythm: regular rhythm Skin General skin exam: no rashes or lesions noted Extrem Right upper extremity: shoulder/upper arm Details: tenderness Location: of the clavicle Laterality: medially and of the A-C joint and abnormal ROM Details: pain with active ROM Details: in ABduction, in extension and in flexion Psych Appearance: grossly normal Mental Status: mental status grossly normal Speech and movement: Normal speech and movement present Assessment & Plan Assessment & Plan (1) Right shoulder pain: Code(s): M25.511 - Pain in right shoulder Qualifiers: Chronicity: chronic Qualified Code(s): M25.511 - Pain in right shoulder; G89.29 - Other chronic pain Plan: I suspect this is a rotator cuff pathology. X-rays are normal. She completed 2 months of physical therapy without any relief. Pain has been worsening significantly. She is unable to sleep. At this point, I feel she should see orthopedic specialists for evaluation. I will enter this referral. I will confer with her PCP regarding additional imaging prior to ortho consult. In the interim, I will start her on Diclofenac. Reviewed indications, use, possible s/e of this. She can use ice and tylenol as needed as well. She agrees with plan. Orders: Referrals Orthopedics Referral M25.511 - Pain in right shoulder Medications: New diclofenac potassium 25 mg PO BID PRN 30 tabs 0RF pain M25.511 - Pain in right shoulder Coding Level of Care Code Est Pt Level 3 (43912) Diagnoses Chronic right shoulder pain M25.511; G89.29 Chronicity: chronic
== END 2023-05-24 12:55 | disposition home or self-care (01) ==
PROVIDERS: PCP Nurse Practitioner Family; Visit Provider Nurse Practitioner Family
DX: M25.511 Pain in right shoulder (principal); G89.29 Other chronic pain
CPT/HCPCS: 99213

== ENCOUNTER 2023-05-31 08:57 | Outpatient (AMB) | payer OTHER, SELFPAY ==
--- NOTE | 2023-05-31 09:05 | MHC.PC.OV ---
Vital Signs 05/31/23 09:07 Height 5 ft 6 in Weight 133 lb 2 oz BMI 21.5 BP 118/78 Blood Pressure Location Lt brachial Position Sitting Pulse 69 Pulse Source Pulse Oximeter Pulse Oximetry (%) 99 Oxygen Delivery Method Room Air Intake Visit Reasons: f/u right shoulder pain/ shoulder imaging Intake Note: Patient is here to follow up on right shoulder pain radiating down arm and imaging results. Healthcare Economics Consultant Required: No Therapeutic Recreation Specialist: Not Required per policy Accompanied by: Self / Same As Patient Allergies Quinidine-Quinine Analogues (Cincho Allergy (Verified 05/31/23 09:44) itch Influenza vaccine Adverse Reaction (Severe, Uncoded 05/31/23 09:44) severe flu like symptoms dairy Adverse Reaction (Mild, Uncoded 05/31/23 09:44) Hives Medication List - Last Reconciled 05/31/23 by Esteban Xiong MD meclizine 25 mg PO BID PRN 5 days multivitamin 1 tab PO DAILY Tobacco use date assessed: 05/31/23 Dental Screening Dental Screen Date: 05/31/23 Did you have a dental visit in the last 12 months?: Yes Did you have a dental problem in the last 6 months where you did not have access to dental care?: No Was dental information given to patient?: Patient has dentist HPI f/u right shoulder pain/ shoulder imaging HPI Details 47-year-old female presents to the office to discuss her medical problem. I am assuming care for the patient after her primary care provider has left the practice. Towards the end of 2020 patient sustained a work related injury over her right shoulder. Though she did not seek immediate medical attention, she had notified her superiors of the injury. In 2021 she started having pain in the right shoulder with limited range of motion. Several courses of NSAIDs, physical therapy has not improved her symptoms. Patient continue to work with limitations. In the last year her pain has again worsened with limited range of motion. She has not able to lift her arm over the shoulder level now. Difficulty l lifting weights with the right arm. On a different note, routine blood work had shown patient had elevated liver functions. Ultrasound of the abdomen had confirmed that she had fatty liver. 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 1. Little interest or pleasure in doing things: not at all 2. Feeling down, depressed, or hopeless: not at all 3. Trouble falling or staying asleep, or sleeping too much: not at all 4. Feeling tired or having little energy: not at all 5. Poor appetite or overeating: not at all 6. Feeling bad about yourself - or that you are a failure or have let yourself or your family down: not at all 7. Trouble concentrating on things, such as reading the newspaper or watching television: not at all 8. Moving or speaking so slowly that other people could have noticed. Or the opposite - being so fidgety or restless that you have been moving around a lot more than usual: not at all 9. Thoughts that you would be better off or of hurting yourself in some way: not at all Total score: 0 Depression Screening Interpretation: Negative Depression Screening Done: Yes Source: Developed by Drs. Josh Beltre, Princess Andersen, Jairo Aparicio and colleagues, with an educational nicolle from [employer]. Thrive Questionnaire Date Thrive assessed: 05/31/23 I am a: Patient What is your living situation today?: I have a steady place to live Within the past 12 months, did the food you bought not last and you didn't have the money to get more?: Never true Within the past 12 months, did you worry whether your food would run out before you got money to buy more?: Never true Do you have trouble paying for medicines?: No Do you have trouble getting transportation to medical appointments?: No Do you have trouble paying your heating and electricity bill?: No Do you have trouble taking care of your child, family member or friend?: No Do you have trouble with day-to-day activities such as bathing, preparing meals, shopping, managing finances, etc.?: No Are you currently unemployed and looking for a job?: No Are you interested in more education?: No AUDIT C Alcohol Use Questionnaire (AUDIT-C) 1. How often do you have a drink containing alcohol?: Never Total Score: 0 SOURAV-7 AMB Questionnaire SOURAV-7 Date SOURAV - 7 assessed: 05/31/23 Feeling nervous, anxious, or on edge: 0 = Not at all Not being able to stop or control worryin = Not at all Worrying too much about different things: 0 = Not at all Trouble relaxin = Not at all Being so restless that it is hard to sit still: 0 = Not at all Becoming easily annoyed or irritable: 0 = Not at all Feeling afraid as if something awful might happen: 0 = Not at all Total SOURAV-7 score (0-4 normal; 5-9 mild; 10-14 moderate; 15-21 severe): 0 Source: Developed by Drs. Josh Beltre, Princess Andersen, Jairo Aparicio and colleagues, with an educational nicolle from [employer]. Physical exam (Primary Care) Vital Signs: Last Vital Signs Pulse 69 05/31/23 09:07 BP 118/78 05/31/23 09:07 Pulse Ox 99 05/31/23 09:07 Oxygen Delivery Method Room Air 05/31/23 09:07 Care Plan Goal for BP management: Blood pressure is in range. BMI result Body Mass Index 21.5 Tobacco/Smoking Status: Tobacco use Status Tobacco use date assessed 05/31/23 05/31/23 09:17 Patient Tobacco Use Status Never used Tobacco 05/31/23 09:17 e-Cigarette/Vaping Use Never Used 05/31/23 09:17 PHQ-9: PHQ-9 Score PHQ-9: Total score 0 05/31/23 09:17 Depression Screening Interpretation: Negative Thrive Assessment: Date of Thrive Assessment Date Thrive assessed 05/31/23 05/31/23 09:17 Extrem Other: Right shoulder: No AC joint tenderness. Minimal muscular atrophy. Range of motion unable to elevate the arm over 90 degrees. Full adduction. Full forward flexion and extension. Assessment and Plan Assessment & Plan (1) Right shoulder pain: Code(s): M25.511 - Pain in right shoulder Qualifiers: Chronicity: chronic Qualified Code(s): M25.511 - Pain in right shoulder; G89.29 - Other chronic pain Plan: An orthopedic appointment will be requested. Patient probably needs an MRI and further workup. (2) Elevated LFTs: Code(s): R79.89 - Other specified abnormal findings of blood chemistry Plan: Ultrasound results and previous blood work reviewed. 15 minutes spent reviewing the results. Blood work has been ordered again. Patient was informed that she has fatty liver. Coding Level of Care Code Est Pt Level 4 (99639) Diagnoses Chronic right shoulder pain M25.511; G89.29 Chronicity: chronic Elevated LFTs R79.89
[2023-05-31 09:07] VITALS: BP 118/78; PULSE 69; O2SAT 99; BMI 21.5
== END 2023-05-31 09:45 | disposition home or self-care (01) ==
PROVIDERS: PCP Nurse Practitioner Family; Visit Provider Internal Medicine
DX: M25.511 Pain in right shoulder (principal); G89.29 Other chronic pain; R79.89 Other specified abnormal findings of blood chemistry
CPT/HCPCS: 99214

== ENCOUNTER 2023-06-04 10:37 | Outpatient (REF) | payer OTHER, SELFPAY ==
[2023-06-04 12:12] LABS: Alanine Aminotransferase 114 U/L (0-31); Albumin Level 4.2 g/dL (3.5-5.0); Alkaline Phosphatase 86 U/L (39-117); Aspartate Amino Transferase 64 U/L (5-31); Bilirubin Direct 0.1 mg/dL (0.0-0.5); Bilirubin Total 0.3 mg/dL (0.0-1.0); Total Protein 7.7 g/dL (6.5-8.0)
== END 2023-06-04 10:38 | disposition home or self-care (01) ==
LOC: HO.LAB 10:37
PROVIDERS: PCP Internal Medicine; Visit Provider Internal Medicine
DX: R79.89 Other specified abnormal findings of blood chemistry (principal)
CPT/HCPCS: 36415; 80076

== ENCOUNTER 2023-06-15 08:53 | Outpatient (AMB) | payer OTHER, SELFPAY ==
[2023-06-15 08:57] VITALS: BMI 21.5
--- NOTE | 2023-06-15 08:57 | MHC.OFFVIS ---
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 Patient reports t hat her pain is a 10 on the 1-10 pain scale. She states that her pain has been going on for about 2 years and is getting worse. 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 She did physical therpy took NSAIDS but did not help. The patient states that she has difficulty sleeping because of her pain. She has weakness when lifting her right hand above shoulder height. Allergies Quinidine-Quinine Analogues (Cincho Allergy (Verified 06/15/23 09:05) itch Influenza vaccine Adverse Reaction (Severe, Uncoded 05/31/23 09:44) severe flu like symptoms dairy Adverse Reaction (Mild, Uncoded 05/31/23 09:44) Hives Medication List - Last Reconciled 06/15/23 by Lenny Villegas MD meclizine 25 mg PO BID PRN 5 days multivitamin 1 tab PO DAILY PFSH Medical History (Updated 05/24/23 @ 13:06 by CINDA Morrison) Occipital neuralgia Gestational diabetes ARCHIBALD (headache) History of palpitations Surgical History (Updated 05/31/23 @ 09:16 by MARGY Law) History of myomectomy History of colonoscopy History of cholecystectomy History of delivery Social History Housing: House Alcohol intake: never Patient Tobacco Use Status: Never used Tobacco e-Cigarette/Vaping Use: Never Used Second Hand Smoke Exposure: No service: No Current occupational status: employed 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 Cognitive needs: No Hearing needs: No Vision needs: Yes (glasses) Physical Exam Vital Signs: BMI result Body Mass Index 21.5 Const Other: Well-nourished well-developed very friendly female awake alert and oriented x3 in no acute distress Neck Other: Cervical spine examination shows right-sided paraspinal muscle tenderness, pain with range of motion, positive Spurling's test Extrem Other: Bilateral upper extremity examination shows good capillary refill, no skin lesions noted, normal sensation light touch Right shoulder examination shows decreased range of motion when compared to her left shoulder, 4+ out of 5 strength with supraspinatus testing, positive impingement signs, tenderness over her acromioclavicular joint, no instability Results Reviewed Results Reviewed: X-rays of the patient's right shoulder show moderate acromioclavicular joint narrowing, a type 2 acromion, no acute bony abnormalities Assessment & Plan Assessment & Plan (1) Right shoulder pain: Code(s): M25.511 - Pain in right shoulder Qualifiers: Chronicity: chronic Qualified Code(s): M25.511 - Pain in right shoulder; G89.29 - Other chronic pain (2) Neck pain: Code(s): M54.2 - Cervicalgia Plan Ms. Rivera presents with progressively worsening right shoulder pain due to impingement syndrome as well as possible rotator cuff tearing. She also has neck pain which radiates down her right arm possibly due to cervical stenosis. At this point the patient's shoulder pain is more bothersome to her than is her neck pain. Thus, I will send the patient for an MRI of her right shoulder to further evaluate the status of her rotator cuff tendons. I will see her back once the MRI is completed to discuss the findings and treatment options. She will continue with her range of motion exercises in the meantime to prevent stiffness. Feel free to call me at any time should questions regarding her orthopedic management arise. Thank you very much for asking me to see this very friendly patient. I spent 22 minutes in reviewing the patient's records and imaging studies, seeing the patient and documenting in the medical record. Orders: Orders MR shoulder RT wo con Today M25.511 - Pain in right shoulder Coding Level of Care Code New Pt Level 2 (14605) Diagnoses Chronic right shoulder pain M25.511; G89.29 Chronicity: chronic Neck pain M54.2
== END 2023-06-15 09:23 | disposition home or self-care (01) ==
PROVIDERS: PCP Nurse Practitioner Family; Visit Provider Orthopaedic Surgery
DX: M25.511 Pain in right shoulder (principal); G89.29 Other chronic pain; M54.2 Cervicalgia
CPT/HCPCS: 99202

== ENCOUNTER → 2023-06-15 08:53 | Outpatient (BNVA) | payer MEDICAID, SELFPAY | PROVIDERS: PCP Nurse Practitioner Family; Visit Provider Orthopaedic Surgery | DX: M25.511 Pain in right shoulder (principal); G89.29 Other chronic pain; M54.2 Cervicalgia | CPT/HCPCS: 99202 ==

== ENCOUNTER 2023-08-27 10:36 | Outpatient (REF) | payer MEDICAID, SELFPAY | END 2023-08-27 10:37 | disposition home or self-care (01) | LOC: HO.MAMMO 10:36 | PROVIDERS: PCP Internal Medicine; Visit Provider Internal Medicine | DX: Z12.31 Encounter for screening mammogram for malignant neoplasm of breast (principal) | CPT/HCPCS: 77063; 77067 ==

== ENCOUNTER → 2023-08-27 11:00 | Outpatient (BNV) | payer MEDICAID, SELFPAY | PROVIDERS: PCP Internal Medicine; Visit Provider Radiology Diagnostic Radiology | DX: Z12.31 Encounter for screening mammogram for malignant neoplasm of breast (principal) | CPT/HCPCS: 77063; 77067 ==

== ENCOUNTER 2023-10-07 10:25 | Outpatient (AMB) | payer OTHER, SELFPAY ==
--- NOTE | 2023-10-07 10:43 | A.OFFPC_ITS ---
Vital Signs 10/07/23 10:44 Height 5 ft 6 in Weight 135 lb 6 oz BMI 21.8 BP 110/62 Blood Pressure Location Rt brachial Position Sitting Pulse 68 Pulse Source Pulse Oximeter Pulse Oximetry (%) 100 Oxygen Delivery Method Room Air Intake Visit Reasons: Annual Exam Intake Note: Patient is here today for a physical. 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: Not Required per policy Accompanied by: Self / Same As Patient Allergies Quinidine-Quinine Analogues (Cincho Allergy (Verified 10/07/23 10:44) itch Influenza vaccine Adverse Reaction (Severe, Uncoded 10/07/23 10:44) severe flu like symptoms dairy Adverse Reaction (Mild, Uncoded 10/07/23 10:44) Hives Medication List - Last Reconciled 10/07/23 by Esteban Xiong MD meclizine 25 mg PO BID PRN 5 days multivitamin 1 tab PO DAILY Tobacco use date assessed: 10/07/23 Dental Screening Dental Screen Date: 05/31/23 HPI Annual Exam HPI Details 48-year-old female presents to the [facility] e requesting an annual phys ical. The complains of right shoulder, that she had experienced in the past has completely resolved. 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 Josh Beltre, Princess Andersen, Jairo Aparicio and colleagues, with an educational nicolle from [employer]. Physical exam (Primary Care) Vital Signs: Last Vital Signs Pulse 68 10/07/23 10:44 BP 110/62 10/07/23 10:44 Pulse Ox 100 10/07/23 10:44 Oxygen Delivery Method Room Air 10/07/23 10:44 BMI result Body Mass Index 21.8 Tobacco/Smoking Status: Tobacco use Status Tobacco use date assessed 10/07/23 10/07/23 10:56 Patient Tobacco Use Status Never used Tobacco 10/07/23 10:56 e-Cigarette/Vaping Use Never Used 10/07/23 10:56 Thrive Assessment: Date of Thrive Assessment Date Thrive assessed 05/31/23 10/07/23 10:56 Const General: cooperative and healthy appearing Nutritional Appearance: well nourished Orientation/consciousness: patient oriented x3 Limitations: no limitations HENMT Head: Yes normal to inspection Eyes General: appearance normal, both eyes and all related structures Neck Neck: Yes normal visual inspection Chest Chest palpation & inspection: normal palpation of entire chest wall Resp Effort & Inspection: normal respiratory effort Neuro General: patient oriented x3 Assessment and Plan Assessment & Plan (1) Hepatic steatosis: Code(s): K76.0 - Fatty (change of) liver, not elsewhere classified Plan: Repeat liver function tests ordered. (2) Annual physical exam: Code(s): Z00.00 - Encounter for general adult medical examination without abnormal findings Plan: Up-to-date on her mammogram. Orders: Orders Liver Panel Today K76.0 - Fatty (change of) liver, not elsewhere classified Coding Level of Care Code New Pt Prev Care 40-64y(40117) Diagnoses Hepatic steatosis K76.0 Annual physical exam Z00.00
[2023-10-07 10:44] VITALS: BP 110/62; PULSE 68; O2SAT 100; BMI 21.8
== END 2023-10-07 11:48 | disposition home or self-care (01) ==
PROVIDERS: PCP Nurse Practitioner Family; Visit Provider Internal Medicine
DX: Z00.00 Encounter for general adult medical examination without abnormal findings (principal); K76.0 Fatty (change of) liver, not elsewhere classified
CPT/HCPCS: 99396

== ENCOUNTER 2023-10-07 11:56 | Outpatient (REF) | payer OTHER, SELFPAY ==
[2023-10-07 14:06] LABS: Alanine Aminotransferase 29 U/L (0-31); Albumin Level 4.5 g/dL (3.5-5.0); Alkaline Phosphatase 52 U/L (39-117); Aspartate Amino Transferase 17 U/L (5-31); Bilirubin Direct 0.2 mg/dL (0.0-0.5); Bilirubin Total 0.5 mg/dL (0.0-1.0); Total Protein 7.8 g/dL (6.5-8.0)
== END 2023-10-07 11:57 | disposition home or self-care (01) ==
LOC: HO.LAB 11:56
PROVIDERS: PCP Internal Medicine; Visit Provider Internal Medicine
DX: K76.0 Fatty (change of) liver, not elsewhere classified (principal)
CPT/HCPCS: 36415; 80076

== ENCOUNTER 2023-11-30 14:03 | Outpatient (AMB) | payer OTHER, SELFPAY ==
[2023-11-30 14:07] VITALS: BP 112/70; PULSE 88; TEMP 36.6; O2SAT 100
--- NOTE | 2023-11-30 14:07 | AM.OFFWIN_ITS ---
Intake Vital Signs 11/30/23 14:07 Height 5 ft 6 in BP 112/70 Blood Pressure Location Rt brachial Position Sitting Pulse 88 Pulse Source Pulse Oximeter Temp 97.9 F Temp Source Oral Pulse Oximetry (%) 100 Intake Visit Reasons: EP Rt face swelling Intake Note: pt is here for right face swelling with tingling and bilateral feet painful and itchiness Patient Tobacco Use Status: Never used Tobacco Allergies Quinidine-Quinine Analogues (Cincho Allergy (Verified 11/30/23 14:16) itch Influenza vaccine Adverse Reaction (Severe, Uncoded 10/07/23 10:44) severe flu like symptoms dairy Adverse Reaction (Mild, Uncoded 10/07/23 10:44) Hives Do you need a note to return to daycare/school/sports/work: No HPI HPI Comments History of Present Illness Details This is a 48-year-old female with no stated past medical history presenting for evaluation of tingling on the right side of her face and pain on the plantar surfaces of her feet when walking for the past 3 days. Patient also reports an itching sensation on the bottom of her feet for which she used Vaseline topically. Patient denies having any fevers, chills, neck pain, ankle pain, knee pain or any recent injury or trauma. 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 Cognitive needs: No Hearing needs: No Vision needs: Yes (glasses) Review of Systems Const All systems reviewed & are unremarkable except as noted in HPI and below Denies chills, Denies fever(s) and Denies malaise Eyes Reports no additional complaints ENT Reports no additional complaints Card Reports no additional complaints Resp Reports no additional complaints GI Reports no additional complaints Musc Details: pain plantar surface of feet bilaterally when ambulating Reports no additional complaints and Reports tingling (right side of face) Skin/Breast Reports system reviewed and no additional complaints, except as documented Neuro Reports tingling (right side of face) Psych Reports no additional complaints Endo Reports no additional complaints Natalio/Lymph Reports no additional complaints Physical Exam Const General: cooperative, healthy appearing, comfortable, no acute distress, well developed, alert, awake and Physically active Nutritional Appearance: average body habitus Orientation/consciousness: patient oriented x3 Limitations: no limitations HEENT Head: Yes normal to inspection, Yes normocephalic, Yes atraumatic and No abrasion Ears: external ears normal General nose exam: Normal external nose present Face and sinus: Yes normal facial exam Eyes General: appearance normal, both eyes and all related structures Neck Neck: Yes normal visual inspection, Yes full ROM, Yes no lymphadenopathy and Yes no meningeal signs Back/Spine/Pelvis Cervical Spine: normal cervical lordosis, cervical ROM normal, cervical muscular tenderness (right > left) and No pain with cervical ROM Skin General skin exam: no rashes or lesions noted Neuro General: patient oriented x3 and no meningeal signs Cranial nerves: Yes CN's II-XII intact bilaterally Cognition (Neuro): normal cognition Gait exam (Neuro): Normal gait present Motor exam (neuro): 5/5 motor strength present throughout Extrem Other: There is no tenderness to the plantar surface of the feet bilaterally, no cutaneous lesions noted. Right lower extremity: foot Details: normal to inspection; no tenderness Left lower extremity: foot Details: normal to inspection; no tenderness Assessment & Plan Assessment & Plan (1) Foot pain, bilateral: Comment: There is no pain elicited on examination however given this patient's past medical history patient will be prescribed Naprosyn for a presumed plantar fasciitis. Code(s): M79.671 - Pain in right foot; M79.672 - Pain in left foot Plan: Naprosyn 500 mg b.i.d. times 7-10 days. (2) Cervical radiculitis: Code(s): M54.12 - Radiculopathy, cervical region Plan: Naprosyn 500 mg b.i.d. times 7-10 days. Medications: New naproxen (Naprosyn) 500 mg PO BID 20 tabs 0RF Coding Level of Care Code Est Pt Level 3 (54420) Diagnoses Foot pain, bilateral M79.671; M79.672 Cervical radiculitis M54.12 Time Spent (min) 20
== END 2023-11-30 14:40 | disposition home or self-care (01) ==
PROVIDERS: PCP Internal Medicine; Visit Provider Physician Assistant
DX: M79.671 Pain in right foot (principal); M79.672 Pain in left foot; M54.12 Radiculopathy, cervical region
CPT/HCPCS: 99213

== ENCOUNTER 2024-01-06 08:02 | Outpatient (AMB) | payer OTHER, SELFPAY ==
[2024-01-06 08:04] VITALS: BP 100/64; PULSE 64; O2SAT 97; BMI 22.1
--- NOTE | 2024-01-06 08:04 | A.OFFPC_ITS ---
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 Patient has been complaining of intermittent pain in both her knees, legs and feet. It started about a month ago. She was seen at the walk-in clinic initially and was prescribed anti-inflammatory. After reading the side effects, patient preferred not to take the medication. Symptoms get better and then recur. She spends a lot of time on her legs standing, both at work and at home as she has many small children. Able to walk with no difficulty. Occasionally has pins and needle sensation in her legs. 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 How often do you have a drink containing alcohol?: Never Total Score: 0 SOURAV-7 AMB Questionnaire SOURAV-7 Date SOURAV - 7 assessed: 05/31/23 Source: Developed by Drs. Josh Beltre, Princess Andersen, Jairo Aparicio and colleagues, with an educational nicolle from [employer]. Physical exam (Primary Care) Vital Signs: Last Vital Signs Pulse 64 01/06/24 08:04 BP 100/64 01/06/24 08:04 Pulse Ox 97 01/06/24 08:04 Oxygen Delivery Method Room Air 01/06/24 08:04 BMI result Body Mass Index 22.1 Tobacco/Smoking Status: Tobacco use Status Tobacco use date assessed 10/07/23 01/06/24 08:05 Patient Tobacco Use Status Never used Tobacco 01/06/24 08:05 e-Cigarette/Vaping Use Never Used 01/06/24 08:05 Thrive Assessment: Date of Thrive Assessment Date Thrive assessed 05/31/23 01/06/24 08:05 Extrem Other: Right and left leg: Full internal and external rotation. Knee: No swelling, no joint line tenderness. FROM. Feet: Bilateral: no painful points, no rash Assessment and Plan Assessment & Plan (1) Foot pain, bilateral: Code(s): M79.671 - Pain in right foot; M79.672 - Pain in left foot Plan: Reassurance. Patient was advised to use a small stepping stool while standing. This will relieve the leg. No NSAIDS needed. Coding Level of Care Code Est Pt Level 3 (81892) Complex EM visit Add On G2211 Diagnoses Foot pain, bilateral M79.671; M79.672
== END 2024-01-06 08:33 | disposition home or self-care (01) ==
PROVIDERS: PCP Internal Medicine; Visit Provider Internal Medicine
DX: M79.671 Pain in right foot (principal); M79.672 Pain in left foot
CPT/HCPCS: 99213; G2211

== ENCOUNTER 2024-02-10 13:00 | Outpatient (REF) | payer OTHER, SELFPAY ==
[2024-02-10 17:55] LABS: Influenza A PCR NEGATIVE (Negative); Influenza B PCR NEGATIVE (Negative); Resp Syncy Virus RNA Qual PCR NEGATIVE (Negative); SARS COV2 PCR INHOUSE NEGATIVE (Negative)
== END 2024-02-10 13:01 | disposition home or self-care (01) ==
LOC: HO.HMGCLNP 13:00
PROVIDERS: PCP Internal Medicine; Visit Provider Nurse Practitioner Family
DX: R52 Pain, unspecified (principal); J06.9 Acute upper respiratory infection, unspecified; Z13.9 Encounter for screening, unspecified
CPT/HCPCS: 0241U; 81003; 99212

== ENCOUNTER 2024-02-10 13:00 | Outpatient (AMB) | payer OTHER, SELFPAY ==
--- NOTE | 2024-02-10 13:27 | MHC.OFFWIV ---
Intake Vital Signs 02/10/24 13:28 Height 5 ft 6 in Weight 140 lb BMI 22.6 BP 108/70 Blood Pressure Location Rt brachial Position Sitting Pulse 77 Pulse Source Pulse Oximeter Temp 98 F Temp Source Oral Pulse Oximetry (%) 100 Oxygen Delivery Method Room Air Intake Visit Reasons: EP Dizzy, pain in stomach/back Intake Note: PAtient here because on wednesday she was dizzy and not feeling well. Patient Tobacco Use Status: Never used Tobacco Allergies Quinidine-Quinine Analogues (Cincho Allergy (Verified 01/06/24 08:36) itch Influenza vaccine Adverse Reaction (Severe, Uncoded 01/06/24 08:36) severe flu like symptoms dairy Adverse Reaction (Mild, Uncoded 01/06/24 08:36) Hives HPI EP Dizzy, pain in stomach/back HPI Details This is a 48-year-old female patient who presents to the walk-in clinic today with report of intermittent dizziness this past Wednesday. She states that she had attributed it to drinking caffeine, which she does not usually have. She increased her water intake, and dizziness resolved. On Wednesday, she had a headache, and Wednesday, she felt as if she had body chills. She has been feeling somewhat better, however today she started to have body aches and some lower back pain. No inciting events. No known exposure to sick contacts. Denies any dysuria. Having some urinary frequency, however states that she has been increasing her water intake significantly. Denies any fever or chills. 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 Cognitive needs: No Hearing needs: No Vision needs: Yes (glasses) Review of Systems Const All systems reviewed & are unremarkable except as noted in HPI and below Physical Exam Vital Signs: Last Vital Signs Temp 98 F 02/10/24 13:28 Pulse 77 02/10/24 13:28 BP 108/70 02/10/24 13:28 Pulse Ox 100 02/10/24 13:28 Oxygen Delivery Method Room Air 02/10/24 13:28 BMI result Body Mass Index 22.6 Const General: cooperative, healthy appearing, comfortable and no acute distress Nutritional Appearance: average body habitus HEENT Head: Yes normal to inspection and Yes normocephalic Ears: hearing grossly normal bilaterally and TM's normal bilaterally General nose exam: Normal external nose present Face and sinus: Yes normal facial exam Neck Neck: Yes no lymphadenopathy Resp Effort & Inspection: normal respiratory effort Auscultation: clear to auscultation bilaterally Cardio Rate: regular rate Rhythm: regular rhythm GI Palpation (GI): Soft to palpation and No hepatosplenomegaly present General: Yes bladder normal to palpation and Yes no CVA tenderness Bimanual exam- vagina & uterus: bladder normal to palpation Back/Spine/Pelvis Back: no CVA tenderness Skin General skin exam: no rashes or lesions noted Neuro General: no focal motor deficits Extrem General: Yes capillary refill normal and Yes no clubbing, cyanosis or edema Psych Appearance: grossly normal Mental Status: mental status grossly normal Speech and movement: Normal speech and movement present Results AMB Urinalysis, Automated UA Leukoctes 0 Helio/uL Last Edit by Roel Liu CCM on 02/10/24 13:52 UA Nitrite Negative Last Edit by Roel Liu CCM on 02/10/24 13:52 UA Urobilinogen 0.2 mg/dL Last Edit by Roel Liu [facility] on 02/10/24 13:52 UA Protein 0 mg/dL Last Edit by Roel Liu CCM on 02/10/24 13:52 UA pH 7.0 Last Edit by Roel Liu CCM on 02/10/24 13:52 UA Blood 0 Pan/uL Last Edit by Roel Liu CCM on 02/10/24 13:52 UA Specific [place] 1.005 Last Edit by Roel Liu CCM on 02/10/24 13:52 UA Ketone Negative Last Edit by BARRY Elaine on 02/10/24 13:52 UA Bilirubin 0 mg/dL Last Edit by BARRY Elaine on 02/10/24 13:52 UA Glucose 0 mg/dL Last Edit by BARRY Elaine on 02/10/24 13:52 Assessment & Plan Assessment & Plan (1) Body aches: Code(s): R52 - Pain, unspecified Plan: Urine dip was negative. Having intermittent symptoms over the last several days consistent with viral illness, including headache, chills, body aches. COVID/flu/RSV swab was obtained, and patient aware she will be notified of results once these are available. Advised ongoing conservative measures, including rest, increased hydration, healthy food/vitamin intake, Tylenol p.r.n.. We reviewed indications to return to clinic or go to Emergency Department, including recurrence of dizziness, worsening symptoms, fever/chills, UTI symptoms. Patient verbalizes understanding and agrees to plan. Orders: Orders SARS-CoV2/FLU/RSV Today J06.9 - Acute upper respiratory infection, unspecified AMB Urinalysis Automated Today Z13.9 - Encounter for screening, unspecified Coding Level of Care Code Est Pt Level 4 (26415) Diagnoses Body aches R52
[2024-02-10 13:28] VITALS: BP 108/70; PULSE 77; TEMP 36.6; O2SAT 100; BMI 22.6
== END 2024-02-10 14:03 | disposition home or self-care (01) ==
PROVIDERS: PCP Internal Medicine; Visit Provider Nurse Practitioner Family
DX: Z13.9 Encounter for screening, unspecified (principal); R52 Pain, unspecified

== ENCOUNTER 2024-04-20 09:50 | Outpatient (REF) | payer OTHER, SELFPAY ==
--- NOTE | ~2024-04-20 | XR_ITS ---
EXAMINATION: XR LUMBOSACRAL SPINE CLINICAL INFORMATION: Cervicalgia M54.2. COMPARISON: XR KUB 05/20/2020. TECHNIQUE: 3 views of the lumbosacral spine. FINDINGS: Surgical clips in the right upper quadrant. Moderate degenerative changes in the bilateral sacroiliac joints. Facet arthritis in the lower spine. Mild multilevel lumbar spondylosis. Lumbar disc space heights are preserved. XR/XR lumbar spine 2-3V IMPRESSION: 1. Facet arthritis lower lumbar spine. 2. Mild multilevel lumbar spondylosis. Electronically signed by: Meredith Caldera MD 05/31/2024 11:38 AM DARIEN
--- NOTE | ~2024-04-20 | XR_ITS ---
EXAMINATION: XR CERVICAL SPINE CLINICAL INFORMATION: Cervicalgia M54.2. COMPARISON: XR Cervical spine 01/01/2023 TECHNIQUE: 5 views of the cervical spine were obtained. FINDINGS: Bone mineralization is normal. Moderate degenerative changes with hypertrophic change and loss of disc space height at C5-C6. Alignment maintained. XR/XR cervical spine 3V IMPRESSION: Moderate degenerative changes at C5-C6. Electronically signed by: Meredith Caldera MD 05/31/2024 01:29 PM DARIEN
== END 2024-04-20 09:51 | disposition home or self-care (01) ==
LOC: HO.XRAY 09:50
PROVIDERS: PCP Internal Medicine; Visit Provider Internal Medicine
DX: S16.1XXA Strain of muscle, fascia and tendon at neck level, initial encounter (principal); R20.2 Paresthesia of skin; M54.50 Low back pain, unspecified; X58.XXXA Exposure to other specified factors, initial encounter; Y93.9 Activity, unspecified; Y92.9 Unspecified place or not applicable; Y99.9 Unspecified external cause status
CPT/HCPCS: 72040; 72100; 83036; 99212

== ENCOUNTER 2024-04-20 09:50 | Outpatient (AMB) | payer OTHER, SELFPAY ==
--- NOTE | 2024-04-20 10:11 | A.OFFPC_ITS ---
Vital Signs 04/20/24 10:13 Height 5 ft 6 in Weight 140 lb 8 oz BMI 22.7 BP 108/70 Blood Pressure Location Rt brachial Position Sitting Pulse 65 Pulse Source Pulse Oximeter Pulse Oximetry (%) 99 Oxygen Delivery Method Room Air Intake Visit Reasons: 6mof\u Intake Note: Patient is here to follow up on Chronic headaches, Vit D deficiency,Cervical radiculitis. Complaint of pins and needle in bottom of both foot, back pain from the neck radiates down to lower back on going for a week. Pt decline flu shot. 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 Manager Acute: Not Required per policy Accompanied by: Self / Same As Patient Allergies Quinidine-Quinine Analogues (Cincho Allergy (Verified 04/20/24 10:13) itch Influenza vaccine Adverse Reaction (Severe, Uncoded 04/20/24 10:13) severe flu like symptoms dairy Adverse Reaction (Mild, Uncoded 04/20/24 10:13) Hives Tobacco use date assessed: 04/20/24 Dental Screening Dental Screen Date: 05/31/23 [facility] Medical History Occipital neuralgia Gestational diabetes ARCHIBALD (headache) History of palpitations Surgical History History of myomectomy History of colonoscopy History of cholecystectomy History of delivery Social History Housing: House Alcohol intake: never Patient Tobacco Use Status: Never used Tobacco e-Cigarette/Vaping Use: Never Used Second Hand Smoke Exposure: No service: No Current occupational status: employed 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 Josh Beltre, Princess Andersen, Jairo Aparicio and colleagues, with an educational nicolle from [employer]. Physical exam (Primary Care) Vital Signs: Last Vital Signs Pulse 65 04/20/24 10:13 BP 108/70 04/20/24 10:13 Pulse Ox 99 04/20/24 10:13 Oxygen Delivery Method Room Air 04/20/24 10:13 BMI result Body Mass Index 22.7 Tobacco/Smoking Status: Tobacco use Status Tobacco use date assessed 04/20/24 04/20/24 10:29 Patient Tobacco Use Status Never used Tobacco 04/20/24 10:11 e-Cigarette/Vaping Use Never Used 04/20/24 10:11 Thrive Assessment: Date of Thrive Assessment Date Thrive assessed 05/31/23 04/20/24 10:11 Results AMB Hemoglobin A1c AMB Hemoglobin A1c 5.6 % Last Edit by MARGY Law on 04/20/24 11:00 Results Reviewed Results Reviewed: Laboratory Last Values Hgb A1c (Clinic) 5.6 % (4.0-6.0) 04/20/24 10:53 Coding Level of Care Code Est Pt Level 4 (36543) Diagnoses Neck strain S16.1XXA Paresthesia R20.2 Low back pain M54.50 Assessment & Plan Assessment & Plan (1) Neck strain: Code(s): S16.1XXA - Strain of muscle, fascia and tendon at neck level, initial encounter Category: Medical Plan: X-ray of the spine ordered. Patient is declining physical therapy. (2) Paresthesia: Code(s): R20.2 - Paresthesia of skin Plan: A1c is in range. (3) Low back pain: Code(s): M54.50 - Low back pain, unspecified Plan: X-rays ordered. Patient declined physical therapy Plan History of Present Illness The patient is a 48-year-old female presenting with musculoskeletal pain. She reports persistent pain under her feet, described as feeling like noodles, and severe pain radiating from her back to her neck. The symptoms appeared in the last week, and she noted that sitting on a stool previously provided some relief, but the pain has since returned. 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 The patient has not engaged in regular stretching or exercise in recent months due to her commitments to online classes. Her pain has been significant enough that she took a day to rest without activities. Additionally, the patient experiences light, frequent sleep disturbances, waking as early as 2-3 AM, often prompted by her children's activities during the night. She also expressed concern about the possibility of having diabetes, but prior blood tests showed no diabetes diagnosis. Social History - Employment: Physically demanding job involving patient lifting. - Family status: Has children aged 13, 11, and 9, all of whom can cause nighttime disturbances. - Exercise: Previously engaged in physical activity, but has reduced exercise due to online classes. Review of Systems - Musculoskeletal: Reports severe pain from the back to the neck, and foot pain. - Neurological: Reports light sleep with frequent awakenings. - Endocrine: Denies experiencing diabetes symptoms. Physical Exam General: Appearance normal, both eyes and all related structures Nutritional Appearance: Well nourished Orientation/consciousness: Patient oriented x3 Limitations: No limitations Head: Normal to inspection Neck: Normal visual inspection Chest: Normal palpation of entire chest wall Respiratory: Normal respiratory effort Neurology: Patient oriented x3, but reports strong pain in the back from the width to the neck and pain under the feet. Results Plan - Musculoskeletal Pain: Arrange for an X-ray of the back to investigate underlying causes. Emphasizing the importance of daily stretching and back- strengthening exercises. Prescribe pain medication and a muscle relaxant to manage symptoms. - Sleep Disturbance: Patient advised against using sleep-inducing medications due to reluctance. - Concerns About Diabetes: Confirmatory blood tests to reassure absence of diabetes. Patient was informed and verbally consented to the use of an ambient scribe for clinic note documentation during this visit. Discussion Notes I discussed the probable musculoskeletal nature of the patient?s symptoms and emphasized the importance of strengthening exercises for long-term relief. We reviewed the benefits of daily stretching and the minimal risks associated with prescribed pain management medications. I reassured the patient about her concerns regarding diabetes, emphasizing that previous blood tests did not indicate diabetes. I offered a confirmatory test to provide assurance. We agreed that physical therapy could be an option in the future should the symptoms persist or worsen. Patient Instructions - Engage in daily stretching exercises for back strengthening. - Use a heating pad for muscle relaxation. - Take prescribed pain medication and muscle relaxant as recommended. - Return for follow-up if symptoms persist or worsen. - Confirmatory blood test for diabetes reassurance will be conducted. Orders: Orders AMB Hemoglobin A1c Today Z13.9 - Encounter for screening, unspecified
[2024-04-20 10:13] VITALS: BP 108/70; PULSE 65; O2SAT 99; BMI 22.7
== END 2024-04-20 11:10 | disposition home or self-care (01) ==
PROVIDERS: PCP Internal Medicine; Visit Provider Internal Medicine
DX: S16.1XXA Strain of muscle, fascia and tendon at neck level, initial encounter (principal); R20.2 Paresthesia of skin; M54.50 Low back pain, unspecified; Z13.9 Encounter for screening, unspecified

== ENCOUNTER 2024-08-25 09:23 | Outpatient (AMB) | payer OTHER, SELFPAY ==
[2024-08-25 09:24] VITALS: BMI 23.4
--- NOTE | 2024-08-25 09:24 | A.OFFVIS_ITS ---
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 She states she is now having pain in her whole back and neck. Patient was recently seen by her PCP where x-rays were ordered and referred to physiatry due to recent imaging. States pain makes it difficult to move her neck. She has numbness and tingling in her back and neck. No other treatment. She does not l emiliana to take OTC pain medications, states she prefers natural remedies. Allergies Quinidine-Quinine Analogues (Cincho Allergy (Verified 08/25/24 09:27) itch Influenza vaccine Adverse Reaction (Severe, Uncoded 08/25/24 09:27) severe flu like symptoms dairy Adverse Reaction (Mild, Uncoded 08/25/24 09:27) Hives Medication List - Last Reconciled 08/25/24 by Jaclyn Sánchez MD ferrous sulfate (Feosol) 325 mg PO DAILY meclizine 25 mg PO BID PRN 5 days multivitamin 1 tab PO DAILY HPI Comments Details: Initially treated for right shoulder pain, back in 2020. She continues to have neck pain since then. Posterior neck pain, with difficulty moving neck laterally, comes/goes. Pulling sensation with heavy lifting. Radiates to both arms. Occasional numbness when she carries heavy, but not night time. Also get posterior headaches. Denies weakness, bladder/bowel changes. Haven't started PT - she was called by [id number] but did not schedule yet. 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 Patient was appropriately conversant and oriented. Good historian. MSK: Inspection reveals appropriate head and neck positioning. There is some tenderness over cervical paraspinals and trapezius. Cervical ROM was full. Spurling's sign negative. Bilateral shoulder, elbow and wrist ROM WNL. No ligamentous laxity or crepitance. No increased effusion. No specific abnormalities or instability found on inspection and palpation of the spine and extremities. Strength is 5/5 in all muscle groups tested. No increased tone noted. Neurological: Mood appears normal, good affect, and appropriate for the circumstances. Neurologic examination of the upper and lower extremities was nonfocal with intact sensation, muscle stretch reflexes and without focal motor deficits. Bardales?s negative bilaterally. Gait is non-antalgic without loss of balance. Results Reviewed Results Reviewed: I independently reviewed the results of the following: Cervical x-ray shows very mild decreased space C5-6, with anterior endplate spurs. Ordering Physician: Esteban Xiong MD Date of Service: 04/20/24 Procedure(s): XR cervical spine 3V Accession Number(s): [id number] cc: Esteban Xiong MD~ EXAMINATION: XR CERVICAL SPINE CLINICAL INFORMATION: Cervicalgia M54.2. COMPARISON: XR Cervical spine 01/01/2023 TECHNIQUE: 5 views of the cervical spine were obtained. FINDINGS: Bone mineralization is normal. Moderate degenerative changes with hypertrophic change and loss of disc space height at C5-C6. Alignment maintained. I reviewed records from the following: PCP, ortho Assessment & Plan Assessment & Plan (1) Cervical spondylosis: Code(s): M47.812 - Spondylosis without myelopathy or radiculopathy, cervical region Category: Medical (2) Cervicogenic headache: Code(s): G44.86 - Cervicogenic headache Category: Medical (3) Myofascial pain: Code(s): M79.18 - Myalgia, other site Category: Medical Plan Patient getting cervicogenic headache and myofascial pain, with underlying cervical spondylosis. No signs of cervical radiculopathy or myelopathy. Agree with referral to physical therapy, advised patient to contact PT and schedule. If she needs a new order, she may contact our department. She verbalized understanding for need of continued exercises at home in between physical therapy sessions. Assessment and plan discussed with patient, and patient was agreeable. All questions were answered thoroughly. Follow up 3 months. Jaclyn Sánchez MD, CED Board Certified, [place] Board [employer] and Rehabilitation (ABPMR) Board Certified, [place] Board of Electrodiagnostic Medicine (ABEM) Coding Level of Care Code New Pt Level 4 (49263) Diagnoses Cervical spondylosis M47.812 Cervicogenic headache G44.86 Myofascial pain M79.18
--- OUTSIDE RECORDS SUMMARY | 2024-08-25 09:46 | XMS_ITS | Clinical Summary ---
Author Organization [address] Address [address] [place] [address] Phone Care Team Providers Care Rotary Surface Grinder Name Role Phone Rupinder Huerta MD Primary Care Provider + Encounters Date Type Department Care Team Description 08/14/2024 Lab Requisition [facility] Lab [address] [place] [phone] Rupinder Huerta MD Encounter for gynecological examination (general) (routine) without abnormal findings 07/27/2024 Lab Requisition [facility] Lab [address] [place] [phone] Rupinder Huerta MD Encounter for screening for infections with a predominantly sexual mode of transmission; Renal tubulo-interstitial disorders in diseases classified elsewhere; Urinary tract infection, site not specified from Last 3 Months Social History Tobacco Use Types Packs/Day Years Used Date Smoking Tobacco: Never Assessed Comments Unknown Sex and Gender Information Value Date Recorded Sex Assigned at Not on file Legal Sex Female 8:28 PM EST Gender Identity Not on file Sexual Orientation Not on file Plan of Treatment Health Maintenance Due Date Last Done Comments Breast Cancer Screening 1975 DTaP,Tdap,and Td Vaccines (1 - Tdap) 1994 Hepatitis B Vaccines (1 of 3 - 19+ 3-dose series) 1994 Colorectal Cancer Screening: Colonoscopy 06/11/2023 Depression Screening 06/11/2023 HIV Screening 06/11/2023 Hepatitis C Screening 06/11/2023 Social Influencers of Health Screening 06/11/2023 COVID-19 Vaccine (2023-2 5 season) 2024 Influenza Vaccine (Season Ended) 2025 Cervical Cancer Screening: P ap Smear 08/12/2027 08/11/2024 HIB Vaccines Aged Out No longer eligi ble based on patient's age to complete this topic HPV Vaccines Aged Out No longer eligi ble based on patient's age to complete this topic Hepatitis A Vaccines Aged Out No long er eligible based on patient's age to complete this topic IPV Vaccines Aged Out No longer eligi ble based on patient's age to complete this topic MMR Vaccines Aged Out No longer eligi ble based on patient's age to complete this topic Meningococcal ACWY Vaccine Aged Out N o longer eligible based on patient's age to complete this topic Meningococcal B Vaccine Aged Out No l onger eligible based on patient's age to complete this topic Pneumococcal Vaccine: Pediat rics (0 to 5 Years) and At-Risk Patients (6 to 64 Years) Aged Out No longer eligi ble based on patient's age to complete this topic RSV Immunization Patients Un karrie 20 months Aged Out No longer eligible b ased on patient's age to complete this topic Varicella Vaccines Aged Out No longer eligible based on patient's age to complete this topic Procedures Procedure Name Priority Date/Time Associated Diagnosis Comments PAP SMEAR Routine 08/11/2024 12:00 AM EDT Encounter for gynecological examination (general) (routine) without abnormal findings URINALYSIS WITH REFLEX MICROSCOPIC Routine 07/27/2024 12:00 AM EDT Encounter for screening for infections with a predominantly sexual mode of transmission Renal tubulo-interstitial disorders in diseases classified elsewhere Urinary tract infection, site not specified URINALYSIS WITH REFLEX MICROSCOPIC Routine 07/27/2024 12:00 AM EDT Encounter for screening for infections with a predominantly sexual mode of transmission Renal tubulo-interstitial disorders in diseases classified elsewhere Urinary tract infection, site not specified CULTURE URINE Routine 07/27/2024 12:00 AM EDT Encounter for screening for infections with a predominantly sexual mode of transmission Renal tubulo-interstitial disorders in diseases classified elsewhere Urinary tract infection, site not specified VAGINITIS PATHOGENS BY PCR Routine 07/27/2024 12:00 AM EDT Encounter for screening for infections with a predominantly sexual mode of transmission Renal tubulo-interstitial disorders in diseases classified elsewhere Urinary tract infection, site not specified CHLAMYDIA TRACHOMATIS AND NEISSERIA GONORRHOEAE PCR Routine 07/27/2024 12:00 AM EDT Encounter for screening for infections with a predominantly sexual mode of transmission Renal tubulo-interstitial disorders in diseases classified elsewhere Urinary tract infection, site not specified from Last 3 Months Results * Pap smear (08/11/2024 12:00 AM EDT) Interpretation Negative for intraepithelial lesion or malignancy 08/15/2024 8:[address] [facility] General Categorization Negative 08/15/2024 8:[address] [facility] Specimen Adequacy Satisfactory for evaluation 08/15/2024 8:[address] [facility] Pap Methodology Liquid Based Pap Test 08/15/2024 8:[address] [facility] Disclaimer The Pap test is a screening test which carries an inherent false negative rate. These test results should be correlated with the patient's clinical findings and history. This Pap test was processed using an automated screening system. Technical cytopathology services provided by [facility], at [address] [place] [address] (CLIA # [id number]/Kelsey Jarvis MD, Expander Machine Operator.) 08/15/2024 8:[address] [facility] Console Pap Interpretation Reported 08/15/2024 8:[address] [facility] Brushing/Spatula Vaginal structure / Unknown 08/11/2024 08/14/2024 6:21 AM EDT us Rupinder Huerta MD LAB CYTOLOGY ORDERABLES Final Result [facility] [address] [place] [address], [place] [phone] * Urinalysis with reflex microscopic (07/27/2024 12:00 AM EDT) Specific [place] Urine 1.006 1.003 - 1.030 LAB URINALYSIS - AUTOMATED METHOD 07/27/2024 7:14 PM [facility] pH, Urine 8.0 5.0 - 8.0 pH LAB URINALYSIS - AUTOMATED METHOD 07/27/2024 7:14 PM [facility] Leukocytes, Urine Negative Negative LAB URINALYSIS - AUTOMATED METHOD 07/27/2024 7:14 PM [facility] Nitrite, Urine Negative Negative LAB URINALYSIS - AUTOMATED METHOD 07/27/2024 7:14 PM [facility] Protein, Urine Negative <=Trace mg/dL LAB URINALYSIS - AUTOMATED METHOD 07/27/2024 7:14 PM [facility] Glucose, Urine Negative Negative mg/dL LAB URINALYSIS - AUTOMATED METHOD 07/27/2024 7:14 PM [facility] Ketones, Urine Negative Negative mg/dL LAB URINALYSIS - AUTOMATED METHOD 07/27/2024 7:14 PM [facility] Urobilinogen, Urine 0.2 0.2 - 1.0 mg/dL LAB URINALYSIS - AUTOMATED METHOD 07/27/2024 7:14 PM [facility] Bilirubin, Urine Negative Negative LAB URINALYSIS - AUTOMATED METHOD 07/27/2024 7:14 PM [facility] Blood, Urine Negative Negative LAB URINALYSIS - AUTOMATED METHOD 07/27/2024 7:14 PM [facility] Urine Urine specimen obtained by clean catch procedure / Unknown 07/27/2024 07/27/2024 6:04 PM EDT us Rupinder Huerta MD LAB URINE ORDERABLES Fin al Result Performing Organization Address [facility]/ZIP Co de Phone Number [facility] [address] [place] [address], [place] [phone] * Vaginitis pathogens molecular study (07/27/2024 12:00 AM EDT) Trichomonas vaginalis Negative Negative 07/28/2024 11:[address] [facility] Gardnerella vaginalis Negative Negative 07/28/2024 11:[address] [facility] Dory Species Negative Negative 11:[address] [facility] Swab Vaginal structure / Unknown 07/27/2024 07/27/2024 6:04 PM EDT Rupinder Huerta MD LAB MICROBIOLOGY - GENER AL ORDERABLES Final Result Performing Organization Address [facility]/ZIP Co de Phone Number [facility] [address] [place] [address], [place] [phone] * Chlamydia trachomatis and Neisseria gonorrhoeae molecular study (07/27/2024 12:00 AM EDT) Neisseria gonorrhoeae PCR Negative Negative LAB MOLECULAR DIAGNOSTICS METHOD 07/28/2024 10:[address] [facility] Chlamydia trachomatis PCR Negative Negative LAB MOLECULAR DIAGNOSTICS METHOD 07/28/2024 10:[address] [facility] Swab Cervix uteri structure / Unknown 07/27/2024 07/27/2024 6:04 PM EDT us Rupinder Huerta MD LAB MICROBIOLOGY - GENER AL ORDERABLES Final Result Performing Organization Address City/[facility]/ZIP Co de Phone Number [facility] [address] [place] [address], [place] [phone] * Culture urine (07/27/2024 12:00 AM EDT) Culture, Urine No growth 07/28/2024 2:[address] [facility] Urine Urine specimen obtained by clean catch procedure / Unknown 07/27/2024 07/27/2024 6:04 PM EDT us Rupinder Huerta MD LAB MICROBIOLOGY - GENER AL ORDERABLES Final Result [facility] [address] [place] [address], from Last 3 Months Insurance [facility] [employer] PL[employer] MEDICA[place] - [place] Care Teams Rotary Surface Grinder Relationship Specialty Start Date End Date Rupinder Huerta MD [address] [phone] PCP - General Obstetrics and Gynecology 07/27/24
--- OUTSIDE RECORDS SUMMARY | 2024-08-25 09:46 | XMS_ITS | Data Portability ---
Author Organization [facility] [employer] [id number] Address [address] [place] [address] Care Team Providers Care Rv Service Technician Name Role Phone VU ROSADO Industrial Property Appraiser Assessment No assessment recorded. Plan of Treatment Reminders Order Date Submit Date Provider Last Modified By Organization Details Last Modified Time Details Appointments None record ed. Lab None record ed. Referral None record ed. Procedures None record ed. Surgeries None record ed. Imaging XR, chest, 1 view 023 07/11/19 [email or web address] [facility], [address] [place], [address], 10:38:32 Medication Orders None record ed. Patient TargetsNo targets recorded. Patient InstructionsNo instructions recorded. Reason for Referral None Reported. Results Created Date Observation Date Name Description Value Unit Range Abnormal Flag Note LastModifiedBy Organization Detail LastModifiedTime 07/11/19 23 07/11/2022 XR, chest , 1 view No observ ation record ed. [email or web address] [facility] [address] [place], [address], 07/11/2022 10:43:10 Result Notes None recorded. Procedures Surgical History Date Name Laterality Status Provider Name and Address Organization Details Recorded Time 07/11/2022 OC-Other completed TODD Bonilla [facility] 07/11/2022 09:53:41 Imaging Results Imaging Date Name Status LastModified by Organiz ation Details LastModified Time 07/11/2022 XR, chest, 1 view completed [email or web address] [address] [place], [address], 07/11/2022 10:43:10 Procedure Notes None recorded. Medical Equipment None Reported. Medications Name Sig Start Date Stop Date Status Note LastModified by Organization Details LastModified Time cyclobenzapr ine 10 mg tablet TAKE 1 TABLET BY MOUTH EVERY DAY AT BEDTIME active Not Available Not Available No t Available amoxicillin 500 mg capsule TAKE 1 CAPSULE BY MOUTH THREE TIMES A DAY active Not Available Not Available Not Available meloxicam 15 mg tablet TAKE 1 TABLET BY MOUTH DAILY active Not Available Not Available Not Available meclizine 12.5 mg tablet TAKE 1 TABLET BY MOUTH DAILY FOR DIZZINESS active Not Available Not Available No t Available cephalexin 500 mg capsule TAKE 1 CAPSULES3 TIMES PER DAY FOR 7 DAYS WITH FOOD FOR INFECTION active Not Available Not Available No t Available ibuprofen 600 mg tablet TAKE ONE TABLET ONE HOUR PRIOR TO DENTAL APPOINTMENT AND ONE TABLET EVERY 6 HOURS FOR PAIN. active Not Available Not Available No t Available Laxative (bisacodyl) 5 mg tablet,delay ed release TAKE 2 TABLETS BY MOUTH AT 12PM THE DAY BEFORE YOUR PROCEDURE active Not Available Not Available No t Available chlorhexidin e gluconate 0.12 % mouthwash RINSE MOUTH WITH 15ML (1 CAPFUL) FOR 30 SECONDS IN MORNING AND EVENING AFTER BRUSHING, THEN SPIT active Not Available Not Available No t Available Gavilax 17 gram/dose oral powder TAKE DIRECTED BY MOUTH THE DAY BEFORE YOUR PROCEDURE. active Not Available Not Available N ot Available Vitals None Recorded Social History None recorded. Functional Status None recorded. Mental Status None recorded. Family History Nothing Reported. Medical History No medical history recorded. Gynecological HistoryNo gynecological history recorded. Obstetrics History GPAL:G 0 P 0 0 0 0 Past Encounters Encounter ID Performer Location Encounter Start Date Encounter Closed Date Diagnosis/Indication Diagnosis SNOMED-CT Code Diagnosis ICD10 Code Diagnosis Note [id number] [address] [address] 08/09/2018 10:34:52 08/09/2018 12:19:38 [id number] [address] [facility] [address] [place] [address] 05/27/2020 17:15:05 05/27/2020 18:41:36 [id number] [place] [address] [facility] [address] [place] [address] 07/11/2022 08:57:25 07/11/2022 10:38:31 Tuberculosis screening [id number] Z11.1 Health Concerns Section Related Observation LastModified by Organization Detai ls LastModified Time None Recorded Concern Status LastModified by Organization Details LastModified Time None Recorded Advance Directives Directive None Recorded Payers Encounter Date Sequence Insurance Name Policy Number Policy Duron Covered Member ID Duron Member ID Guarantor Name 05/27/2020 1 [facility] [employer] (HMO) [id number] Tramaine Murphyopo [id number] Tramaine Cross-Gno po 07/11/2022 [facility] Tramaine Cross-Gno po OBGyn Episode No OBEpisode recorded.
--- OUTSIDE RECORDS SUMMARY | 2024-08-25 09:46 | XMS_ITS | Encounter Summary ---
Author Organization [facility] Address [address] [place] [address] Care Team Providers Care Electrician Bus Name Role Phone Rupinder Huerta MD Primary Care Provider + Encounter Details Date Type Department Care Team (Latest Contact Info) Description 08/14/2024 Lab Requisition [facility] [address] [place] [address] Rupinder Huerta MD [address] [address] Encounter for gynecological examination (general) (routine) without abnormal findings Social History Tobacco Use Types Packs/Day Years Used Date Smoking Tobacco: Never Assessed Comments Unknown Sex and Gender Information Value Date Recorded Sex Assigned at Not on file Legal Sex Female 8:28 PM EST Gender Identity Not on file Sexual Orientation Not on file documented as of this encounter Plan of Treatment Not on file documented as of this encounter Procedures Procedure Name Priority Date/Time Associated Diagnosis Comments PAP SMEAR Routine 08/11/2024 12:00 AM EDT Encounter for gynecological examination (general) (routine) without abnormal findings documented in this encounter Results * Pap smear (08/11/2024 12:00 AM EDT) Interpretation Negative for intraepithelial lesion or malignancy 08/15/2024 8:50 AM EDT [facility] General Categorization Negative 08/15/2024 8:50 AM EDT [facility] Specimen Adequacy Satisfactory for evaluation 08/15/2024 8:50 AM EDT [facility] Pap Methodology Liquid Based Pap Test 08/15/2024 8:50 AM EDT [facility] Disclaimer The Pap test is a screening test which carries an inherent false negative rate. These test results should be correlated with the patient's clinical findings and history. This Pap test was processed using an automated screening system. Technical cytopathology services provided by [facility], at [address] [place] [address] (CLIA # [id number]/Kelsey Jarvis MD, Door Operator.) 08/15/2024 8:50 AM EDT [facility] Console Pap Interpretation Reported 08/15/2024 8:50 AM EDT [facility] Brushing/Spatula Vaginal structure / Unknown 08/11/2024 08/14/2024 6:21 AM EDT us Rupinder Huerta MD LAB CYTOLOGY ORDERABLES Final Result [facility] [address] [place] [address], documented in this encounter Visit Diagnoses Diagnosis Encounter for gynecological examination (general) (routine) without abnormal findings documented in this encounter Care Teams Electrician Bus Relationship Specialty Start Date End Date Rupinder Huerta MD [address] [address] PCP - General Obstetrics and Gynecology 07/27/24 documented as of this encounter
--- OUTSIDE RECORDS SUMMARY | 2024-08-25 09:46 | XMS_ITS | Encounter Summary ---
Author Organization [facility] Address [address] [place] [address] Care Team Providers Care Lineworker Name Role Phone Rupinder Huerta MD Primary Care Provider + Encounter Details Date Type Department Care Team (Latest Contact Info) Description 07/27/2024 Lab Requisition [facility] - Main Lab 299 [facility] [place] [address] Rupinder Huerta MD 299 [facility] [address] [place] [address] Encounter for screening for infections with a predominantly sexual mode of transmission; Renal tubulo-interstitial disorders in diseases classified elsewhere; Urinary tract infection, site not specified Social History Tobacco Use Types Packs/Day Years [...] Procedure Name Priority Date/Time Associated Diagnosis Comments URINALYSIS WITH REFLEX MICROSCOPIC Routine 07/27/2024 12:00 [...] elsewhere Urinary tract infection, site not specified documented in this encounter Results * Urinalysis with reflex microscopic (07/27/2024 12:00 AM EDT) Specific [place] Urine 1.006 1.003 - 1.030 LAB URINALYSIS - AUTOMATED METHOD 07/27/2024 7:14 PM [facility] pH, Urine 8.0 5.0 - 8.0 pH LAB URINALYSIS - AUTOMATED METHOD 07/27/2024 7:14 PM [facility] Leukocytes, Urine Negative Negative LAB URINALYSIS - AUTOMATED METHOD 07/27/2024 7:14 PM [facility] Nitrite, Urine Negative Negative LAB URINALYSIS - AUTOMATED METHOD 07/27/2024 7:14 PM [facility] Protein, Urine Negative <=Trace mg/dL LAB URINALYSIS - AUTOMATED METHOD 07/27/2024 7:14 PM [facility] Glucose, Urine Negative Negative mg/dL LAB URINALYSIS - AUTOMATED METHOD 07/27/2024 7:14 PM [facility] Ketones, Urine Negative Negative mg/dL LAB URINALYSIS - AUTOMATED METHOD 07/27/2024 7:14 PM [facility] Urobilinogen, Urine 0.2 0.2 - 1.0 mg/dL LAB URINALYSIS - AUTOMATED METHOD 07/27/2024 7:14 PM EDT [facility] Bilirubin, Urine Negative Negative LAB URINALYSIS - AUTOMATED METHOD 07/27/2024 7:14 PM EDT [facility] Blood, Urine Negative Negative LAB URINALYSIS - AUTOMATED METHOD 07/27/2024 7:14 PM EDT [facility] Urine Urine specimen obtained by clean catch procedure / Unknown 07/27/2024 07/27/2024 6:04 PM EDT us Rupinder Huerta MD LAB URINE ORDERABLES Fin al Result Performing Organization Address City/[facility]/ZIP Co de Phone Number [facility] [address] [place] [address], [place] [phone] * Culture urine (07/27/2024 12:00 AM EDT) Culture, Urine No growth 07/28/2024 2:28 PM EDT [facility] Urine Urine specimen obtained by clean catch procedure / Unknown 07/27/2024 07/27/2024 6:04 PM EDT us Rupinder Huerta MD LAB MICROBIOLOGY - GENER AL ORDERABLES Final Result Performing Organization Address City/[facility]/ZIP Co de Phone Number [facility] [address] [place] [address], [place] [phone] * Vaginitis pathogens molecular study (07/27/2024 12:00 AM EDT) Trichomonas vaginalis Negative Negative 07/28/2024 11:13 AM EDT [facility] Gardnerella vaginalis Negative Negative 07/28/2024 11:13 AM EDT [facility] Dory Species Negative Negative 11:13 AM EDT [facility] Swab Vaginal structure / Unknown 07/27/2024 07/27/2024 6:04 PM EDT Rupinder Huerta MD LAB MICROBIOLOGY - GENER AL ORDERABLES Final Result [facility] [address] [place] [address], [place] [phone] * Chlamydia trachomatis and Neisseria gonorrhoeae molecular study (07/27/2024 12:00 AM EDT) Pathologist [facility] Neisseria gonorrhoeae PCR Negative Negative LAB MOLECULAR DIAGNOSTICS METHOD 07/28/2024 10:56 AM EDT [facility] Chlamydia trachomatis PCR Negative Negative LAB MOLECULAR DIAGNOSTICS METHOD 07/28/2024 10:56 AM EDT [facility] Swab Cervix uteri structure / Unknown 07/27/2024 07/27/2024 6:04 PM EDT Rupinder Huerta MD LAB MICROBIOLOGY - GENER AL ORDERABLES Final Result Performing Organization Address City/[facility]/ZIP Co de Phone Number [facility] [address] [place] [address], [place] [phone] documented in this encounter Visit Diagnoses Diagnosis Encounter for screening for infections with a predominantly sexual mode of transmission Renal tubulo-interstitial disorders in diseases classified elsewhere Urinary tract infection, site not specified documented in this encounter Care Teams Lineworker Relationship Specialty Start Date End Date Rupinder Huerta MD [address] [address] PCP - General Obstetrics and Gynecology 07/27/24 documented as of this encounter
== END 2024-08-25 09:51 | disposition home or self-care (01) ==
LOC: HO.HOS 09:23
PROVIDERS: PCP Internal Medicine; Visit Provider Physical Medicine & Rehabilitation
DX: M47.812 Spondylosis without myelopathy or radiculopathy, cervical region (principal); G44.86 Cervicogenic headache; M79.18 Myalgia, other site
CPT/HCPCS: 99204

== ENCOUNTER → 2024-08-25 09:23 | Outpatient (BNVA) | payer OTHER, SELFPAY | PROVIDERS: PCP Internal Medicine; Visit Provider Physical Medicine & Rehabilitation | DX: M47.812 Spondylosis without myelopathy or radiculopathy, cervical region (principal); G44.86 Cervicogenic headache; M79.18 Myalgia, other site | CPT/HCPCS: 99202 ==

== ENCOUNTER 2024-09-01 10:33 | Outpatient (REF) | payer OTHER, SELFPAY ==
--- OUTSIDE RECORDS SUMMARY | 2024-09-01 11:33 | XMS_ITS | Clinical Summary ---
Author Organization [address] Address 299 [place] [address] Phone Care Team Providers Care Die Casting Supervisor Name Role Phone Rupinder Huerta MD Primary Care Provider + Encounters Date Type Department Care Team Description 08/14/2024 Lab Requisition [facility] [address] [place] [phone] Rupinder Huerta MD Encounter for gynecological examination (general) (routine) without abnormal findings 07/27/2024 Lab Requisition [facility] [address] [place] [phone] Rupinder Huerta MD Encounter for screening for [...] lesion or malignancy 08/15/2024 8:50 AM EDT [facility] General Categorization Negative 08/15/2024 8:50 AM EDT [facility] Specimen Adequacy Satisfactory for evaluation 08/15/2024 8:50 AM EDT [facility] Pap Methodology Liquid Based Pap Test 08/15/2024 8:50 AM EDT [facility] Disclaimer The Pap test is a screening test which carries an inherent false negative rate. These test results should be correlated with the patient's clinical findings and history. This Pap test was processed using an automated screening system. Technical cytopathology services provided by [facility], at [address] [place] [address] (CLIA # [id number]/Kelsey Jarvis MD, Switchboard Installer.) 08/15/2024 8:50 AM EDT [facility] Console Pap Interpretation Reported 08/15/2024 8:50 AM EDT [facility] Brushing/Spatula Vaginal structure / Unknown 08/11/2024 08/14/2024 6:21 AM EDT us Rupinder Huerta MD LAB CYTOLOGY ORDERABLES Final Result [facility] [address] [place] [address], [place] [phone] * Urinalysis with reflex microscopic (07/27/2024 12:00 AM EDT) Specific [place] Urine 1.006 1.003 - 1.030 LAB URINALYSIS - AUTOMATED METHOD 07/27/2024 7:[address] [facility] pH, Urine 8.0 5.0 - 8.0 pH LAB URINALYSIS - AUTOMATED METHOD 07/27/2024 7:[address] [facility] Leukocytes, Urine Negative Negative LAB URINALYSIS - AUTOMATED METHOD 07/27/2024 7:[address] [facility] Nitrite, Urine Negative Negative LAB URINALYSIS - AUTOMATED METHOD 07/27/2024 7:[address] [facility] Protein, Urine Negative <=Trace mg/dL LAB URINALYSIS - AUTOMATED METHOD 07/27/2024 7:[address] [facility] Glucose, Urine Negative Negative mg/dL LAB URINALYSIS - AUTOMATED METHOD 07/27/2024 7:[address] [facility] Ketones, Urine Negative Negative mg/dL LAB URINALYSIS - AUTOMATED METHOD 07/27/2024 7:[address] [facility] Urobilinogen, Urine 0.2 0.2 - 1.0 mg/dL LAB URINALYSIS - AUTOMATED METHOD 07/27/2024 7:[address] [facility] Bilirubin, Urine Negative Negative LAB URINALYSIS - AUTOMATED METHOD 07/27/2024 7:[address] [facility] Blood, Urine Negative Negative LAB URINALYSIS - AUTOMATED METHOD 07/27/2024 7:[address] [facility] Urine Urine specimen obtained by clean catch procedure / Unknown 07/27/2024 07/27/2024 6:04 PM EDT us Rupinder Huerta MD LAB URINE ORDERABLES Fin al Result Performing Organization Address [facility]/ZIP Co de Phone Number [facility] [address] [place] [address], [place] [phone] * Vaginitis pathogens molecular study (07/27/2024 12:00 AM EDT) Trichomonas vaginalis Negative Negative 07/28/2024 11:13 AM EDT [facility] Gardnerella vaginalis Negative Negative 07/28/2024 11:13 AM EDT [facility] Dory Species Negative Negative 11:13 AM EDT [facility] Swab Vaginal structure / Unknown 07/27/2024 07/27/2024 6:04 PM EDT Rupinder Huerta MD LAB MICROBIOLOGY - GENER AL ORDERABLES Final Result Performing Organization Address [facility]/ZIP Co de Phone Number [facility] [address] [place] [address], [place] [phone] * Chlamydia trachomatis and Neisseria gonorrhoeae molecular study (07/27/2024 12:00 AM EDT) Neisseria gonorrhoeae PCR Negative Negative LAB MOLECULAR DIAGNOSTICS METHOD 07/28/2024 10:56 AM EDT [facility] Chlamydia trachomatis PCR Negative Negative LAB MOLECULAR DIAGNOSTICS METHOD 07/28/2024 10:56 AM EDT [facility] Swab Cervix uteri structure / Unknown 07/27/2024 07/27/2024 6:04 PM EDT us Rupinder Huerta MD LAB MICROBIOLOGY - GENER AL ORDERABLES Final Result Performing Organization Address City/[facility]/ZIP Co de Phone Number [facility] [address] [place] [address], [place] [phone] * Culture urine (07/27/2024 12:00 AM EDT) Culture, Urine No growth 07/28/2024 2:28 PM EDT [facility] ([facility] Urine Urine specimen obtained by clean catch procedure / Unknown 07/27/2024 07/27/2024 6:04 PM EDT us Rupinder Huerta MD LAB MICROBIOLOGY - GENER AL ORDERABLES Final Result [facility] ([facility]) [facility] [address] [place] [address], from Last 3 Months Insurance [facility] [id number] MEDICAID - [place] Care Teams Die Casting Supervisor Relationship Specialty Start Date End Date Rupinder Huerta MD [address] [address] PCP - General Obstetrics and Gynecology 07/27/24
--- OUTSIDE RECORDS SUMMARY | 2024-09-01 11:33 | XMS_ITS | Encounter Summary ---
Author Organization [facility] Address [address] [place] [phone] Care Team Providers Care Equipment Engineering Technician Name Role Phone Rupinder Huerta MD Primary Care Provider + Encounter Details Date Type Department Care Team (Latest Contact Info) Description 07/27/2024 Lab Requisition [facility] - Main Lab 299 [facility] ([facility]) [place] [address] Rupinder Huerta MD 299 [facility] [address] [place] [address] Encounter for screening for infections [...] reflex microscopic (07/27/2024 12:00 AM EDT) Specific [place] Urine 1.006 1.003 - 1.030 LAB URINALYSIS - AUTOMATED METHOD 07/27/2024 7:14 PM [facility] pH, Urine 8.0 5.0 - 8.0 pH LAB URINALYSIS - AUTOMATED METHOD 07/27/2024 7:14 PM [facility] Leukocytes, Urine Negative Negative LAB URINALYSIS - AUTOMATED METHOD 07/27/2024 7:14 PM [facility] Nitrite, Urine Negative Negative LAB URINALYSIS - AUTOMATED METHOD 07/27/2024 7:14 PM [facility] Protein, Urine Negative <=Trace mg/dL LAB URINALYSIS - AUTOMATED METHOD 07/27/2024 7:14 PM [facility] Glucose, Urine Negative Negative mg/dL LAB URINALYSIS - AUTOMATED METHOD 07/27/2024 7:14 PM [facility] Ketones, Urine Negative Negative mg/dL LAB URINALYSIS - AUTOMATED METHOD 07/27/2024 7:14 PM [facility] Urobilinogen, Urine 0.2 0.2 - 1.0 mg/dL LAB URINALYSIS - AUTOMATED METHOD 07/27/2024 7:14 PM EDT [facility] Bilirubin, Urine Negative Negative LAB URINALYSIS - AUTOMATED METHOD 07/27/2024 7:14 PM EDT [facility] Blood, Urine Negative Negative LAB URINALYSIS - AUTOMATED METHOD 07/27/2024 7:14 PM EDT [facility] Urine Urine specimen obtained by clean catch procedure / Unknown 07/27/2024 07/27/2024 6:04 PM EDT us Rupinder Huerta MD LAB URINE ORDERABLES Fin al Result Performing Organization Address City/[facility]/ZIP Co de Phone Number [facility] [address] [place] [address], [place] [phone] * Culture urine (07/27/2024 12:00 AM EDT) Culture, Urine No growth 07/28/2024 2:28 PM EDT [facility] Urine Urine specimen obtained by clean catch procedure / Unknown 07/27/2024 07/27/2024 6:04 PM EDT us Rupinder Huerta MD LAB MICROBIOLOGY - GENER AL ORDERABLES Final Result Performing Organization Address City/[facility]/ZIP Co de Phone Number [facility] [address] [place] [address], [place] [phone] * Vaginitis pathogens molecular study (07/27/2024 12:00 AM EDT) Trichomonas vaginalis Negative Negative 07/28/2024 11:13 AM EDT [facility] Gardnerella vaginalis Negative Negative 07/28/2024 11:13 AM EDT [facility] Dory Species Negative Negative 11:13 AM EDT [facility] Swab Vaginal structure / Unknown 07/27/2024 07/27/2024 6:04 PM EDT Rupinder Huerta MD LAB MICROBIOLOGY - GENER AL ORDERABLES Final Result [facility] [address] [place] [address], [place] [phone] * Chlamydia trachomatis and Neisseria gonorrhoeae molecular study (07/27/2024 12:00 AM EDT) Pathologist [facility] Neisseria gonorrhoeae PCR Negative Negative LAB MOLECULAR DIAGNOSTICS METHOD 07/28/2024 10:56 AM EDT [facility] Chlamydia trachomatis PCR Negative Negative LAB MOLECULAR DIAGNOSTICS METHOD 07/28/2024 10:56 AM EDT [facility] Swab Cervix uteri structure / Unknown 07/27/2024 07/27/2024 6:04 PM EDT Rupinder Huerta MD LAB MICROBIOLOGY - GENER AL ORDERABLES Final Result Performing Organization Address City/[facility]/ZIP Co de Phone Number [facility] [address] [place] [address], [place] [phone] documented in this encounter Visit Diagnoses Diagnosis Encounter for screening for infections with a predominantly sexual mode of transmission Renal tubulo-interstitial disorders in diseases classified elsewhere Urinary tract infection, site not specified documented in this encounter Care Teams Equipment Engineering Technician Relationship Specialty Start Date End Date Rupinder Huerta MD [address] [address] PCP - General Obstetrics and Gynecology 07/27/24 documented as of this encounter
--- OUTSIDE RECORDS SUMMARY | 2024-09-01 11:33 | XMS_ITS | Encounter Summary ---
Author Organization [facility] Address [address] [place] [address] Care Team Providers Care Java Mobile Developer Name Role Phone Rupinder Huerta MD Primary Care Provider + Encounter Details Date Type Department Care Team (Latest Contact Info) Description 08/14/2024 Lab Requisition [facility] - Main Lab [address] [place] [address] Rupinder Huerta MD [address] [address] Encounter for gynecological examination (general) [...] lesion or malignancy 08/15/2024 8:50 AM EDT [facility] General Categorization Negative 08/15/2024 8:50 AM EDT [facility] Specimen Adequacy Satisfactory for evaluation 08/15/2024 8:50 AM EDT [facility] Pap Methodology Liquid Based Pap Test 08/15/2024 8:50 AM EDT [facility] Disclaimer The Pap test is a screening test which carries an inherent false negative rate. These test results should be correlated with the patient's clinical findings and history. This Pap test was processed using an automated screening system. Technical cytopathology services provided by [facility], at [address] [place] [address] (CLIA # [id number]/Kelsey Jarvis MD, Chief Of Staff.) 08/15/2024 8:50 AM EDT [facility] Console Pap Interpretation Reported 08/15/2024 8:50 AM EDT [facility] Brushing/Spatula Vaginal structure / Unknown 08/11/2024 08/14/2024 6:21 AM EDT us Rupinder Huerta MD LAB CYTOLOGY ORDERABLES Final Result [facility] [address] [place] [address], documented in this encounter Visit Diagnoses Diagnosis Encounter for gynecological examination (general) (routine) without abnormal findings documented in this encounter Care Teams Java Mobile Developer Relationship Specialty Start Date End Date Rupinder Huerta MD [address] [address] PCP - General Obstetrics and Gynecology 07/27/24 documented as of this encounter
--- OUTSIDE RECORDS SUMMARY | 2024-09-01 11:33 | XMS_ITS | Data Portability ---
Author Organization [facility]if [facility] Address [address] [place] [address] Care Team Providers Care Biscuit Factory Worker Name Role Phone VU ROSADO Garbage Stoker Assessment No assessment recorded. Plan of Treatment Reminders Order Date Submit Date Provider Last Modified By Organization Details Last Modified Time Details Appointments None record ed. Lab None record ed. Referral None record ed. Procedures None record ed. Surgeries None record ed. Imaging XR, chest, 1 view 023 07/11/19 [email or web address] [facility], [address] [place], [address], 10:38:32 Medication Orders None record ed. Patient TargetsNo targets recorded. Patient InstructionsNo instructions recorded. Reason for Referral None Reported. Results Created Date Observation Date Name Description Value Unit Range Abnormal Flag Note LastModifiedBy Organization Detail LastModifiedTime 07/11/19 23 07/11/2022 XR, chest , 1 view No observ ation record ed. [email or web address] [facility] [address] [place], [address], 07/11/2022 10:43:10 Result Notes None recorded. Procedures Surgical History Date Name Laterality Status Provider Name and Address Organization Details Recorded Time 07/11/2022 OC-Other completed TODD Bonilla Optjuanita [facility] 07/11/2022 09:53:41 Imaging Results Imaging Date Name Status LastModified by Organiz ation Details LastModified Time 07/11/2022 XR, chest, 1 view completed [email or web address] [facility] [address] [place], [address], 07/11/2022 10:43:10 Procedure Notes None recorded. Medical [...] SNOMED-CT Code Diagnosis ICD10 Code Diagnosis Note [id number] [address] 08/09/2018 10:34:52 08/09/2018 12:19:38 [id number] [address] [facility] [address] [place] [address] 05/27/2020 17:15:05 05/27/2020 18:41:36 [id number] [place] [address] [email or web address] [address] [place] [address] 07/11/2022 08:57:25 07/11/2022 10:38:31 Tuberculosis screening [id number] Z11.1 Health Concerns Section Related Observation LastModified by Organization Detai ls LastModified Time None Recorded Concern Status LastModified by Organization Details LastModified Time None Recorded Advance Directives Directive None Recorded Payers Encounter Date Sequence Insurance Name Policy Number Policy Duron Covered Member ID Duron Member ID Guarantor Name 05/27/2020 1 [facility] (HMO) [id number] Tramaine Murphyopo [id number] Tramaine Cross-Gno po 07/11/2022 [facility] Tramaine Cross-Gno po OBGyn Episode No OBEpisode recorded.
== END 2024-09-01 10:34 | disposition home or self-care (01) ==
LOC: HO.MAMMO 10:33
PROVIDERS: PCP Internal Medicine; Visit Provider Internal Medicine
DX: Z12.31 Encounter for screening mammogram for malignant neoplasm of breast (principal)
CPT/HCPCS: 77063; 77067

== ENCOUNTER → 2024-09-01 11:00 | Outpatient (BNV) | payer OTHER, SELFPAY | PROVIDERS: PCP Internal Medicine; Visit Provider Internal Medicine | DX: Z12.31 Encounter for screening mammogram for malignant neoplasm of breast (principal) | CPT/HCPCS: 77063; 77067 ==

== ENCOUNTER 2024-10-26 13:32 | Outpatient (AMB) | payer OTHER, SELFPAY ==
--- NOTE | 2024-10-26 13:35 | A.OFFPC_ITS ---
Vital Signs 10/26/24 13:36 Height 5 ft 6 in Weight 143 lb 6 oz BMI 23.1 BP 110/70 Blood Pressure Location Lt brachial Position Sitting Pulse 76 Pulse Source Pulse Oximeter Temp 97.1 F Temp Source Temporal Artery Scan Pulse Oximetry (%) 99 Oxygen Delivery Method Room Air Intake Visit Reasons: Annual Exam Intake Note: Patient is here today for a physical. Senior Instructional Designer Required: No Visual Arts Teacher: Not Required per policy Accompanied by: Self / Same As Patient Allergies Quinidine-Quinine Analogues (Cincho Allergy (Verified 10/27/24 08:52) itch Influenza vaccine Adverse Reaction (Severe, Uncoded 10/27/24 08:52) severe flu like symptoms dairy Adverse Reaction (Mild, Uncoded 10/27/24 08:52) Hives Medication List - Last Reconciled 10/27/24 by Esteban Xiong MD ferrous sulfate (Feosol) 325 mg PO DAILY multivitamin 1 tab PO DAILY Tobacco use date assessed: 10/26/24 Dental Screening Dental Screen Date: 10/26/24 Did you have a dental visit in the last 12 months?: Yes Did you have a dental problem in the last 6 months where you did not have access to dental care?: No Was dental information given to patient?: Patient has dentist HPI Annual Exam HPI Details 49 yr old female presents to the office requesting an annual physical. 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 1. Little interest or pleasure in doing things: not at all 2. Feeling down, depressed, or hopeless: not at all 3. Trouble falling or staying asleep, or sleeping too much: not at all 4. Feeling tired or having little energy: not at all 5. Poor appetite or overeating: not at all 6. Feeling bad about yourself - or that you are a failure or have let yourself or your family down: not at all 7. Trouble concentrating on things, such as reading the newspaper or watching television: not at all 8. Moving or speaking so slowly that other people could have noticed. Or the opposite - being so fidgety or restless that you have been moving around a lot more than usual: not at all 9. Thoughts that you would be better off or of hurting yourself in some way: not at all Total score: 0 Depression Screening Interpretation: Negative Depression Screening Done: Yes Source: Developed by Drs. Josh Beltre, Princess Andersen, Jairo Aparicio and colleagues, with an educational nicolle from [employer]. Thrive Questionnaire Date Thrive assessed: 10/26/24 I am a: Patient What is your living situation today?: I have a steady place to live Within the past 12 months, did the food you bought not last and you didn't have the money to get more?: Often true Within the past 12 months, did you worry whether your food would run out before you got money to buy more?: I choose not to answer this question Do you have trouble paying for medicines?: No Do you have trouble getting transportation to medical appointments?: No Do you have trouble paying your heating and electricity bill?: No Do you have trouble taking care of your child, family member or friend?: No Do you have trouble with day-to-day activities such as bathing, preparing meals, shopping, managing finances, etc.?: No Are you currently unemployed and looking for a job?: No Are you interested in more education?: I choose not to answer this question Please select the resources that you would like help with: None Currently or been in a relationship where the following occur: I choose not to answer THRIVE Score: 1 AUDIT C Alcohol Use Questionnaire (AUDIT-C) 1. How often do you have a drink containing alcohol?: Never Total Score: 0 SOURAV-7 AMB Questionnaire SOURAV-7 Date SOURAV - 7 assessed: 10/26/24 Feeling nervous, anxious, or on edge: 0 = Not at all Not being able to stop or control worryin = Not at all Worrying too much about different things: 0 = Not at all Trouble relaxin = Not at all Being so restless that it is hard to sit still: 0 = Not at all Becoming easily annoyed or irritable: 0 = Not at all Feeling afraid as if something awful might happen: 0 = Not at all Total SOURAV-7 score (0-4 normal; 5-9 mild; 10-14 moderate; 15-21 severe): 0 Source: Developed by Drs. Josh Beltre, Princess Andersen, Jairo Aparicio and colleagues, with an educational nicolle from [employer]. Physical exam (Primary Care) Vital Signs: Last Vital Signs Temp 97.1 F 10/26/24 13:36 Pulse 76 10/26/24 13:36 BP 110/70 10/26/24 13:36 Pulse Ox 99 10/26/24 13:36 Oxygen Delivery Method Room Air 10/26/24 13:36 Care Plan Goal for BP management: BP in range BMI result Body Mass Index 23.1 Tobacco/Smoking Status: Tobacco use Status Tobacco use date assessed 10/26/24 10/26/24 13:40 Patient Tobacco Use Status Never used Tobacco 10/26/24 13:40 e-Cigarette/Vaping Use Never Used 10/26/24 13:40 PHQ-9: PHQ-9 Score PHQ-9: Total score 0 10/26/24 13:40 Depression Screening Interpretation: Negative Thrive Assessment: Date of Thrive Assessment Date Thrive assessed 10/26/24 10/26/24 13:40 Currently or been in a relationship where the following occur: I choose not to answer Coding Level of Care Code Est Pt Prev Care 40-64y(10747) Diagnoses Screening for hyperlipidemia Z Annual physical exam Z00. Assessment & Plan Assessment & Plan (1) Screening for hyperlipidemia: Code(s): Z13.220 - Encounter for screening for lipoid disorders Category: Medical Plan: Blood work ordered, (2) Annual physical exam: Code(s): Z00. - Encounter for general adult medical examination without abnormal findings Plan: History of Present Illness - The patient is a 49-year-old female presenting with routine follow-up concerns for her existing health issues and general health maintenance. - Complains of heat rash on her back when exposed to hot weather, worsened by polyester clothing, noted for a few months. - Past blood work in April noted mildly elevated liver enzymes. Plan for repeat labs is mentioned. - History of cervical spine arthritis identified by imaging; intermittent pain managed with physical therapy resulting in improvements. Injection therapy was not deemed necessary. - Experiences intermittent knee and toe pain; specific details about chronicity or contributing factors are not noted. - Recent mammogram, colonoscopy, and Pap smear showed normal findings; mentioned lack of formal notification for Pap smear results. Social History - Employed status discussed; no specific details on occupation or nature of work provided. Review of Systems - Integumentary System: Reports rash on the back when exposed to hot conditions. - Musculoskeletal System: Reports neck pain, knee pain, and toe pain. - General: Denies any current significant health concerns. Physical Exam General: Cooperative and healthy appearing Nutritional Appearance: Well nourished Orientation/consciousness: Patient oriented x3 Limitations: No limitations Head: Normal to inspection General: Appearance normal, both eyes and all related structures Neck: Normal visual inspection Chest: Normal palpation of entire chest wall Respiratory: Normal respiratory effort Neurology: Patient oriented x3 Results - Labs: Prior blood work noted mildly elevated liver enzymes (no specific values or recent repeat results discussed). Plan 1. Heat Rash - Plan to monitor and avoid triggers such as hot temperatures and certain fabrics. 2. Osteoarthritis Of The Cervical Spine - Continue with physical therapy; no injectable treatments necessary currently. 3. Knee Pain - Monitor symptoms and provide symptomatic relief as needed. 4. Toe Pain - Manage symptoms as they arise; no specific current interventions discussed. Discussion Notes During the visit, I discussed with the patient the nature of her heat rash, suggesting avoiding hot conditions and specific clothing as a preventative measure. We reviewed her history of cervical spine arthritis and the current management plan of continuing physical therapy, which has shown benefits. I reas sured her about the non-necessity of injection therapy, given the mild severity. For her knee and toe pain, I suggested monitoring and symptomatic relief without indicating the need for urgent intervention. I confirmed that recent screenings, including a mammogram, colonoscopy, and Pap smear, returned normal results, although she will look into formal documentation or notification regarding her Pap smear. We agreed to repeat the blood work to monitor her liver enzymes and discussed the convenience of fasting for tomorrow's test. Follow-up appointments are set for semi-annual surveillance. Patient Instructions - Avoid hot environments and wear breathable fabrics to prevent heat rash. - Continue physical therapy exercises for neck arthritis. - Monitor for any significant changes in joint pain and use symptomatic measures like [id number] pain relief when necessary. - Stay informed about formal results of recent screenings, especially the Pap smear. - Return for blood work fasting tomorrow. Orders: Orders Complete Blood Count no Diff Today Z13.220 - Encounter for screening for lipoid disorders Thyroid Stimulating Hormone Today Z13.220 - Encounter for screening for lipoid disorders Basic Metabolic Panel Today Z13.220 - Encounter for screening for lipoid disorders Lipid Panel Today Z13.220 - Encounter for screening for lipoid disorders Liver Panel Today Z13.220 - Encounter for screening for lipoid disorders UA and rflx microscopic Today Z13.220 - Encounter for screening for lipoid disorders
[2024-10-26 13:36] VITALS: BP 110/70; PULSE 76; TEMP 36.2; O2SAT 99; BMI 23.1
--- OUTSIDE RECORDS SUMMARY | 2024-10-26 15:48 | XMS_ITS | Encounter Summary ---
Author Organization [facility] Address [address] [place] [id number] Care Team Providers Care Blood Bank Specialist Name Role Phone Rupinder Huerta MD Primary Care Provider + Encounter Details Date Type Department Care Team (Latest Contact Info) Description 07/27/2024 Lab Requisition [facility] - Main Lab [address] [facility] [place] [address] Rupinder Huerta MD 299 [facility] [address] [place] [address] Encounter for screening for infections [...] reflex microscopic (07/27/2024 12:00 AM EDT) Specific [place] Urine 1.006 1.003 - 1.030 LAB URINALYSIS - AUTOMATED METHOD 07/27/2024 7:14 PM [facility] pH, Urine 8.0 5.0 - 8.0 pH LAB URINALYSIS - AUTOMATED METHOD 07/27/2024 7:14 PM [facility] Leukocytes, Urine Negative Negative LAB URINALYSIS - AUTOMATED METHOD 07/27/2024 7:14 PM [facility] Nitrite, Urine Negative Negative LAB URINALYSIS - AUTOMATED METHOD 07/27/2024 7:14 PM [facility] Protein, Urine Negative <=Trace mg/dL LAB URINALYSIS - AUTOMATED METHOD 07/27/2024 7:14 PM [facility] Glucose, Urine Negative Negative mg/dL LAB URINALYSIS - AUTOMATED METHOD 07/27/2024 7:14 PM [facility] Ketones, Urine Negative Negative mg/dL LAB URINALYSIS - AUTOMATED METHOD 07/27/2024 7:14 PM [facility] Urobilinogen, Urine 0.2 0.2 - 1.0 mg/dL LAB URINALYSIS - AUTOMATED METHOD 07/27/2024 7:14 PM EDT [facility] Bilirubin, Urine Negative Negative LAB URINALYSIS - AUTOMATED METHOD 07/27/2024 7:14 PM EDT [facility] Blood, Urine Negative Negative LAB URINALYSIS - AUTOMATED METHOD 07/27/2024 7:14 PM EDT [facility] Urine Urine specimen obtained by clean catch procedure / Unknown 07/27/2024 07/27/2024 6:04 PM EDT us Rupinder Huerta MD LAB URINE ORDERABLES Fin al Result Performing Organization Address City/[facility]/ZIP Co de Phone Number [facility] [address] [place] [address], [place] [phone] * Culture urine (07/27/2024 12:00 AM EDT) Culture, Urine No growth 07/28/2024 2:28 PM EDT [facility] Urine Urine specimen obtained by clean catch procedure / Unknown 07/27/2024 07/27/2024 6:04 PM EDT us Rupinder Huerta MD LAB MICROBIOLOGY - GENER AL ORDERABLES Final Result Performing Organization Address City/[facility]/ZIP Co de Phone Number [facility] [address] [place] [address], [place] [phone] * Vaginitis pathogens molecular study (07/27/2024 12:00 AM EDT) Trichomonas vaginalis Negative Negative 07/28/2024 11:13 AM EDT [facility] Gardnerella vaginalis Negative Negative 07/28/2024 11:13 AM EDT [facility] Dory Species Negative Negative 11:13 AM EDT [facility] Swab Vaginal structure / Unknown 07/27/2024 07/27/2024 6:04 PM EDT Rupinder Huerta MD LAB MICROBIOLOGY - GENER AL ORDERABLES Final Result [facility] [address] [place] [address], [place] [phone] * Chlamydia trachomatis and Neisseria gonorrhoeae molecular study (07/27/2024 12:00 AM EDT) Pathologist [facility] Neisseria gonorrhoeae PCR Negative Negative LAB MOLECULAR DIAGNOSTICS METHOD 07/28/2024 10:56 AM EDT [facility] Chlamydia trachomatis PCR Negative Negative LAB MOLECULAR DIAGNOSTICS METHOD 07/28/2024 10:56 AM EDT [facility] Swab Cervix uteri structure / Unknown 07/27/2024 07/27/2024 6:04 PM EDT Rupinder Huerta MD LAB MICROBIOLOGY - GENER AL ORDERABLES Final Result Performing Organization Address City/[facility]/ZIP Co de Phone Number [facility] [address] [place] [address], [place] [phone] documented in this encounter Visit Diagnoses Diagnosis Encounter for screening for infections with a predominantly sexual mode of transmission Renal tubulo-interstitial disorders in diseases classified elsewhere Urinary tract infection, site not specified documented in this encounter Care Teams Blood Bank Specialist Relationship Specialty Start Date End Date Rupinder Huerta MD [address] [phone] PCP - General Obstetrics and Gynecology 07/27/24 documented as of this encounter
== END 2024-10-26 14:02 | disposition home or self-care (01) ==
LOC: HO.HMCH 13:33
PROVIDERS: PCP Internal Medicine; Visit Provider Internal Medicine
DX: Z13.220 Encounter for screening for lipoid disorders (principal); Z00.00 Encounter for general adult medical examination without abnormal findings

== ENCOUNTER → 2024-10-26 13:32 | Outpatient (BNVA) | payer OTHER, SELFPAY | PROVIDERS: PCP Internal Medicine; Visit Provider Internal Medicine | DX: Z00.00 Encounter for general adult medical examination without abnormal findings (principal); M47.812 Spondylosis without myelopathy or radiculopathy, cervical region | CPT/HCPCS: 99396 ==

== ENCOUNTER 2024-10-27 10:13 | Outpatient (REF) | payer OTHER, SELFPAY ==
[2024-10-27 10:38] LABS: Hematocrit 39.2 % (37.0-47.0); Hemoglobin 12.4 g/dl (12.0-16.0); Mean Corpuscular HGB Conc 31.6 g/dl (31.0-35.0); Mean Corpuscular Hemoglobin 22.6 pg (27.0-33.0); Mean Corpuscular Volume 71.5 fL (80.0-98.0); Mean Platelet Volume 11.3 fL (9.4-12.3); Platelet Count 178 X10*3/uL (160-400); Red Blood Count 5.48 X10*6/uL (4.20-5.50); Red Cell Distribution Width 14.8 % (11.0-16.0); White Blood Count 4.4 X10*3/uL (4.8-10.8)
--- OUTSIDE RECORDS SUMMARY | 2024-10-27 11:08 | XMS_ITS | Encounter Summary ---
Author Organization [facility] Address [address] [place] [id number] Care Team Providers Care Channel Lip Stiffener Insoles Name Role Phone Rupinder Huerta MD Primary Care Provider + Encounter Details Date Type Department Care Team (Latest Contact Info) Description 07/27/2024 Lab Requisition [facility] - Main Lab [address] [facility] [address] Rupinder Huerta MD 299 [facility] [address] [place] [address] Encounter for screening for infections [...] reflex microscopic (07/27/2024 12:00 AM EDT) Specific [place] Urine 1.006 1.003 - 1.030 LAB URINALYSIS - AUTOMATED METHOD 07/27/2024 7:14 PM [facility] pH, Urine 8.0 5.0 - 8.0 pH LAB URINALYSIS - AUTOMATED METHOD 07/27/2024 7:14 PM [facility] Leukocytes, Urine Negative Negative LAB URINALYSIS - AUTOMATED METHOD 07/27/2024 7:14 PM [facility] Nitrite, Urine Negative Negative LAB URINALYSIS - AUTOMATED METHOD 07/27/2024 7:14 PM [facility] Protein, Urine Negative <=Trace mg/dL LAB URINALYSIS - AUTOMATED METHOD 07/27/2024 7:14 PM [facility] Glucose, Urine Negative Negative mg/dL LAB URINALYSIS - AUTOMATED METHOD 07/27/2024 7:14 PM [facility] Ketones, Urine Negative Negative mg/dL LAB URINALYSIS - AUTOMATED METHOD 07/27/2024 7:14 PM [facility] Urobilinogen, Urine 0.2 0.2 - 1.0 mg/dL LAB URINALYSIS - AUTOMATED METHOD 07/27/2024 7:14 PM EDT [facility] Bilirubin, Urine Negative Negative LAB URINALYSIS - AUTOMATED METHOD 07/27/2024 7:14 PM EDT [facility] Blood, Urine Negative Negative LAB URINALYSIS - AUTOMATED METHOD 07/27/2024 7:14 PM EDT [facility] Urine Urine specimen obtained by clean catch procedure / Unknown 07/27/2024 07/27/2024 6:04 PM EDT us Rupinder Huerta MD LAB URINE ORDERABLES Fin al Result Performing Organization Address City/[facility]/ZIP Co de Phone Number [facility] [address] [place] [address], [place] [phone] * Culture urine (07/27/2024 12:00 AM EDT) Culture, Urine No growth 07/28/2024 2:28 PM EDT [facility] Urine Urine specimen obtained by clean catch procedure / Unknown 07/27/2024 07/27/2024 6:04 PM EDT us Rupinder Huerta MD LAB MICROBIOLOGY - GENER AL ORDERABLES Final Result Performing Organization Address City/[facility]/ZIP Co de Phone Number [facility] [address] [place] [address], [place] [phone] * Vaginitis pathogens molecular study (07/27/2024 12:00 AM EDT) Trichomonas vaginalis Negative Negative 07/28/2024 11:13 AM EDT [facility] Gardnerella vaginalis Negative Negative 07/28/2024 11:13 AM EDT [facility] Dory Species Negative Negative 11:13 AM EDT [facility] Swab Vaginal structure / Unknown 07/27/2024 07/27/2024 6:04 PM EDT Rupinder Huerta MD LAB MICROBIOLOGY - GENER AL ORDERABLES Final Result [facility] [address] [place] [address], [place] [phone] * Chlamydia trachomatis and Neisseria gonorrhoeae molecular study (07/27/2024 12:00 AM EDT) Pathologist [facility] Neisseria gonorrhoeae PCR Negative Negative LAB MOLECULAR DIAGNOSTICS METHOD 07/28/2024 10:56 AM EDT [facility] Chlamydia trachomatis PCR Negative Negative LAB MOLECULAR DIAGNOSTICS METHOD 07/28/2024 10:56 AM EDT [facility] Swab Cervix uteri structure / Unknown 07/27/2024 07/27/2024 6:04 PM EDT Rupinder Huerta MD LAB MICROBIOLOGY - GENER AL ORDERABLES Final Result Performing Organization Address City/[facility]/ZIP Co de Phone Number [facility] [address] [place] [address], [place] [phone] documented in this encounter Visit Diagnoses Diagnosis Encounter for screening for infections with a predominantly sexual mode of transmission Renal tubulo-interstitial disorders in diseases classified elsewhere Urinary tract infection, site not specified documented in this encounter Care Teams Channel Lip Stiffener Insoles Relationship Specialty Start Date End Date Rupinder Huerta MD [address] [phone] PCP - General Obstetrics and Gynecology 07/27/24 documented as of this encounter
[2024-10-27 11:10] LABS: Appearance Urine Clear; Color Urine Yellow; Glucose Urine UA Negative (Negative); Leukocyte Esterase Urine Negative (Negative); Nitrite Urine Negative (Negative); Specific Gravity - Urine 1.025 (1.005-1.025); Urine Blood Negative (Negative); Urine Ketones Negative (Negative); Urine Protein Negative (Neg-Trace)
[2024-10-27 11:17] LABS: Alanine Aminotransferase 20 U/L (0-31); Albumin Level 4.5 g/dL (3.5-5.0); Alkaline Phosphatase 42 U/L (39-117); Anion Gap 9 (12-20); Aspartate Amino Transferase 19 U/L (5-31); Bilirubin Direct 0.1 mg/dL (0.0-0.5); Bilirubin Total 0.4 mg/dL (0.0-1.0); Blood Urea Nitrogen 11 mg/dL (9-16); Calcium 9.8 mg/dL (8.4-10.2); Carbon Dioxide 26 mmol/L (22-29); Chloride 108 mmol/L (96-108); Cholesterol 190 mg/dL (<200); Estimated Glomerular Filt Rate > 60; Glucose Random 97 mg/dL (60-115); HDL Cholesterol 49 mg/dL (>40); LDL Cholesterol Calculated 130 mg/dL (<100); Potassium 4.2 mmol/L (3.3-5.1); Sodium 139 mmol/L (135-145); Total Protein 7.1 g/dL (6.5-8.0); Triglycerides 59 mg/dL (<150)
[2024-10-27 11:21] LABS: Thyroid Stimulating Hormone 0.63 uIU/mL (0.32-4.0)
== END 2024-10-27 10:14 | disposition home or self-care (01) ==
LOC: HO.LAB 10:13
PROVIDERS: PCP Internal Medicine; Visit Provider Internal Medicine
DX: Z13.220 Encounter for screening for lipoid disorders (principal)
CPT/HCPCS: 36415; 80048; 80061; 80076; 81003; 84443; 85027

== ENCOUNTER 2024-11-03 09:00 | Outpatient (RCR) | payer OTHER, SELFPAY ==
--- NOTE | 2024-09-29 09:41 | MHC.PT.EP ---
[facility] [place] Office [place] Office [place] Office [address] Kerry Worthy [address] [phone] F: [phone] F: [phone] F: [phone] F: [phone] Physical Therapy Plan of Care Date of Evaluation: 09/29/24 Date of Surgery: n/a Diagnosis: radiculopathy, cervical Assessment: Patient is a 49 year old female presenting to PT with complaints of pain in her neck. Pt reports onset of pain began end of 2023 due to insidious onset but she did have an injury at work a few years ago. She presents today with impairments in pain, cervical ROM, posture, tenderness to soft tissue muscles. 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 Pt expresses keno terminal operator goal of reducing pain, and is motivated to work towards this in PT. Clinical presentation today is most consistent with signs and sx associated with neck pain and pt will benefit from skilled PT 2 week x 4 weeks to address the following problems and impairments noted upon evaluation: pain, cervical ROM, posture, tenderness to soft tissue muscles. These problems limit the patient with the following functional activities: lifting, ADLs, work. The prescribed treatment plan of care is medically necessary. Co-morbidities of occipital neuralgia were identified and taken into considerations of plan of care. Pt was educated on HEP, role of PT, prognosis, POC. Frequency and Duration: The patient will be seen 2 x week x 4 weeks Short Term Goals: Pt will demonstrate ability to move through available cervical ROM with min to no pain in 2 weeks. Pt will demonstrate improved posture as evidence by min to no cues for correction during the session in 2 weeks. Site Acquisition Manager Goals: Pt will demonstrate improved NDI score by 10% in 4 weeks for improved functional mobility. Pt will demonstrate ability to lift with min to n pain in 4 weeks for return to PLOF. Pt will demonstrate ability to complete ADLs with min to n pain in 4 weeks for return to PLOF. Treatment Plan: Modalities to reduce pain, spasms and effusion. Manual therapy to restore motion and function. Therapeutic exercise to improve strength and flexibility. Neuromuscular re-education for posture and balance. Therapeutic activities to return to functional activities of daily living. Electronically signed by: Madhuri Batres, PT, DPT, ATC Please sign and return to therapist. Thank you for your referral.
--- NOTE | 2024-11-03 09:40 | MHC.PT.DC ---
[facility] [place] Office [place] Office [place] Office [address] Kerry Worthy [address] [phone] F: [phone] F: [phone] F: [phone] F: [phone] Physical Therapy Discharge Report Diagnosis: radiculopathy, cervical Date of Surgery: n/a Date of Evaluation: 09/29/24 Date of Discharge: 11/03/24 Treatments to Date: 4 Cancellations to Date: 0 No Shows to Date: 1 Discharge Status: Improved Function Patient Elected to Stop Discharge Summary: 11/03/2024: She is doing well with all exercises and is without pain. Still needs cues at times for speed as she tends to move quick. She is feeling better overall since start of care. She has no visits booked and would like to continue with her program at home vs in the clinic therefore we will d/c per her request. She knows to continue with her program to maintain all gains. Electronically signed by: Madhuri Batres, PT, DPT, ATC Please sign and return to therapist. Thank you for your referral.
== END 2024-11-03 09:41 | disposition home or self-care (01) ==
LOC: HO.PTCHIC 09:00
PROVIDERS: PCP Internal Medicine; Visit Provider Physician Assistant Medical
DX: M54.12 Radiculopathy, cervical region (principal); M54.9 Dorsalgia, unspecified
CPT/HCPCS: 97110; 97161

== ENCOUNTER 2024-12-01 08:55 | Outpatient (REF) | payer OTHER, SELFPAY ==
--- NOTE | ~2024-12-01 | XR_ITS ---
CLINICAL HISTORY: M54.9 - Dorsalgia, unspecified 2 views thoracic spine Comparison: CR/SR - XR CERVICAL SPINE 2-3 VIEWS - 04/20/24 13:09 EST CR/SR - XR LUMBAR SPINE 2-3 VIEWS - 04/20/24 13:01 EST Findings: Normal vertebral body alignment. No acute fractures or dislocation. No significant degenerative change. Cholecystectomy clips are again seen within the right upper quadrant. IMPRESSION: No acute findings. This document has been electronically signed by: Fernando Mosley MD on 12/02/2024 09:26:27
--- NOTE | ~2024-12-01 | XR_ITS ---
CLINICAL HISTORY: M25.559 - Pain in unspecified hip Exam: AP and frog-leg lateral views of the bilateral hips. Comparison: None provided. Findings: Bony alignment of the hip joints is anatomic. No fracture or erosion. Minor osteophyte formation of the left lateral femoral head neck junction. Sacroiliac joints and pubic symphysis are unremarkable. Impression: No acute findings. Minor left hip DJD. This document has been electronically signed by: Fernando Mosley MD on 12/02/2024 09:26:14
== END 2024-12-01 08:56 | disposition home or self-care (01) ==
LOC: HO.HOSX 08:55
PROVIDERS: PCP Internal Medicine; Visit Provider Physical Medicine & Rehabilitation
DX: M53.3 Sacrococcygeal disorders, not elsewhere classified (principal); M54.9 Dorsalgia, unspecified; M54.59 Other low back pain; M79.18 Myalgia, other site
CPT/HCPCS: 72070; 73522; 99212

== ENCOUNTER 2024-12-01 08:55 | Outpatient (AMB) | payer OTHER, SELFPAY ==
--- NOTE | 2024-12-01 09:00 | MHC.OFFVIS ---
Vital Signs 12/01/24 09:07 Height 5 ft 6 in Weight 143 lb BMI 23.1 Intake Visit Reasons: OV- Radiculopathy, cervical region, B/L sides Intake Note: Tramaine is a 49 year old female who presents today for a follow up of Cervical radiculopathy B/L sides. Physical therapy started 10/08 and last visit was on 11/03/24 . Patient states she has learn a lot while attending therapy and is continuing to do exercises at home with improvement. Patient mentioned she has been having left lower back pain for the last 3 weeks. Allergies Quinidine-Quinine Analogues (Cincho Allergy (Verified 12/01/24 09:06) itch Influenza vaccine Adverse Reaction (Severe, Uncoded 12/01/24 09:06) severe flu like symptoms dairy Adverse Reaction (Mild, Uncoded 12/01/24 09:06) Hives Medication List - Last Reconciled 12/01/24 by Jaclyn Sánchez MD atorvastatin 20 mg PO BEDTIME ferrous sulfate (Feosol) 325 mg PO DAILY multivitamin 1 tab PO DAILY HPI Comments Details: Initially seen 08/25/2024 for cervicogenic headache, myofascial pain, underlying cervical spondylosis. Patient sent to physical therapy with good results. Reviewed discharge summary from physical therapy dated 11/03/2024. The upper back pain was better after PT. But notes that whenever she lifts anything like laundry bin, it starts to bother her again. 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 Pain mostly at night, not same day but following night. Usually neck and lower back pain as well. Lower back pain would go to left abdomen but not left leg. Thought she had UTI but saw PCP and she was cleared from infection. Last severe episode 2 weeks ago. Today 10/24. 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 Patient was appropriately conversant and oriented. Good historian. MSK: Inspection reveals appropriate head and neck positioning. There is some tenderness over upper trapezius. There is also tenderness over SI joints bilateral and lumbar paraspinals. Cervical ROM was full. Spurling's sign negative. Bilateral shoulder, elbow and wrist ROM WNL. No ligamentous laxity or crepitance. No increased effusion. No specific abnormalities or instability found on inspection and palpation of the spine and extremities. Strength is 5/5 in all muscle groups tested. No increased tone noted. Neurological: Mood appears normal, good affect, and appropriate for the circumstances. Neurologic examination of the upper and lower extremities was nonfocal with intact sensation, muscle stretch reflexes and without focal motor deficits. Bardales?s negative bilaterally. Gait is non-antalgic without loss of balance. Results Reviewed Results Reviewed: I independently reviewed the results of the following: Cervical x-ray shows very mild decreased space C5-6, with anterior endplate spurs. Ordering Physician: Esteban Xiong MD Date of Service: 04/20/24 Procedure(s): XR cervical spine 3V Accession Number(s): [id number] cc: Esteban Xiong MD~ EXAMINATION: XR CERVICAL SPINE CLINICAL INFORMATION: Cervicalgia M54.2. COMPARISON: XR Cervical spine 01/01/2023 TECHNIQUE: 5 views of the cervical spine were obtained. FINDINGS: Bone mineralization is normal. Moderate degenerative changes with hypertrophic change and loss of disc space height at C5-C6. Alignment maintained. Ordering Physician: Esteban Xiong MD Date of Service: 04/20/24 Procedure(s): XR lumbar spine 2-3V Accession Number(s): [id number] cc: Esteban Xiong MD~ EXAMINATION: XR LUMBOSACRAL SPINE CLINICAL INFORMATION: Cervicalgia M54.2. COMPARISON: XR KUB 05/20/2020. TECHNIQUE: 3 views of the lumbosacral spine. FINDINGS: Surgical clips in the right upper quadrant. Moderate degenerative changes in the bilateral sacroiliac joints. Facet arthritis in the lower spine. Mild multilevel lumbar spondylosis. Lumbar disc space heights are preserved. XR/XR lumbar spine 2-3V IMPRESSION: 1. Facet arthritis lower lumbar spine. 2. Mild multilevel lumbar spondylosis. Electronically signed by: Meredith Caldera MD 05/31/2024 11:38 AM EST I reviewed records from the following: PCP, ortho PT discharge summary: 11/03/2024: She is doing well with all exercises and is without pain. Still needs cues at times for speed as she tends to move quick. She is feeling better overall since start of care. She has no visits booked and would like to continue with her program at home vs in the clinic therefore we will d/c per her request. She knows to continue with her program to maintain all gains. Assessment & Plan Assessment & Plan (1) Sacroiliac joint dysfunction of both sides: Code(s): M53.3 - Sacrococcygeal disorders, not elsewhere classified Category: Medical (2) Lumbar facet joint pain: Code(s): M54.59 - Other low back pain Category: Medical (3) Myofascial pain: Code(s): M79.18 - Myalgia, other site Category: Medical Plan Appears that upper back/myofascial pain and cervicogenic headache has improved after PT. however she is complaining more of lower back pain that radiates around abdomen, but not lower extremities. Lumbar x-rays did show facet arthritis in the past which could be a cause for pain especially when associated with lifting/activity. No signs of lumbar radiculopathy or myelopathy on exam. There is tenderness over SI joints. With send for thoracic and hip x-rays today. Referring back to physical therapy to work on SI joint dysfunction. Assessment and plan discussed with patient, and patient was agreeable. All questions were answered thoroughly. Follow up 4-6 weeks. Jaclyn Sánchez MD, CED Board Certified, [place] Board of Physical Medicine and Rehabilitation (ABPMR) Board Certified, [place] Board of Electrodiagnostic Medicine (ABEM) Orders: Orders XR thoracic spine 2V Today M54.9 - Dorsalgia, unspecified PT Evaluation and Treatment Today M53.3 - Sacrococcygeal disorders, not elsewhere classified, M54.59 - Other low back pain XR hips RAMEZ min 3V Today M25.559 - Pain in unspecified hip Coding Level of Care Code Est Pt Level 4 (24676) Diagnoses Sacroiliac joint dysfunction of both sides M53.3 Lumbar facet joint pain M54.59 Myofascial pain M79.18
--- OUTSIDE RECORDS SUMMARY | 2024-12-01 09:00 | XMS_ITS | Encounter Summary ---
Author Organization [facility] Address [address] [facility] [address] [place] [address] Phone Care Team Providers Care Legal Billing Clerk Name Role Phone Michelle Marques MD Primary Care Provider + Encounter Details Date Type Department Care Team (Late st Contact Info) Description 06/26/2021 Procedure Pass [facility], [facility] [address] [place] [address] Social History Tobacco Use Types Packs/Day Years Used Date Smoking Tobacco: Never Smokeless Tobacco: Never Alcohol Use Standard Drinks/Week Comments Never 0 (1 standard drink = 0.6 oz pur e alcohol) Comments No Sex and Gender Information Value Date Recorded Sex Assigned at Not on file Legal Sex Female 9:28 PM EDT Gender Identity Not on file Sexual Orientation Not on file Occupation Industry Job Start Date Job End Date Working Not on file Not on file Not on file documented as of this encounter Plan of Treatment Not on file documented as of this encounter Visit Diagnoses Not on filedocumented in this encounter Care Teams Legal Billing Clerk Relationship Specialty Start Date End Date Michelle Marques MD [address] [place] [id number] PCP - General Family Medicine 09/16/20 documented as of this encounter Additional Source Comments The information contained in this document represents components of the legal health record. It is not the complete legal health record.[facility]
--- OUTSIDE RECORDS SUMMARY | 2024-12-01 09:00 | XMS_ITS | Clinical Summary ---
Author Organization 299 [facility] Address [address] [place] [address] Phone Care Team Providers Care Bee Robber Name Role Phone Rupinder Huerta MD Primary Care Provider + Encounters Date Type Department Care Team Description 11/28/2024 Lab Requisition [facility] - Main Lab [address] [facility] [place] [address] Rupinder Huerta MD Acute vaginitis from Last 3 Months Social History Tobacco [...] Influencers of Health Screening 06/11/2023 COVID-19 Vaccine ( - 2023-2 5 season) 2024 Influenza Vaccine (#1) 2025 Cervical Cancer Screening: P ap Smear [...] 5 Years) and At-Risk Patients (6 to 49 Years) Aged Out No longer eligi ble based on patient's age to complete this topic RSV Immunization Patients Un karrie 20 months Aged Out No longer eligible b ased on patient's age to complete this topic Varicella Vaccines Aged Out No longer eligible based on patient's age to complete this topic Procedures Procedure Name Priority Date/Time Associated Diagnosis Comments VAGINITIS PATHOGENS BY PCR Routine 11/28/2024 12:00 AM EDT Acute vaginitis PAP SMEAR Routine 08/11/2024 12:00 AM EDT Encounter for gynecological examination (general) (routine) without abnormal findings from Last 3 Months or Most Recently Relevant to Health Maintenance Results * Vaginitis pathogens molecular study (11/28/2024 12:00 AM EDT) Trichomonas vaginalis Negative Negative 11/29/2024 10:23 AM EDT [facility] Gardnerella vaginalis Negative Negative 11/29/2024 10:23 AM EDT [facility] Dory Species Negative Negative 10:23 AM EDT [facility] Swab Vaginal structure / Unknown 11/28/2024 11/28/2024 6:29 PM EDT us Rupinder Huerta MD LAB MICROBIOLOGY - GENER AL ORDERABLES Final Result [facility] [address] [place] [address], * Pap smear (08/11/2024 12:00 AM EDT) Interpretation Negative for intraepithelial lesion or malignancy 08/15/2024 8:50 AM EDT [facility] General Categorization Negative 08/15/2024 8:50 AM EDT [facility] Specimen Adequacy Satisfactory for evaluation 08/15/2024 8:50 AM EDT [facility] Pap Methodology Liquid Based Pap Test 08/15/2024 8:50 AM EDT [facility] Disclaimer The Pap test is a screening test which carries an inherent false negative rate. These test results should be correlated with the patient's clinical findings and history. This Pap test was processed using an automated screening system. Technical cytopathology services provided by [facility], at [address] [place] [address] (CLIA # [id number]/Kelsey Jarvis MD, Skin Specialist.) 08/15/2024 8:50 AM EDT [facility] Console Pap Interpretation Reported 08/15/2024 8:50 AM EDT [facility] Brushing/Spatula Vaginal structure / Unknown 08/11/2024 08/14/2024 6:21 AM EDT Rupinder Huerta MD LAB CYTOLOGY ORDERABLES Final Result [facility] [address] [place] [address], from Last 3 Months or Most Recently Relevant to Health Maintenance Insurance [employer] MED[employer] - [place] Care Teams Bee Robber Relationship Specialty Start Date End Date Rupinder Huerta MD [address] [phone] PCP - General Obstetrics and Gynecology 07/27/24
--- OUTSIDE RECORDS SUMMARY | 2024-12-01 09:00 | XMS_ITS | Data Portability ---
Author Organization [facility]EL [facility] [address] Address [address] [place] [address] Care Team Providers Care Senior Systems Engineer Name Role Phone VU ROSADO State Tested Nursing Assistant [phone] Assessment No assessment recorded. Plan of Treatment Reminders Order Date Submit Date Provider Last Modified By Organization Details Last Modified Time Details Appointments None record ed. Lab None record ed. Referral None record ed. Procedures None record ed. Surgeries None record ed. Imaging XR, chest, 1 view 023 07/11/19 [email or web address], [address] [place], [address], 10:38:32 Medication Orders None record ed. Patient TargetsNo targets recorded. Patient InstructionsNo instructions recorded. Reason for Referral None Reported. Results Created Date Observation Date Name Description Value Unit Range Abnormal Flag Note LastModifiedBy Organization Detail LastModifiedTime 07/11/19 23 07/11/2022 XR, chest , 1 view No observ ation record ed. [email or web address] [facility] [address] [place], [address], 07/11/2022 10:43:10 Result Notes None recorded. Procedures Surgical History Date Name Laterality Status Provider Name and Address Organization Details Recorded Time 07/11/2022 OC-Other completed TODD Sharif [facility] 07/11/2022 09:53:41 Imaging Results None recorded. Procedure Notes None recorded. Medical Equipment None [...] SNOMED-CT Code Diagnosis ICD10 Code Diagnosis Note [id number] [facility] [address] [place] [address] 08/09/2018 10:34:52 08/09/2018 12:19:38 [id number] [address] [place] [address] 05/27/2020 17:15:05 05/27/2020 18:41:36 [id number] Nathaniel Arcos NP [address] [place] [address] 07/11/2022 08:57:25 07/11/2022 10:38:31 Tuberculosis screening 981309015 Z11.1 Health Concerns Section Related Observation LastModified by Organization Detai ls LastModified Time None Recorded Concern Status LastModified by Organization Details LastModified Time None Recorded Advance Directives Directive None Recorded Payers Insurance Date Sequence Insurance Name Policy Number Policy Duron Covered Member ID Duron Member ID Guarantor Name [facility]/11[facility]20[facility] Kouakuo-Gno po 07/11/2022 1 [facility] (O) [id number] Tramaine Murphyopo [id number] Tramaine Kouakuo-Gno po 04/15/2022 [facility] O[facility]yn Episode No OBEpisode recorded.
[2024-12-01 09:07] VITALS: BMI 23.1
== END 2024-12-01 09:32 | disposition home or self-care (01) ==
LOC: HO.HOS 08:56
PROVIDERS: PCP Internal Medicine; Visit Provider Physical Medicine & Rehabilitation
DX: M53.3 Sacrococcygeal disorders, not elsewhere classified (principal); M54.59 Other low back pain; M79.18 Myalgia, other site
CPT/HCPCS: 99214

== ENCOUNTER → 2024-12-01 09:31 | Outpatient (BNV) | payer OTHER, SELFPAY | PROVIDERS: PCP Internal Medicine; Visit Provider Radiology Diagnostic Radiology | DX: M25.752 Osteophyte, left hip (principal); M54.9 Dorsalgia, unspecified | CPT/HCPCS: 72070; 73522 ==

== ENCOUNTER → 2024-12-07 16:25 | Outpatient (BNVA) | payer OTHER, SELFPAY | PROVIDERS: PCP Internal Medicine | DX: K57.92 Diverticulitis of intestine, part unspecified, without perforation or abscess without bleeding (principal) | CPT/HCPCS: 99212 ==

== ENCOUNTER → 2024-12-07 16:25 | Outpatient (AMB) | payer OTHER, SELFPAY ==
[2024-12-07 16:27] VITALS: BP 110/68; PULSE 74; TEMP 37; O2SAT 100; BMI 22.6
--- NOTE | 2024-12-07 16:27 | MHC.OFFWIV ---
Intake Vital Signs 12/07/24 16:27 Height 5 ft 6 in Weight 140 lb BMI 22.6 BP 110/68 Blood Pressure Location Rt brachial Position Sitting Pulse 74 Pulse Source Pulse Oximeter Temp 98.6 F Pulse Oximetry (%) 100 Oxygen Delivery Method Room Air Intake Visit Reasons: EP-body ache, nausea, chills Intake Note: presents with nausea for 3 weeks and bloating Patient Tobacco Use Status: Never used Tobacco Allergies Quinidine-Quinine Analogues (Cincho Allergy (Verified 12/07/24 16:32) itch Influenza vaccine Adverse Reaction (Severe, Uncoded 12/01/24 09:06) severe flu like symptoms dairy Adverse Reaction (Mild, Uncoded 12/01/24 09:06) Hives Do you need a note to return to daycare/school/sports/work: No HPI HPI Comments History of Present Illness Details History of Present Illness - The patient is a 49-year-old female presenting with persistent nausea and abdominal discomfort. - Nausea has been constant for three weeks, with no vomiting reported. - Abdominal pain is mild and accompanied by bloating and excessive burping. - Symptoms are exacerbated by eating, with no relief from dietary changes. - No diarrhea, constipation, or urinary symptoms reported. - Previous colonoscopy three years ago revealed diverticulosis and hemorrhoids, with a recommendation for a follow-up in ten years. - Recent visit to OBGYN showed no abnormalities on all testing done. Physical Exam General: Cooperative, healthy appearing, comfortable, no acute distress and well developed Orientation: Patient oriented x3 Limitations: No limitations Head: Normal to inspection Ears: Hearing grossly normal bilaterally Nose: Normal External nose present Face and sinus: Normal facial exam Eyes: Appearance normal, both eyes and all related structures Neck: Normal visual inspection and Yes full ROM Respiratory: Normal respiratory effort and able to speak in complete sentences. GI: soft, negative Damico's, negative McBurney's, TTP in LLQ Skin: No rashes or lesions noted Neuro: Patient oriented x3 Extremities: Normal to inspection [facility] Medical History Occipital neuralgia Gestational diabetes ARCHIBALD (headache) History of palpitations Surgical History History of myomectomy History of colonoscopy (~07/29/22) History of cholecystectomy History of delivery Social History Housing: House Alcohol intake: never Patient Tobacco Use Status: Never used Tobacco e-Cigarette/Vaping Use: Never Used Second Hand Smoke Exposure: No service: No Current occupational status: employed 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 - Initiate treatment for suspected diverticulitis with Augmentin, an antibiotic, to be taken twice daily for seven days. - Prescribe Zofran for nausea, to be taken as needed, with a limit of 10 tablets. - Consider H. pylori testing if symptoms persist despite treatment. - Advise follow-up if symptoms do not improve with current treatment plan. Patient was informed and verbally consented to the use of an ambient scribe for clinic note documentation during this visit. Medications: New amoxicillin-pot clavulanate 875-125 mg 1 tab PO Q12H 14 tabs 0RF ondansetron 4 mg PO Q8H PRN 10 tabs 0RF nausea and vomiting Coding Level of Care Code Est Pt Level 3 (87511) Diagnoses Diverticulitis K57.92
--- OUTSIDE RECORDS SUMMARY | 2024-12-07 16:27 | XMS_ITS | Encounter Summary ---
Author Organization [facility] Address [address] [facility] [address] [place] [address] Phone Care Team Providers Care Maintenance Parts Technician Name Role Phone Michelle Marques MD Primary Care Provider + Encounter Details Date Type Department Care Team (Late st Contact Info) Description 06/26/2021 Procedure Pass [facility], [facility] [address] [place] [address] Social History Tobacco Use Types Packs/Day Years [...] on filedocumented in this encounter Care Teams Maintenance Parts Technician Relationship Specialty Start Date End Date Michelle Marques MD [address] [place] [phone] PCP - General Family Medicine 09/16/20 documented as of this encounter Additional Source Comments The information contained in this document represents components of the legal health record. It is not the complete legal health record.[facility]
--- OUTSIDE RECORDS SUMMARY | 2024-12-07 16:27 | XMS_ITS | Clinical Summary ---
Author Organization 299 [facility] Address [address] [place] [address] Phone Care Team Providers Care Stretcher Leveler Operator Name Role Phone Rupinder Huerta MD Primary Care Provider + Encounters Date Type Department Care Team Description 11/28/[address] [facility] - Main Lab [address] [facility] [place] [address] Rupinder Huerta MD Acute vaginitis [...] series) 1994 Colorectal Cancer Screening: Colonoscopy 06/11/2023 HIV Screening 06/11/2023 Hepatitis C Screening 06/11/2023 Social Influencers of Health Screening 06/11/2023 COVID-19 Vaccine ( - 2023-2 5 season) 2024 Depression Screening 05/17/2024 Influenza Vaccine (#1) 2025 Cervical Cancer Screening: [...] vaginalis Negative Negative 11/29/2024 10:23 AM EDT [facility] Gardnerella vaginalis Negative Negative 11/29/2024 10:23 AM EDT [facility] Dory Species Negative Negative 10:23 AM EDT [facility] Swab Vaginal structure / Unknown 11/28/2024 11/28/2024 6:29 PM EDT us Rupinder Huerta MD LAB MICROBIOLOGY - GENER AL ORDERABLES Final Result [facility] [address] [place] [address], * Pap smear (08/11/2024 12:00 AM EDT) Interpretation Negative for intraepithelial lesion or malignancy 08/15/2024 8:50 AM EDT [facility] General Categorization Negative 08/15/2024 8:50 AM EDT [facility] Specimen Adequacy Satisfactory for evaluation 08/15/2024 8:50 AM EDT [facility] Pap Methodology Liquid Based Pap Test 08/15/2024 8:50 AM EDT [facility] Disclaimer The Pap test is a screening test which carries an inherent false negative rate. These test results should be correlated with the patient's clinical findings and history. This Pap test was processed using an automated screening system. Technical cytopathology services provided by [facility], at [address] [place] [address] (CLIA # [id number]/Kelsey Jarvis MD, Drywall Taper Helper.) 08/15/2024 8:50 AM EDT [facility] Console Pap Interpretation Reported 08/15/2024 8:50 AM EDT [facility] Brushing/Spatula Vaginal structure / Unknown 08/11/2024 08/14/2024 6:21 AM EDT Rupinder Huerta MD LAB CYTOLOGY ORDERABLES Final Result [facility] [address] [place] [address], from Last 3 Months or Most Recently Relevant to Health Maintenance Insurance [facility] MEDICA[facility] - [place] Care Teams Stretcher Leveler Operator Relationship Specialty Start Date End Date Rupinder Huerta MD [address] [phone] PCP - General Obstetrics and Gynecology 07/27/24
--- OUTSIDE RECORDS SUMMARY | 2024-12-07 16:27 | XMS_ITS | Data Portability ---
Author Organization [facility]EL [facility] [address] Address [address] [place] [address] Care Team Providers Care Pesticide Applicator Name Role Phone VU ROSADO Joint Filler [phone] Assessment No assessment recorded. Plan of Treatment Reminders Order Date Submit Date Provider Last Modified By Organization Details Last Modified Time Details Appointments None record ed. Lab None record ed. Referral None record ed. Procedures None record ed. Surgeries None record ed. Imaging XR, chest, 1 view 023 07/11/19 [email or web address] [facility], [address] [place], [address], 10:38:32 Medication Orders None record ed. Patient TargetsNo targets recorded. Patient InstructionsNo instructions recorded. Reason for Referral None Reported. Results Created Date Observation Date Name Description Value Unit Range Abnormal Flag Note LastModifiedBy Organization Detail LastModifiedTime 07/11/19 23 07/11/2022 XR, chest , 1 view No observ ation record ed. [email or web address] [facility] [address] [place], [address], 07/11/2022 10:43:10 Result Notes None recorded. Procedures [...] SNOMED-CT Code Diagnosis ICD10 Code Diagnosis Note [id number] [facility] [address] [place] [address] 08/09/2018 10:34:52 08/09/2018 12:19:38 [id number] [address] [place] [address] 05/27/2020 17:15:05 05/27/2020 18:41:36 [id number] Nathaniel Arcos NP [address] [place] [address] 07/11/2022 08:57:25 07/11/2022 10:38:31 Tuberculosis screening [id number] Z11.1 Health Concerns Section Related Observation LastModified by Organization Detai ls LastModified Time None Recorded Concern Status LastModified by Organization Details LastModified Time None Recorded Advance Directives Directive None Recorded Payers Insurance Date Sequence Insurance Name Policy Number Policy Duron Covered Member ID Duron Member ID Guarantor Name [facility] 07/11/2022 1 [facility] [id number] Tramaine Murphyopo [id number] Tramaine Kouakuo-Gno po 04/15/2022 [facility] OBG[facility] Episode No OBEpisode recorded.
== END ==
PROVIDERS: PCP Internal Medicine; Visit Provider Physician Assistant
DX: K57.92 Diverticulitis of intestine, part unspecified, without perforation or abscess without bleeding (principal)

== ENCOUNTER 2025-01-12 09:01 | Outpatient (AMB) | payer OTHER, SELFPAY ==
[2025-01-12 09:08] VITALS: BMI 23.1
--- NOTE | 2025-01-12 09:08 | MHC.OFFVIS ---
Vital Signs 01/12/25 09:08 Height 5 ft 6 in Weight 143 lb BMI 23.1 Intake Visit Reasons: OV- Radiculopathy, cervical region, B/L sides XRay Intake Note: Tramaine is a 49 year old female who presents today as a X Ray review 12/02/24 and follow up for radiculopathy, cervical region bilateral. At today's visit she reports no pain at this time, only that the pain increases at night time. Patient states that she brought this to physical therapy's attention and they are trying different exercises to help relieve the pain. Allergies Quinidine-Quinine Analogues (Cincho Allergy (Verified 01/12/25 09:12) itch Influenza vaccine Adverse Reaction (Severe, Uncoded 01/04/25 16:01) severe flu like symptoms dairy Adverse Reaction (Mild, Uncoded 01/04/25 16:01) Hives Medication List - Last Reconciled 01/12/25 by Jaclyn Sánchez MD amoxicillin-pot clavulanate 875-125 mg 1 tab PO Q12H atorvastatin 20 mg PO BEDTIME ferrous sulfate (Feosol) 325 mg PO DAILY multivitamin 1 tab PO DAILY ondansetron 4 mg PO Q8H PRN HPI Comments Details: Initially seen 08/25/2024 for cervicogenic headache, myofascial pain, underlying cervical spondylosis. Patient sent to physical therapy with good results. Reviewed discharge summary from physical therapy dated 11/03/2024. Upper back and headaches better. It depends on how she sleeps in bed. If she follows PT advise regarding, it might help. Last visit, she mentioned lower back pain. TS and hip xray was unremarkable, only mild left hip DJD. Didn't go to more PT but walked more for exercise. It helped her. 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 Patient was appropriately conversant and oriented. Good historian. Neurological: Neurologic examination of the upper and lower extremities was nonfocal with intact sensation, muscle stretch reflexes and without focal motor deficits. Gait is non-antalgic without loss of balance. Results Reviewed Results Reviewed: Ordering Physician: Jaclyn Menchaca Date of Service: 12/01/24 Procedure(s): XR thoracic spine 2V Accession Number(s): [id number] cc: Jaclyn Menchaca; Esteban Xiong MD~ CLINICAL HISTORY: M54.9 - Dorsalgia, unspecified 2 views thoracic spine Comparison: CR/SR - XR CERVICAL SPINE 2-3 VIEWS - 04/20/24 13:09 EST CR/SR - XR LUMBAR SPINE 2-3 VIEWS - 04/20/24 13:01 EST Findings: Normal vertebral body alignment. No acute fractures or dislocation. No significant degenerative change. Cholecystectomy clips are again seen within the right upper quadrant. IMPRESSION: No acute findings. This document has been electronically signed by: Fernando Mosley MD on 12/02/2024 09:26:27 Ordering Physician: Jaclyn Menchaca Date of Service: 12/01/24 Procedure(s): XR hips RAMEZ min 3V Accession Number(s): [id number] cc: Jaclyn Menchaca; Esteban Xiong MD~ CLINICAL HISTORY: M25.559 - Pain in unspecified hip Exam: AP and frog-leg lateral views of the bilateral hips. Comparison: None provided. Findings: Bony alignment of the hip joints is anatomic. No fracture or erosion. Minor osteophyte formation of the left lateral femoral head neck junction. Sacroiliac joints and pubic symphysis are unremarkable. Impression: No acute findings. Minor left hip DJD. This document has been electronically signed by: Fernando Mosley MD on 12/02/2024 09:26:14 Assessment & Plan Assessment & Plan (1) Myofascial pain: Code(s): M79.18 - Myalgia, other site Category: Medical Plan Upper back pain/headache improved with PT. We talked about adjustments to her pillow. Lower back pain improved with exercise. I am glad she is doing much better. She is doing her best to follow PT advise. We talked about changes in lifestyle to avoid exacerbation of pain. Assessment and plan discussed with patient, and patient was agreeable. All questions were answered thoroughly. May return for follow up in 6 months. Jaclyn Sánchez MD, CED Board Certified, [place] Board of Physical Medicine and Rehabilitation (ABPMR) Board Certified, [place] Board of Electrodiagnostic Medicine (ABEM) Coding Level of Care Code Est Pt Level 3 (06383) Diagnoses Myofascial pain M79.18
--- OUTSIDE RECORDS SUMMARY | 2025-01-12 09:53 | XMS_ITS | Clinical Summary ---
Author Organization [address] [facility] Address [address] [place] [address] Phone Care Team Providers Care Carpet Weaver Name Role Phone Rupinder Huerta MD Primary Care Provider + Encounters Date Type Department Care Team Description 11/28/2024 Lab Requisition [facility] - Main Lab [address] [facility] [place] [address] Rupinder Huerta MD Acute vaginitis [...] vaginalis Negative Negative 11/29/2024 10:23 AM EDT [facility] Gardnerella vaginalis Negative Negative 11/29/2024 10:23 AM EDT [facility] Dory Species Negative Negative 10:23 AM EDT [facility] Swab Vaginal structure / Unknown 11/28/2024 11/28/2024 6:29 PM EDT us Rupinder Huerta MD LAB MICROBIOLOGY - GENER AL ORDERABLES Final Result [facility] [address] [place] [address], * Pap smear (08/11/2024 12:00 AM EDT) Interpretation Negative for intraepithelial lesion or malignancy 08/15/2024 8:50 AM EDT [facility] General Categorization Negative 08/15/2024 8:50 AM EDT [facility] Specimen Adequacy Satisfactory for evaluation 08/15/2024 8:50 AM EDT [facility] Pap Methodology Liquid Based Pap Test 08/15/2024 8:50 AM EDT [facility] Disclaimer The Pap test is a screening test which carries an inherent false negative rate. These test results should be correlated with the patient's clinical findings and history. This Pap test was processed using an automated screening system. Technical cytopathology services provided by [facility], at [address] [place] [id number] (CLIA # [id number]/Kelsey Jarvis MD, Forestry Extension Specialist.) 08/15/2024 8:50 AM EDT [facility] Console Pap Interpretation Reported 08/15/2024 8:50 AM EDT [facility] Brushing/Spatula Vaginal structure / Unknown 08/11/2024 08/14/2024 6:21 AM EDT Rupinder Huerta MD LAB CYTOLOGY ORDERABLES Final Result [facility] [address] [place] [address], from Last 3 Months or Most Recently Relevant to Health Maintenance Insurance [facility] MEDICA[facility] - [place] Care Teams Carpet Weaver Relationship Specialty Start Date End Date Rupinder Huerta MD [address] [id number] PCP - General Obstetrics and Gynecology 07/27/24
--- OUTSIDE RECORDS SUMMARY | 2025-01-12 09:53 | XMS_ITS | Encounter Summary ---
Author Organization [facility] Address [address] [facility] [address] [place] [address] Phone Care Team Providers Care Fiberglass Technician Name Role Phone Michelle Marques MD Primary Care Provider + Encounter Details Date Type Department Care Team (Late st Contact Info) Description 07/21/2021 Procedure Pass [facility], [address] [address] Social History Tobacco Use Types Packs/Day Years [...] on filedocumented in this encounter Care Teams Fiberglass Technician Relationship Specialty Start Date End Date Michelle Marques MD [address] [place] [phone] PCP - General Family Medicine 09/16/20 documented as of this encounter Additional Source Comments The information contained in this document represents components of the legal health record. It is not the complete legal health record.[facility]
--- OUTSIDE RECORDS SUMMARY | 2025-01-12 09:53 | XMS_ITS | Encounter Summary ---
Author Organization [facility] Address [address] [facility] [address] [place] [address] Phone Care Team Providers Care Patch Setter Name Role Phone Michelle Marques MD Primary Care Provider + Encounter Details Date Type Department Care Team (Late st Contact Info) Description 06/26/2021 Procedure Pass [facility], [facility] [address] [place] [address] Social History Tobacco Use Types Packs/Day Years [...] on filedocumented in this encounter Care Teams Patch Setter Relationship Specialty Start Date End Date Michelle Marques MD [address] [place] [id number] PCP - General Family Medicine 09/16/20 documented as of this encounter Additional Source Comments The information contained in this document represents components of the legal health record. It is not the complete legal health record.[facility]
--- OUTSIDE RECORDS SUMMARY | 2025-01-12 09:53 | XMS_ITS | Encounter Summary ---
Author Organization [facility] Address [address] [facility] [address] [place] [address] Phone Care Team Providers Care Innersole Fitter Name Role Phone Michelle Marques MD Primary Care Provider + Encounter Details Date Type Department Care Team (Late st Contact Info) Description 07/21/2021 Ancillary Orders [facility] [address] [place] [address] Daron Clemente MD [address] [facility], [address] [place] [address] [email or web address] Pain of both breasts Social History Tobacco Use Types Packs/Day Years [...] on file documented as of this encounter Results * BI US BREAST LIMITED (BILATERAL) (07/23/2021 9:31 AM EST) Anatomical Region Laterality Modality Breast Left, Breast Right, Breast Bilateral Bila teral Ultrasound 07/23/2021 8:27 AM EST Impressions 07/23/2021 9:25 AM EST RIGHT BREAST: 1. No mammographic or sonographic abnormality at the location of the pain in the upper-outer quadrant. Clinical follow-up is recommended. 2. Approximately 1.0 cm focal asymmetry in the lower outer quadrant of the right breast at 4 to 8 cm from the nipple. No sonographic correlate seen. Findings are probably benign. A six-month follow-up mammogram and ultrasound are recommended. LEFT BREAST: Negative, no evidence of malignancy. Clinical follow-up recommended for the concern of focal pain. Normal interval follow-up mammogram is recommended in 12 months. Bi-RADS: BI-RADS CATEGORY: 3 - Probably benign finding. Short interval follow up suggested. DENSITY: There are scattered fibroglandular densities. RIGHT RECOMMENDATION DUE DATE: 6 Months Recommendation: Right short interval follow-up LEFT RECOMMENDATION DUE DATE: 12 Months Recommendation: Left Mammography Screening Narrative 07/23/2021 9:25 AM EST History: Bilateral mastodynia. According to the patient, the pain is located in the upper-outer quadrant of both breasts. STUDIES: 1.Bilateral diagnostic mammography with tomosynthesis and CAD 2.Targeted ultrasound of the right breast 3.Targeted ultrasound of the left breast TECHNIQUE: Bilateral full-field digital diagnostic mammography is obtained and read in conjunction with computer-aided detection. Tomosynthesis as well as 2-D C view imaging were obtained. COMPARISON: None. This is a baseline study. BREAST COMPOSITION: There are scattered areas of fibroglandular density RIGHT BREAST: - There is an approximately 1.0 cm focal asymmetry in the lower outer quadrant of the right breast at approximately 4 to 8 cm from the nipple (best seen on the tomosynthesis spot MLO 27/60 and tomosynthesis spot CC 27/55). - No significant masses at the location of the pain in the upper-outer quadrant. No suspicious calcifications or other abnormalities are seen. Targeted ultrasound of the right breast are performed at the following locations: - Location of the mammographic finding in the lower outer quadrant. The survey did not show correlating sonographic abnormalities in the lower outer quadrant. - Location of the pain in the upper-outer quadrant. No sonographic abnormalities seen during the survey. LEFT BREAST: No significant masses, suspicious calcifications or other abnormalities are seen. In particular, no suspicious mammographic findings at location of the pain in the upper-outer quadrant. Daron Clemente MD [facility] BREAST Final Result documented in this encounter Visit Diagnoses Diagnosis Pain of both breasts Pain of both breasts documented in this encounter Care Teams Innersole Fitter Relationship Specialty Start Date End Date Michelle Marques MD [address] [place] [phone] [email or web address] PCP - General Family Medicine 09/16/20 documented as of this encounter Additional Source Comments The information contained in this document represents components of the legal health record. It is not the complete legal health record[facility]
--- OUTSIDE RECORDS SUMMARY | 2025-01-12 09:54 | XMS_ITS | Clinical Summary ---
Author Organization [facility] Address [address] [facility] [address] [place] [address] Phone Care Team Providers Care Grocery Clerk Selling Name Role Phone Michelle Marques MD Primary Care Provider + Allergies Active Allergy Reactions Criticality Noted Date Comments Quinine Sulfate Hives Low 06/10/2020 Medications cholecalciferol (VITAMIN D3) 400 unit tablet Take 400 Units by mouth daily. Active multivit-minerals /folic acid (WOMEN'S MULTIVITAMIN GUMMIES ORAL) Take by mouth. Active Active Problems Problem Noted Date Diagnosed Date Fibroids, submucosal Irregular bleeding Endometrial polyp Immunizations Immunization Administration Dates Next Due INFLUENZA, SPLIT VIRUS, TRIVALENT W/ PRESERVATIV E IM 05/02/2014,05/24/2012 Tdap 08/17/2014,07/12/2012 Family History Medical History Relation Comments No Known Problems Mother Relation Status Comments Brother Alive Father Mother Sister Alive Social History Tobacco Use Types Packs/Day Years Used Date Smoking Tobacco: Never Smokeless Tobacco: Never Alcohol Use Standard Drinks/Week Comments Never 0 (1 standard drink = 0.6 oz pur e alcohol) Education Answer Date Recorded Are you interested in more education? Not on andrew e 09/11/2022 Are you concerned about learning? Not on file 09/11/2022 No 09/11/2022 No 09/11/2022 Digital Access Answer Date Recorded No 10/09/2022 No 10/09/2022 Reliable internet access at home? Not on file 10/09/2022 Device with a working camera? Not on file Comments No Sex and Gender Information Value Date Recorded Sex Assigned at Not on file Legal Sex Female 9:28 PM EDT Gender Identity Not on file Sexual Orientation Not on file Occupation Industry Job Start Date Job End Date Working Not on file Not on file Not on file Last Filed Vital Signs Vital Sign Reading Time Taken Comments Blood Pressure 92/60 08/22/2021 11:45 AM EDT Pulse 69 08/08/2021 10:01 AM EDT Temperature 36.4 C (97.5 F) 08/08/2021 12:15 PM EDT Respiratory Rate 20 08/08/2021 10:01 AM EDT Oxygen Saturation 100% 08/08/2021 12:15 PM EDT Inhaled Oxygen Concentration - - Weight 69.1 kg (152 lb 6.4 oz) 08/22/2021 11:45 AM EDT Height 167.6 cm (5' 6 ) 08/22/2021 11:45 AM EDT Body Mass Index 24.6 08/22/2021 11:45 AM EDT Plan of Treatment Health Maintenance Due Date Last Done Comments LIPID PANEL 1975 DEPRESSION SCREENING 1987 HEPATITIS C SCREENING 1993 HIV ONE-TIME SCREENING (18-6 5 YEARS) 1993 COLOGUARD 2020 COLONOSCOPY 2020 COLORECTAL CANCER SCREENING 2020 FIT TEST 2020 FOBT 2020 SIGMOIDOSCOPY 2020 VIRTUAL COLONOSCOPY 2020 PAP SMEAR 06/13/2023 06/13/2020 MAMMOGRAM 07/24/2023 07/23/2021 COVID-19 VACCINE (1 - 2023-2 5 season) 2024 Adult Td,Tdap Booster 08/17/2024 08/17/2014 , 07/12/2012 SMOKING STATUS SCREENING (On ce After 26 Yrs) Completed 08/01/2021 HEPATITIS A VACCINES Aged Out No long er eligible based on patient's age to complete this topic HIB VACCINES Aged Out No longer eligi ble based on patient's age to complete this topic MENINGOCOCCAL VACCINES (ACWY) Aged Out No longer eligible based on patient's age to complete this topic MENINGOCOCCAL VACCINES (B) Aged Out N o longer eligible based on patient's age to complete this topic PNEUMOCOCCAL VACCINES (0-49 years) Aged Out No longer eligible b ased on patient's age to complete this topic Medical Devices Not on file Procedures Procedure Name Priority Date/Time Associated Diagnosis Comments BI MAMMOGRAM DIAGNOSTIC WITH TOMOSYNTHESIS WITH CAD (BILATERAL) Routine 07/23/2021 8:42 AM EST Bilateral mastodynia PAP TEST Routine 06/13/2020 12:00 AM EST from Last 3 Months or Most Recently Relevant to Health Maintenance Results * BI MAMMOGRAM DIAGNOSTIC WITH TOMOSYNTHESIS WITH CAD (BILATERAL) (07/23/2021 8:42 AM EST) Anatomical Region Laterality Modality Breast Left, Breast Right, Breast Bilateral Bila teral Mammography 07/23/2021 8:27 AM EST Impressions 07/23/2021 9:25 [...] of the pain in the upper-outer quadrant. Procedure Note Diane Painter MD - 07/23/2021 History: Bilateral mastodynia. According to the patient, the pain islocated in the upper-outer quadrant of both breasts. STUDIES: 1.Bilateral diagnostic mammography with tomosynthesis and CAD 2.Targeted ultrasound of the right breast 3.Targeted ultrasound of the left breast TECHNIQUE: Bilateral full-field digital diagnostic mammography is obtainedand read in conjunction with computer-aided detection. Tomosynthesis aswell as 2-D C view imaging were obtained. COMPARISON: None. This is a baseline study. BREAST COMPOSITION: There are scattered areas of fibroglandulardensity RIGHT BREAST: - There is an approximately 1.0 cm focal asymmetry in the lower outerquadrant of the right breast at approximately 4 to 8 cm from the nipple(best seen on the tomosynthesis spot MLO 27/60 and tomosynthesis spot CC27/55). - No significant masses at the location of the pain in the upper-outerquadrant. No suspicious calcifications or other abnormalities are seen. Targeted ultrasound of the right breast are performed at the followinglocations: - Location of the mammographic finding in the lower outer quadrant. Thesurvey did not show correlating sonographic abnormalities in the lowerouter quadrant. - Location of the pain in the upper-outer quadrant. No sonographicabnormalities seen during the survey. LEFT BREAST: No significant masses, suspicious calcifications or otherabnormalities are seen. In particular, no suspicious mammographic findingsat location of the pain in the upper-outer quadrant. IMPRESSION: RIGHT BREAST: 1. No mammographic or sonographic abnormality at the location of the painin the upper-outer quadrant. Clinical follow-up is recommended. 2. Approximately 1.0 cm focal asymmetry in the lower outer quadrant of theright breast at 4 to 8 cm from the nipple. No sonographic correlate seen.Findings are probably benign. A six-month follow-up mammogram andultrasound are recommended. LEFT BREAST: Negative, no evidence of malignancy. Clinical follow-uprecommended for the concern of focal pain. Normal interval follow-upmammogram is recommended in 12 months. Bi-RADS: BI-RADS CATEGORY: 3 - Probably benign finding. Short intervalfollow up suggested. DENSITY: There are scattered fibroglandular densities. RIGHT RECOMMENDATION DUE DATE: 6 Months Recommendation: Right short interval follow-up LEFT RECOMMENDATION DUE DATE: 12 Months Recommendation: Left Mammography Screening Daron Clemente MD IMG MG EXAMS Final Result * Pap Smear (06/13/2020 12:00 AM EST) 06/13/2020 06/14/2020 9:0 4 AM EST Narrative SEE NARRATIVE - 2020 9:04 AM EST [address] [address] Master Technician: Lucy Aly MD VEHICLE REFINISHER Cytology Report FINAL DIAGNOSIS A. PAP SMEAR (SUREPATH) CE: SPECIMEN ADEQUACY: Satisfactory for evaluation; transformation zone present. INTERPRETATION: NEGATIVE FOR INTRAEPITHELIAL LESION OR MALIGNANCY. Electronically Signed Out By: Scott Nair CT(ASCP) Suhas Henderson, CT(ASCP) The Pap test is a screening test primarily for squamous cancers and precursors and has associated false-negative and false-positive results. New technologies such as liquid-based preparations may decrease but will not eliminate all false-negative results. Regular sampling and follow-up of unexplained clinical signs and symptoms are recommended to minimize false negative results. PROCEDURES/ADDENDA HPV Testing (Requested) Ordered Date: 06/14/2020 A. PAP SMEAR (SUREPATH) CE: Human Papilloma Virus Test Negative for high-risk human papillomavirus types 16, 18, 45 and the Other high risk probe set (Includes 31, 33, 35, 39, 51, 52, 56, 58, 59, 66, 68) by [employer] Onclarity HR-HPV analysis. Clinical correlation is advised. This HPV test was performed at [facility], [address] [place] [address]. This test has been FDA approved for SurePath cervical cytology specimens. The accuracy and precision of this test for all other specimen sources has been verified in the Cytopathology Laboratory of the [facility] and has not been cleared or approved by the U.S. Food and Drug Administration. Clinical correlation is advised. CLINICAL HISTORY Date of Last Menstrual Period: 06-13-2020 Menstrual History: Bleeding, Abnormal: VAGINAL Other Clinical Conditions: Screening Pap SPECIMEN SOURCE A: PAP SMEAR (SUREPATH) CE Patient Name: TRAMAINE MCRAE : 1975 (Age: 44) Sex: F Institution: [facility] Location: [facility] Date of Collection: 06/13/2020 Date of Reported: 2020 09:04 Results to: Daron Clemente MD, BS us Daron Clemente MD CYTOLOGY ORDERABLES Final Res ult SEE NARRATIVE from Last 3 Months or Most Recently Relevant to Health Maintenance Insurance HEALTH SAFETY NET FULL [facility] NET FULL [facility] [employer] NON NSPG PCP S[employer]VER [employer] [facility] SAFETY NET FULL [facility] [place] NON [place]SPG PCP S[employer] SAFETY NET FULL Member Subscriber Plan / Payer (Ef fective 2017-Present) Name:Tramaine Mcrae Relation to Subscriber:Self Name:Tramaine Mcrae Payer ID:Not on file Group ID:Not on file Type:Medicaid Address: [address] [facility] NON NSPG PCP [facility] NET FULL Member Subscriber Plan / Payer (Ef fective 2017-Present) Name:Tramaine Mcrae Relation to Subscriber:Self Name:Tianna Mcraesukhwinder Payer ID:Not on file Group ID:Not on file Type:Medicaid Address: [address] [facility] NET FULL Member Subscriber Plan / Payer (Ef fective 2017-Present) Name:Tramaine Mcrae Relation to Subscriber:Self Name:JoseTramaine Patterson Payer ID:Not on file Group ID:Not on file Type:Medicaid Address: [address] [employer] NON NSPG PCP [employer] SAFETY NET FULL [facility] WE[employer]ENSE NON NSPG PCP S[employer] [facility] [place] [address] [facility] NON NSP PCP S[employer] [facility] HEALTH SAFET[facility] NET FULL [facility] PCP RADHA CLEMENS [facility] Advance Directives For more information, please contact: [phone] (9AM - 5PM [facility], Wednesday-Wednesday) Documents on File Type Date Recorded Patient Literary Agent Expl anation Healthcare Proxy 10/01/2020 4:53 PM * Full Code (Latest Code Status on File) Date Activated Date Inactivated Comments 08/08/2021 9:48 AM Question Answer Comments Code Status Confirmed With: Patient * Full Code Date Activated Date Inactivated Comments 09/27/2020 12:11 PM 08/08/2021 9:48 AM Question Answer Comments Code Status Confirmed With: Patient Care Teams Grocery Clerk Selling Relationship Specialty Start Date End Date Michelle Marques MD [address] [place] [id number] [email or web address] PCP - General Family Medicine 09/16/20 Additional Source Comments The information contained in this document represents components of the legal health record. It is not the complete legal health record.[facility]
--- OUTSIDE RECORDS SUMMARY | 2025-01-12 09:54 | XMS_ITS | Encounter Summary ---
Author Organization [facility] Address [address] [facility] [facility] [address] [place] [address] Phone Care Team Providers Care Turning Lathe Tender Name Role Phone Michelle Marques MD Primary Care Provider + Encounter Details Date Type Department Care Team (Late st Contact Info) Description 09/27/2020 Procedure Pass OR Admitting Dept - Virtual Department [address] [place] [address] Social History Tobacco Use Types Packs/Day Years [...] on filedocumented in this encounter Care Teams Turning Lathe Tender Relationship Specialty Start Date End Date Michelle Marques MD [address] [place] [phone] PCP - General Family Medicine 09/16/20 documented as of this encounter Additional Source Comments The information contained in this document represents components of the legal health record. It is not the complete legal health record.[facility]
--- OUTSIDE RECORDS SUMMARY | 2025-01-12 09:54 | XMS_ITS | Encounter Summary ---
Author Organization [facility] Address [address] [place] [phone] Care Team Providers Care Corral Boss Name Role Phone Rupinder Huerta MD Primary Care Provider + Encounter Details Date Type Department Care Team (Latest Contact Info) Description 07/27/2024 Lab Requisition [facility] - Main Lab [address] [facility] [place] [phone] Rupinder Huerta MD [address] [facility] [address] [place] [address] Encounter for screening for infections [...] reflex microscopic (07/27/2024 12:00 AM EDT) Specific [place] Urine 1.006 1.003 - 1.030 LAB URINALYSIS - AUTOMATED METHOD 07/27/2024 7:14 PM [facility] pH, Urine 8.0 5.0 - 8.0 pH LAB URINALYSIS - AUTOMATED METHOD 07/27/2024 7:14 PM [facility] Leukocytes, Urine Negative Negative LAB URINALYSIS - AUTOMATED METHOD 07/27/2024 7:14 PM [facility] Nitrite, Urine Negative Negative LAB URINALYSIS - AUTOMATED METHOD 07/27/2024 7:14 PM [facility] Protein, Urine Negative <=Trace mg/dL LAB URINALYSIS - AUTOMATED METHOD 07/27/2024 7:14 PM [facility] Glucose, Urine Negative Negative mg/dL LAB URINALYSIS - AUTOMATED METHOD 07/27/2024 7:14 PM [facility] Ketones, Urine Negative Negative mg/dL LAB URINALYSIS - AUTOMATED METHOD 07/27/2024 7:14 PM [facility] Urobilinogen, Urine 0.2 0.2 - [...] ORDERABLES Fin al Result Performing Organization Address City/[facility]/ZIP Co de Phone Number [facility] [address] [place] [address], [place] [phone] * Culture urine (07/27/2024 12:00 AM EDT) Culture, Urine No growth 07/28/2024 2:28 PM EDT [facility] Urine Urine specimen obtained by clean catch procedure / Unknown 07/27/2024 07/27/2024 6:04 PM EDT us Rupinder Huerta MD LAB MICROBIOLOGY - GENER AL ORDERABLES Final Result [facility] [address] [place] [address], [place] [phone] * Vaginitis pathogens molecular study (07/27/2024 12:00 [...] AL ORDERABLES Final Result Performing Organization Address City/[facility]/ZIP Co de Phone Number [facility] [address] [place] [address], [place] [phone] * Chlamydia trachomatis and Neisseria gonorrhoeae molecular study (07/27/2024 12:00 AM EDT) Pathologist [facility] Neisseria gonorrhoeae PCR Negative Negative LAB MOLECULAR DIAGNOSTICS METHOD 07/28/2024 10:56 AM EDT [facility] Chlamydia trachomatis PCR Negative Negative LAB MOLECULAR DIAGNOSTICS METHOD 07/28/2024 10:56 AM EDT [facility] Swab Cervix uteri structure / Unknown 07/27/2024 07/27/2024 6:04 PM EDT Rupinder Huerta MD LAB MICROBIOLOGY - GENER AL ORDERABLES Final Result Performing Organization Address City/[facility]/ZIP Co de Phone Number [facility] [address] [place] [address], [place] [phone] documented in this encounter Visit Diagnoses Diagnosis Encounter for screening for infections with a predominantly sexual mode of transmission Renal tubulo-interstitial disorders in diseases classified elsewhere Urinary tract infection, site not specified documented in this encounter Care Teams Corral Boss Relationship Specialty Start Date End Date Rupinder Huerta MD [address] [phone] PCP - General Obstetrics and Gynecology 07/27/24 documented as of this encounter
--- OUTSIDE RECORDS SUMMARY | 2025-01-12 09:54 | XMS_ITS | Encounter Summary ---
Author Organization [facility] Address [address] [facility] [address] [place] [address] Phone Care Team Providers Care Transmission Builder Name Role Phone Michelle Marques MD Primary Care Provider + Encounter Details Date Type Department Care Team (Late st Contact Info) Description 12/08/2021 Transcribe Orders Virtual Department [address] [place] [address] Esteban Xiong MD [address] [address] Encounter for screening mammogram for malignant neoplasm of breast (Primary Dx) Social History Tobacco Use Types Packs/Day Years [...] documented as of this encounter Visit Diagnoses Diagnosis Encounter for screening mammogram for malignant neoplasm of breast- Primary documented in this encounter Care Teams Transmission Builder Relationship Specialty Start Date End Date Michelle Marques MD [address] [place] [phone] PCP - General Family Medicine 09/16/20 documented as of this encounter Additional Source Comments The information contained in this document represents components of the legal health record. It is not the complete legal health record.[facility]
--- OUTSIDE RECORDS SUMMARY | 2025-01-12 09:54 | XMS_ITS | Encounter Summary ---
Author Organization [facility] Address [address] [facility] [address] [place] [address] Phone Care Team Providers Care Meat Service Team Member Name Role Phone Michelle Marques MD Primary Care Provider + Encounter Details Date Type Department Care Team (Late st Contact Info) Description 08/08/2021 Procedure Pass OR Admitting Dept - Virtual Department [address] [place] [address] Social History Tobacco Use Types Packs/Day Years [...] on filedocumented in this encounter Care Teams Meat Service Team Member Relationship Specialty Start Date End Date Michelle Marques MD [address] [place] [phone] PCP - General Family Medicine 09/16/20 documented as of this encounter Additional Source Comments The information contained in this document represents components of the legal health record. It is not the complete legal health record.[facility]
--- OUTSIDE RECORDS SUMMARY | 2025-01-12 09:54 | XMS_ITS | Encounter Summary ---
Author Organization [facility] Address [address] [place] [phone] Care Team Providers Care Senior Account Representative Name Role Phone Rupinder Huerta MD Primary Care Provider + Encounter Details Date Type Department Care Team (Latest Contact Info) Description 08/14/[address] [facility] - Main Lab [address] [place] [phone] Rupinder Huerta MD [address] [phone] Encounter for gynecological examination (general) [...] lesion or malignancy 08/15/2024 8:[address] [facility] General Categorization Negative 08/15/2024 8:[address] [facility] Specimen Adequacy Satisfactory for evaluation 08/15/2024 8:[address] [facility] Pap Methodology Liquid Based Pap Test 08/15/2024 8:[address] [facility] Disclaimer The Pap test is a screening test which carries an inherent false negative rate. These test results should be correlated with the patient's clinical findings and history. This Pap test was processed using an automated screening system. Technical cytopathology services provided by [facility], at [address] [place] [phone] (CLIA # [id number]/Kelsey Jarvis MD, Gear Hobber Operator.) 08/15/2024 8:[address] [facility] Console Pap Interpretation Reported 08/15/2024 8:[address] [facility] Brushing/Spatula Vaginal structure / Unknown 08/11/2024 08/14/2024 6:21 AM EDT us Rupinder Huerta MD LAB CYTOLOGY ORDERABLES Final Result [facility] [address] [place] [address], documented in this encounter Visit Diagnoses Diagnosis Encounter for gynecological examination (general) (routine) without abnormal findings documented in this encounter Care Teams Senior Account Representative Relationship Specialty Start Date End Date Rupinder Huerta MD [address] [phone] PCP - General Obstetrics and Gynecology 07/27/24 documented as of this encounter
--- OUTSIDE RECORDS SUMMARY | 2025-01-12 09:54 | XMS_ITS | Encounter Summary ---
Author Organization [facility] Address [address] [facility] [address] [place] [address] Phone Care Team Providers Care Manager Law Name Role Phone Michelle Marques MD Primary Care Provider + Pcp, Unknown Primary Care Provider Michelle Tomas MD Primary Care Provider + Encounter Details Date Type Department Care Team (Late st Contact Info) Description 08/27/2017 Ancillary Orders [facility], X-Ray - [address] [place] [address] System, Provider [place] In, [place] [address] Chest pain, unspecified type Social History Tobacco Use Types Packs/Day Years Used Date Smoking Tobacco: Never Assessed Comments Unknown Sex and Gender Information Value Date Recorded Sex Assigned at Not on file Legal Sex Female 9:28 PM EDT Gender Identity Not on file Sexual Orientation Not on file documented as of this encounter Plan of Treatment Not on file documented as of this encounter Results * XR CHEST PA AND LATERAL 2 VIEWS (08/27/2017 11:19 AM EDT) Anatomical Region Laterality Modality Chest Radiographic Kierra ging 08/27/2017 11:2 3 AM EDT Impressions 08/27/2017 11:24 AM EDT No acute chest disease. POS - [id number] Narrative 08/27/2017 11:24 AM EDT HISTORY: As above. COMPARISON: 11/27/2013. CHEST RADIOGRAPH FINDINGS: 2 views obtained. Heart and mediastinum are normal. Lungs are clear. No acute soft tissue or bony findings. Procedure Note Dick Purvis MD - 08/27/2017 HISTORY: As above. COMPARISON: 11/27/2013. CHEST RADIOGRAPH FINDINGS: 2 views obtained. Heart and mediastinum are normal. Lungs are clear. Noacute soft tissue or bony findings. IMPRESSION: No acute chest disease. POS - [id number] us Provider Not In System PhD IMG XR CHEST Final Result documented in this encounter Visit Diagnoses Diagnosis Chest pain, unspecified type Chest pain, unspecified type documented in this encounter Care Teams Manager Law Relationship Specialty Start Date End Date Michelle Marques MD [address] [place] [phone] [email or web address] PCP - General 03/02/17 06/05/20 Pcp, Unknown PCP - General 06/06/20 09/15/20 Michelle Marques MD [address] [place] [phone] PCP - General Family Medicine 09/16/20 documented as of this encounter Additional Source Comments The information contained in this document represents components of the legal health record. It is not the complete legal health record.[facility]
--- OUTSIDE RECORDS SUMMARY | 2025-01-12 09:54 | XMS_ITS | Encounter Summary ---
Author Organization [facility] Address [address] [place] [phone] Care Team Providers Care Clinical Rehab Specialist Name Role Phone Rupinder Huerta MD Primary Care Provider + Encounter Details Date Type Department Care Team (Late st Contact Info) Description 11/28/2024 Lab Requisition [facility] - Main Lab [address] [place] [phone] Rupinder Huerta MD 299 [facility] [address] [place] [address] Acute vaginitis Social History Tobacco Use Types Packs/Day Years [...] Routine 11/28/2024 12:00 AM EDT Acute vaginitis documented in this encounter Results * Vaginitis pathogens molecular study (11/28/2024 12:00 AM EDT) Trichomonas vaginalis Negative Negative 11/29/2024 10:23 AM EDT [facility] Gardnerella vaginalis Negative Negative 11/29/2024 10:23 AM EDT [facility] Dory Species Negative Negative 10:23 AM T [facility] Swab Vaginal structure / Unknown 11/28/2024 11/28/2024 6:29 PM EDT Rupinder Huerta MD LAB MICROBIOLOGY - GENER AL ORDERABLES Final Result [facility] [address] [place] [address], documented in this encounter Visit Diagnoses Diagnosis Acute vaginitis Unspecified vaginitis and vulvovaginitis documented in this encounter Care Teams Clinical Rehab Specialist Relationship Specialty Start Date End Date Rupinder Huerta MD [address] [phone] PCP - General Obstetrics and Gynecology 07/27/24 documented as of this encounter
--- OUTSIDE RECORDS SUMMARY | 2025-01-12 09:54 | XMS_ITS | Encounter Summary ---
Author Organization [facility] Address [address] [facility] [address] [place] [address] Phone Care Team Providers Care Case Checker Name Role Phone Michelle Marques MD Primary Care Provider + Pcp, Unknown Primary Care Provider Michelle Tomas MD Primary Care Provider + Encounter Details Date Type Department Care Team (Late st Contact Info) Description 07/26/[address] [facility] [address] [place] [address] [address] [place] [address] System, Provider Not In, PhD Partners [address] [address] Gestational diabetes mellitus (GDM), antepartum, gestational diabetes method of control unspecified (Primary Dx) Social History Tobacco Use Types [...] documented as of this encounter Results * Hemoglobin A1c (07/26/2017 10:13 AM EDT) HEMOGLOBIN A1C 5.7 4.3 - 5.8 % [facility] Blood 07/26/2017 10:1 3 AM EDT 07/26/2017 10:17 AM EDT us Provider Not In System PhD LAB BLOOD ORDERABLES Final Result [address] [address] * Basic metabolic panel (07/26/2017 10:13 AM EDT) SODIUM 137 133 - 146 mmol/L [facility] CHLORIDE 101 96 - 108 mmol/L [facility] POTASSIUM 4.0 3.3 - 5.1 mmol/L [facility] CO2 27 21 - 35 mmol/L [facility] BUN 12 6 - 19 mg/dL [facility] CREATININE 0.50 0.5 - 1.5 mg/dL [facility] GLUCOSE 93 70 - 99 mg/dL [facility] CALCIUM 9.1 8.4 - 10.3 mg/dL [facility] EGFR 119 >59 mL/min/1.7 3m2 [facility] Comment:If patient is black, multiply result by 1.159. The eGFR calculation has changed from the MDRD equation to the CKD-EPI equation as of July 20, 2017. ANION GAP 13 10 - 20 mmol/L [facility] Blood 07/26/2017 10:1 3 AM EDT 07/26/2017 10:17 AM EDT us Provider Not In System PhD LAB BLOOD ORDERABLES Final Result [address] [address] documented in this encounter Visit Diagnoses Diagnosis Gestational diabetes mellitus (GDM), antepartum, gestational diabetes method of control unspecified- Primary documented in this encounter Care Teams Case Checker Relationship Specialty Start Date End Date Michelle Marques MD [address] [place] [phone] PCP - General 03/02/17 06/05/20 Pcp, Unknown PCP - General 06/06/20 09/15/20 Michelle Marques MD [address] [place] [phone] [email or web address] PCP - General Family Medicine 09/16/20 documented as of this encounter Additional Source Comments The information contained in this document represents components of the legal health record. It is not the complete legal health record.[facility]
== END 2025-01-12 09:40 | disposition home or self-care (01) ==
LOC: HO.HOS 09:02
PROVIDERS: PCP Internal Medicine; Visit Provider Physical Medicine & Rehabilitation
DX: M79.18 Myalgia, other site (principal)
CPT/HCPCS: 99213

== ENCOUNTER → 2025-01-12 09:01 | Outpatient (BNVA) | payer OTHER, SELFPAY | PROVIDERS: PCP Internal Medicine; Visit Provider Physical Medicine & Rehabilitation | DX: M79.18 Myalgia, other site (principal) | CPT/HCPCS: 99212 ==

== ENCOUNTER 2025-01-23 12:32 | Outpatient (REF) | payer OTHER, SELFPAY ==
[2025-01-23 16:06] LABS: MANUAL DIFF FLAG NO
[2025-01-23 16:20] LABS: Hematocrit 38.9 % (37.0-47.0); Hemoglobin 12.0 g/dl (12.0-16.0); Imm Gran Abs Auto 0.00 X10*3/uL (0.00-0.03); Imm Gran Pct Auto 0.0 % (0.0-0.4); Lymphocytes Absolute Auto 2.6 X10*3/uL (1.2-4.9); Mean Corpuscular HGB Conc 30.8 g/dl (31.0-35.0); Mean Corpuscular Hemoglobin 21.9 pg (27.0-33.0); Mean Corpuscular Volume 70.9 fL (80.0-98.0); NRBC Abs Auto 0.000 X10*3/uL (0.0-0.012); NRBC Pct Auto 0.0 /100WBC (0.0-0.2); Platelet Count 178 X10*3/uL (160-400); Red Blood Count 5.49 X10*6/uL (4.20-5.50); White Blood Count 4.7 X10*3/uL (4.8-10.8)
[2025-01-23 16:39] LABS: Hemoglobin A1C 131.9470 umol/L; Total Hemoglobin (HGBA1C) 3184.2052 umol/L
[2025-01-23 16:49] LABS: Alanine Aminotransferase 36 U/L (0-31); Albumin Level 4.9 g/dL (3.5-5.0); Alkaline Phosphatase 53 U/L (39-117); Anion Gap 12 (12-20); Aspartate Amino Transferase 25 U/L (5-31); Blood Urea Nitrogen 8 mg/dL (9-16); Calcium 9.4 mg/dL (8.4-10.2); Carbon Dioxide 26 mmol/L (22-29); Chloride 107 mmol/L (96-108); Estimated Glomerular Filt Rate > 60; Magnesium 2.2 mg/dL (1.6-2.6); Potassium 3.7 mmol/L (3.3-5.1); Sodium 141 mmol/L (135-145); Total Protein 7.7 g/dL (6.5-8.0)
[2025-01-27 13:43] LABS: VITAMIN D (1,25 OH) D3 57 pg/mL; Vit D (1,25-Dihydroxy) Total 57 pg/mL (18-72); Vitamin D (1,25 OH) D2 <8 pg/mL
== END 2025-01-23 12:33 | disposition home or self-care (01) ==
LOC: HO.HMGCLDS 12:32
PROVIDERS: PCP Internal Medicine; Visit Provider Physician Assistant Medical
DX: R42 Dizziness and giddiness (principal); D50.9 Iron deficiency anemia, unspecified
CPT/HCPCS: 36415; 80053; 82652; 83036; 83735; 84443; 85025; 99212

== ENCOUNTER 2025-01-23 12:32 | Outpatient (AMB) | payer OTHER, SELFPAY ==
[2025-01-23 12:36] VITALS: BP 100/60; PULSE 80; TEMP 36.7; O2SAT 100; BMI 22.3
--- NOTE | 2025-01-23 12:36 | MHC.OFFWIV ---
Intake Vital Signs 01/23/25 12:36 Height 5 ft 6 in Weight 138 lb BMI 22.3 BP 100/60 Blood Pressure Location Lt brachial Position Sitting Pulse 80 Pulse Source Pulse Oximeter Temp 98.0 F Temp Source Oral Pulse Oximetry (%) 100 Oxygen Delivery Method Room Air Intake Visit Reasons: ep dizziness, skin burning, numbness in feet Intake Note: pt presents with dizziness, skin feels hot/cold, left forearm and right calf feels hot and exercises help those symptoms, overall fatigue- s/s 3 weeks Patient Tobacco Use Status: Never used Tobacco Allergies Quinidine-Quinine Analogues (Cincho Allergy (Verified 01/23/25 12:42) itch Influenza vaccine Adverse Reaction (Severe, Uncoded 01/04/25 16:01) severe flu like symptoms dairy Adverse Reaction (Mild, Uncoded 01/04/25 16:01) Hives Do you need a note to return to daycare/school/sports/work: No HPI HPI Comments History of Present Illness Details History of Present Illness - The patient is a 49-year-old female presenting with dizziness, burning sensation in the right knee, left arm, and feet, and tingling in the hands and feet. - Dizziness has been intermittent over the past three weeks, without associated chest pain or shortness of breath. - Burning sensation in the knees and feet is relieved by walking but worsens with activities like driving. - Tingling in the hands and feet, along with fatigue, has been ongoing for three weeks. - Iron deficiency anemia was identified with recent low iron levels, and iron supplementation has been initiated but only started a week ago. - Hyperlipidemia was diagnosed at the last checkup, and the patient is on cholesterol medication. - No recent dietary or medication changes, except for starting iron supplements. - She denies chest pain, SOB, abd pain, n/v/d, visual changes, melena, hematochezia, bruising or bleeding gums. Physical Exam General: Cooperative, healthy appearing, comfortable, no acute distress and well developed Orientation: Patient oriented x3 Limitations: No limitations Head: Normal to inspection Ears: Hearing grossly normal bilaterally. Nose: Normal external nose present Face and sinus: Normal facial exam Eyes: Appearance normal, both eyes and all related structures. PERRLA, EOMI. No nystagmus noted. Neck: Normal visual inspection and Yes full ROM. No carotid bruits. No thyromegaly noted. Respiratory: Normal respiratory effort and able to speak in complete sentences. Clear to auscultation bilaterally Cardiovascular: Regular rate and rhythm. Normal S1 and S2 GI: Normal to inspection. Soft to palpation and nontender. No guarding or rebound tenderness noted. Skin: No rashes or lesions noted Neuro: Patient oriented x3. CN II-XII intact. Extremities: Normal to inspection. No edema noted. Patient was informed and verbally consented to the use of an ambient scribe for clinic note documentation during this visit. 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 Cognitive needs: No Hearing needs: No Vision needs: Yes (glasses) Review of Systems Const All systems reviewed & are unremarkable except as noted in HPI and below Physical Exam Vital Signs: Last Vital Signs Temp 98.0 F 01/23/25 12:36 Pulse 80 01/23/25 12:36 BP 100/60 01/23/25 12:36 Pulse Ox 100 01/23/25 12:36 Oxygen Delivery Method Room Air 01/23/25 12:36 BMI result Body Mass Index 22.3 Assessment & Plan Assessment & Plan (1) Dizziness: Code(s): R42 - Dizziness and giddiness (2) Anemia: Code(s): D64.9 - Anemia, unspecified Qualifiers: Anemia type: iron deficiency Iron deficiency anemia type: unspecified iron deficiency Qualified Code(s): D50.9 - Iron deficiency anemia, unspecified Plan Most likely anemia vs electrolyte abnormality plan - will order labs - continue with iron supplements - iron rich diet - follow up with PCP Orders: Orders Complete Blood Count Auto Diff Today R42 - Dizziness and giddiness Hemoglobin A1c Today R42 - Dizziness and giddiness Magnesium Today R42 - Dizziness and giddiness Vitamin D 1,25 dihydroxy Today R42 - Dizziness and giddiness TSH reflex Free T4 Today R42 - Dizziness and giddiness Comprehensive Met. Panel Today R42 - Dizziness and giddiness Coding Level of Care Code Est Pt Level 4 (577[address]) Diagnoses Dizziness R42 Iron deficiency anemia, unspecified iron deficiency anemia type D50.9 Anemia type: iron deficiency Iron deficiency anemia type: unspecified iron deficiency
--- OUTSIDE RECORDS SUMMARY | 2025-01-23 14:52 | XMS_ITS | Encounter Summary ---
Author Organization [facility] Address [address] [place] [phone] Care Team Providers Care Package Reinspector Name Role Phone Rupinder Huerta MD Primary Care Provider + Encounter Details Date Type Department Care Team (Latest Contact Info) Description 08/14/2024 Lab Requisition [facility] - Main Lab [address] [place] [phone] Rupinder Huerta MD [address] [phone] Encounter for gynecological examination (general) [...] Technical cytopathology services provided by [facility], at [address] [place] [address] (CLIA # [id number]/Kelsey Jarvis MD, Manufacturing Lab Technician.) 08/15/2024 8:[address] [facility] Console Pap Interpretation Reported 08/15/2024 8:[address] [facility] Brushing/Spatula Vaginal structure / Unknown 08/11/2024 08/14/2024 6:21 AM EDT us Rupinder Huerta MD LAB CYTOLOGY ORDERABLES Final Result [facility] [address] [place] [address], documented in this encounter Visit Diagnoses Diagnosis Encounter for gynecological examination (general) (routine) without abnormal findings documented in this encounter Care Teams Package Reinspector Relationship Specialty Start Date End Date Rupinder Huerta MD [address] [phone] PCP - General Obstetrics and Gynecology 07/27/24 documented as of this encounter
--- OUTSIDE RECORDS SUMMARY | 2025-01-23 14:52 | XMS_ITS | Encounter Summary ---
Author Organization [facility] Address [address] [facility] [address] [place] [address] Phone Care Team Providers Care Maritime Engineer Name Role Phone Michelle Marques MD Primary Care Provider + Pcp, Unknown Primary Care Provider Michelle Tomas MD Primary Care Provider + Encounter Details Date Type Department Care Team (Late st Contact Info) Description 07/26/2017 Transcribe Orders [facility] [address] [place] [address] [address] [place] [address] System, Provider Not In, PhD Partners [address] [address] Gestational diabetes mellitus (GDM), antepartum, gestational diabetes [...] HEMOGLOBIN A1C 5.7 4.3 - 5.8 % [facility] Blood 07/26/2017 10:1 3 AM EDT 07/26/2017 10:17 AM EDT us Provider Not In System PhD LAB BLOOD ORDERABLES Final Result [address] [address] * Basic metabolic panel (07/26/2017 10:13 AM EDT) SODIUM 137 133 - 146 mmol/L [facility] CHLORIDE 101 96 - 108 mmol/L [facility] POTASSIUM 4.0 3.3 - 5.1 mmol/L [facility] CO2 27 21 - 35 mmol/L [facility] BUN 12 6 - 19 mg/dL [facility] CREATININE 0.50 0.5 - 1.5 mg/dL [facility] GLUCOSE 93 70 - 99 mg/dL [facility] CALCIUM 9.1 8.4 - 10.3 mg/dL [facility] EGFR 119 >59 mL/min/1.7 3m2 [facility] Comment:If patient is black, multiply result by 1.159. The eGFR calculation has changed from the MDRD equation to the CKD-EPI equation as of July 20, 2017. ANION GAP 13 10 - 20 mmol/L [facility] Blood 07/26/2017 10:1 3 AM EDT 07/26/2017 10:17 AM EDT us Provider Not In System PhD LAB BLOOD ORDERABLES Final Result [address] [address] documented in this encounter Visit Diagnoses Diagnosis Gestational diabetes mellitus (GDM), antepartum, gestational diabetes method of control unspecified- Primary documented in this encounter Care Teams Maritime Engineer Relationship Specialty Start Date End Date Michelle Marques MD [address] [place] [phone] PCP - General 03/02/17 06/05/20 Pcp, Unknown PCP - General 06/06/20 09/15/20 Michelle Marques MD [address] [place] [phone] [email or web address] PCP - General Family Medicine 09/16/20 documented as of this encounter Additional Source Comments The information contained in this document represents components of the legal health record. It is not the complete legal health record.[facility]
--- OUTSIDE RECORDS SUMMARY | 2025-01-23 14:52 | XMS_ITS | Encounter Summary ---
Author Organization [facility] Address [address] [facility] [address] [place] [address] Phone Care Team Providers Care Solar Sales Name Role Phone Michelle Marques MD Primary Care Provider + Encounter Details Date Type Department Care Team (Late st Contact Info) Description 07/21/2021 Ancillary Orders [facility] [address] [place] [address] Daron Clemente MD [address] [facility], [address] [place] [address] [email or web address] Pain of both breasts Social History Tobacco [...] in the upper-outer quadrant. Daron Clemente MD [facility] Final Result documented in this encounter Visit Diagnoses Diagnosis Pain of both breasts Pain of both breasts documented in this encounter Care Teams Solar Sales Relationship Specialty Start Date End Date Michelle Marques MD [address] [place] [phone] [email or web address] PCP - General Family Medicine 09/16/20 documented as of this encounter Additional Source Comments The information contained in this document represents components of the legal health record. It is not the complete legal health record.[facility]
--- OUTSIDE RECORDS SUMMARY | 2025-01-23 14:52 | XMS_ITS | Clinical Summary ---
Author Organization [address] [facility] Address [address] [place] [address] Phone Care Team Providers Care Aerodynamic Consultant Name Role Phone Rupinder Huerta MD Primary Care Provider + Encounters Date Type Department Care Team Description 11/28/2024 Lab Requisition [facility] - Main Lab 299 [facility] [employer] [address] Rpuinder Huerta MD Acute vaginitis from Last 3 [...] 06/11/2023 Social Influencers of Health Screening 06/11/2023 Depression Screening 05/17/2024 COVID-19 Vaccine ( - 2023-2 5 season) 2025 Influenza Vaccine (#1) 2025 Cervical Cancer Screening: [...] vaginalis Negative Negative 11/29/2024 10:23 AM EDT [facility] Gardnerella vaginalis Negative Negative 11/29/2024 10:23 AM EDT [facility] Dory Species Negative Negative 10:23 AM EDT [facility] Swab Vaginal structure / Unknown 11/28/2024 11/28/2024 6:29 PM EDT us Rupinder Huerta MD LAB MICROBIOLOGY - GENER AL ORDERABLES Final Result [facility] [address] [place] [address], * Pap smear (08/11/2024 12:00 AM EDT) Interpretation Negative for intraepithelial lesion or malignancy 08/15/2024 8:50 AM EDT [facility] General Categorization Negative 08/15/2024 8:50 AM EDT [facility] Specimen Adequacy Satisfactory for evaluation 08/15/2024 8:50 AM EDT [facility] Pap Methodology Liquid Based Pap Test 08/15/2024 8:50 AM EDT [facility] Disclaimer The Pap test is a screening test which carries an inherent false negative rate. These test results should be correlated with the patient's clinical findings and history. This Pap test was processed using an automated screening system. Technical cytopathology services provided by [facility], at [address] [place] [address] (CLIA # [id number]/Kelsey Jarvis MD, Dairy Science Teacher.) 08/15/2024 8:50 AM EDT [facility] Console Pap Interpretation Reported 08/15/2024 8:50 AM EDT [facility] Brushing/Spatula Vaginal structure / Unknown 08/11/2024 08/14/2024 6:21 AM EDT Rupinder Huerta MD LAB CYTOLOGY ORDERABLES Final Result [facility] [address] [place] [address], from Last 3 Months or Most Recently Relevant to Health Maintenance Insurance [facility] [employer] [facility] [place]ICA[place] Care Teams Aerodynamic Consultant Relationship Specialty Start Date End Date Rupinder Huerta MD [address] [phone] PCP - General Obstetrics and Gynecology 07/27/24
--- OUTSIDE RECORDS SUMMARY | 2025-01-23 14:52 | XMS_ITS | Encounter Summary ---
Author Organization [facility] Address [address] [place] [phone] Care Team Providers Care Poultry Inseminator Name Role Phone Rupinder Huerta MD Primary Care Provider + Encounter Details Date Type Department Care Team (Late st Contact Info) Description 11/28/2024 Lab Requisition [facility] - Main Lab 299 [place] [phone] Rupinder Huerta MD 299 [facility] [address] [place] [address] Acute vaginitis Social History Tobacco [...] vaginalis Negative Negative 11/29/2024 10:23 AM EDT [facility] Gardnerella vaginalis Negative Negative 11/29/2024 10:23 AM EDT [facility] Dory Species Negative Negative 10:23 AM T [facility] Swab Vaginal structure / Unknown 11/28/2024 11/28/2024 6:29 PM EDT Rupinder Huerta MD LAB MICROBIOLOGY - GENER AL ORDERABLES Final Result [facility] [address] [place] [address], documented in this encounter Visit Diagnoses Diagnosis Acute vaginitis Unspecified vaginitis and vulvovaginitis documented in this encounter Care Teams Poultry Inseminator Relationship Specialty Start Date End Date Rupinder Huerta MD [address] [phone] PCP - General Obstetrics and Gynecology 07/27/24 documented as of this encounter
--- OUTSIDE RECORDS SUMMARY | 2025-01-23 14:52 | XMS_ITS | Clinical Summary ---
Author Organization [facility] Address [address] [facility] [address] [place] [address] Phone Care Team Providers Care Neon Tube Pumper Name Role Phone Michelle Marques MD Primary [...] PAP SMEAR 06/13/2023 06/13/2020 MAMMOGRAM 07/24/2023 07/23/2021 Adult Td,Tdap Booster 08/17/2024 08/17/2014 , 07/12/2012 INFLUENZA VACCINE (#1) 2024 4, 05/24/2012 COVID-19 VACCINE ( - 2023-2 5 season) 2025 SMOKING STATUS SCREENING (On ce After 26 [...] SEE NARRATIVE - 2020 9:04 AM EST [address] [address] Amusement Centre Manager: Lucy Aly MD LANDSCAPE PAINTER Cytology Report FINAL DIAGNOSIS A. PAP SMEAR (SUREPATH) CE: SPECIMEN ADEQUACY: Satisfactory for evaluation; transformation zone present. INTERPRETATION: NEGATIVE FOR INTRAEPITHELIAL LESION OR MALIGNANCY. Electronically Signed Out By: KELLY Brooks(ASCP) Suhas M. Santiago, CT(ASCP) The Pap test is a screening [...] 52, 56, 58, 59, 66, 68) by [employer] [place] HR-HPV analysis. Clinical correlation is advised. This HPV test was performed at [facility], [address] [place] [address]. This test has been FDA approved for SurePath cervical cytology specimens. The accuracy and precision of this test for all other specimen sources has been verified in the Cytopathology Laboratory of the [facility] and has not been cleared or approved by the U.S. Food and Drug Administration. Clinical correlation is advised. CLINICAL HISTORY Date of Last Menstrual Period: 06-13-2020 Menstrual History: Bleeding, Abnormal: VAGINAL Other Clinical Conditions: Screening Pap SPECIMEN SOURCE A: PAP SMEAR (SUREPATH) CE Patient Name: TRAMAINE MCRAE : 1975 (Age: 44) Sex: F Institution: [facility] Location: [facility] Date of Collection: 06/13/2020 Date of Reported: 2020 09:04 Results to: Daron Clemente MD, BS us Daron Clemente MD CYTOLOGY ORDERABLES Final Res ult SEE NARRATIVE from Last 3 Months or Most Recently Relevant to Health Maintenance [place] [address] [address] [place] [address] SAFETY NET FULL [facility] NON NSP PCP [facility] SAFETY NET FULL WE[employer] NON NSPG PCP [facility]VER [facility]ITY [facility] SAFETY NET FULL [facility] WELLSENSE NON NSPG PCP SILVER CLARITY CONNECTORCARE [facility] NET FULL [facility] SAFETY NET FULL [facility]ALTH SAFETY NET FULL [facility] WELLSENSE NON NSPG PCP SILVER CLARITY [facility]ARE [facility] SAFETY NET FULL [facility] WELLSENSE NON NSPG PCP SILVER CLARITY CONNECTORCARE [facility] FULL [facility] NON NSPG PCP SILVER CLARITY CONNECTORCARE HEALTH SAFETY [place] [address] [place] [address] [facility] NON NSPG PCP SILVER CLARITY CONNECTORCARE Advance Directives For more information, please contact: [phone] (9AM - 5PM [place], Wednesday-Wednesday) Documents on File Type Date Recorded 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 Healthcare Proxy 10/01/2020 4:53 PM * Full Code (Latest Code Status on File) Date Activated Date Inactivated Comments 08/08/2021 9:48 AM Question Answer Comments Code Status Confirmed With: Patient * Full Code Date Activated Date Inactivated Comments 09/27/2020 12:11 PM 08/08/2021 9:48 AM Question Answer Comments Code Status Confirmed With: Patient Care Teams Neon Tube Pumper Relationship Specialty Start Date End Date Michelle Marques MD [address] [place] [phone] [email or web address] PCP - General Family Medicine 09/16/20 Additional Source Comments The information contained in this document represents components of the legal health record. It is not the complete legal health record.[facility]
--- OUTSIDE RECORDS SUMMARY | 2025-01-23 14:52 | XMS_ITS | Encounter Summary ---
Author Organization [facility] Address [address] [place] [address] Phone Care Team Providers Care Care Technician Name Role Phone Michelle Marques MD Primary Care Provider + Encounter Details Date Type Department Care Team (Late st Contact Info) Description 07/21/2021 Procedure Pass [facility], [address] [address] Social History Tobacco Use Types Packs/Day Years [...] on filedocumented in this encounter Care Teams Care Technician Relationship Specialty Start Date End Date Michelle Marques MD [address] [place] [phone] PCP - General Family Medicine 09/16/20 documented as of this encounter Additional Source Comments The information contained in this document represents components of the legal health record. It is not the complete legal health record.[facility]
--- OUTSIDE RECORDS SUMMARY | 2025-01-23 14:52 | XMS_ITS | Encounter Summary ---
Author Organization [facility] Address [address] [facility] [address] [place] [address] Phone Care Team Providers Care Emissions Testing Technician Name Role Phone Michelle Maruqes MD Primary Care Provider + Encounter Details Date Type Department Care Team (Late st Contact Info) Description 06/26/2021 Procedure Pass [facility], [facility] [address] [place] [address] Social History Tobacco Use Types Packs/Day Years [...] on filedocumented in this encounter Care Teams Emissions Testing Technician Relationship Specialty Start Date End Date Michelle Marques MD [address] [place] [phone] PCP - General Family Medicine 09/16/20 documented as of this encounter Additional Source Comments The information contained in this document represents components of the legal health record. It is not the complete legal health record.[facility]
--- OUTSIDE RECORDS SUMMARY | 2025-01-23 14:52 | XMS_ITS | Encounter Summary ---
Author Organization [facility] Address [address] [facility] [address] [place] [address] Phone Care Team Providers Care Family Service Worker Name Role Phone Michelle Marques MD Primary Care Provider + Encounter Details Date Type Department Care Team (Late st Contact Info) Description 09/27/2020 Procedure Pass [place] Admitting Dept - Virtual Department [address] [place] [address] Social History Tobacco Use Types Packs/Day Years [...] on filedocumented in this encounter Care Teams Family Service Worker Relationship Specialty Start Date End Date Michelle Marques MD [address] [place] [phone] PCP - General Family Medicine 09/16/20 documented as of this encounter Additional Source Comments The information contained in this document represents components of the legal health record. It is not the complete legal health record.[facility]
--- OUTSIDE RECORDS SUMMARY | 2025-01-23 14:52 | XMS_ITS | Encounter Summary ---
Author Organization [facility] Address [address] [facility] [address] [place] [address] Phone Care Team Providers Care Local Company Flatbed Truck Driver Name Role Phone Michelle Marques MD Primary Care Provider + Encounter Details Date Type Department Care Team (Late st Contact Info) Description 08/08/2021 Procedure Pass [place] Admitting Dept - Virtual Department [address] [place] [address] Social History Tobacco Use Types Packs/Day Years [...] on filedocumented in this encounter Care Teams Local Company Flatbed Truck Driver Relationship Specialty Start Date End Date Michelle Marques MD [address] [place] [phone] PCP - General Family Medicine 09/16/20 documented as of this encounter Additional Source Comments The information contained in this document represents components of the legal health record. It is not the complete legal health record.[facility]
--- OUTSIDE RECORDS SUMMARY | 2025-01-23 14:52 | XMS_ITS | Encounter Summary ---
Author Organization [facility] Address [address] [facility] [address] [place] [address] Phone Care Team Providers Care Technician Submarine Cable Equipment Name Role Phone Michelle Marques MD Primary Care Provider + Pcp, Unknown Primary Care Provider Michelle Tomas MD Primary Care Provider + Encounter Details Date Type Department Care Team (Late st Contact Info) Description 08/27/2017 Ancillary Orders [facility], X-Ray - [address] [place] [address] System, Provider Not In, [place] [address] Chest pain, unspecified type Social History Tobacco [...] EDT No acute chest disease. POS - [id number] Narrative 08/27/2017 11:24 AM EDT HISTORY: As [...] IMPRESSION: No acute chest disease. POS - [id number] us Provider Not In System PhD IMG XR CHEST Final Result documented in this encounter Visit Diagnoses Diagnosis Chest pain, unspecified type Chest pain, unspecified type documented in this encounter Care Teams Technician [employer] Equipment Relationship Specialty Start Date End Date Michelle Marques MD [address] [place] [phone] PCP - General 03/02/17 06/05/20 Pcp, Unknown PCP - General 06/06/20 09/15/20 Michelle Marques MD [address] [place] [phone] PCP - General Family Medicine 09/16/20 documented as of this encounter Additional Source Comments The information contained in this document represents components of the legal health record. It is not the complete legal health record.[facility]
--- OUTSIDE RECORDS SUMMARY | 2025-01-23 14:52 | XMS_ITS | Encounter Summary ---
Author Organization [facility] Address [address] [facility] [address] [place] [address] Phone Care Team Providers Care Court Recorder Name Role Phone Michelle Marques MD Primary Care Provider + Encounter Details Date Type Department Care Team (Late st Contact Info) Description 12/08/2021 Transcribe Orders Virtual Department [address] [place] [address] Esteban Xiong MD [address] [address] Encounter for screening mammogram for malignant neoplasm [...] Primary documented in this encounter Care Teams Court Recorder Relationship Specialty Start Date End Date Michelle Marques MD [address] [place] [phone] PCP - General Family Medicine 09/16/20 documented as of this encounter Additional Source Comments The information contained in this document represents components of the legal health record. It is not the complete legal health record.[facility]
--- OUTSIDE RECORDS SUMMARY | 2025-01-23 14:52 | XMS_ITS | Encounter Summary ---
Author Organization [facility] Address [id number] [place] [phone] Care Team Providers Care Cutter Head Sharpener Name Role Phone Rupinder Huerta MD Primary Care Provider + Encounter Details Date Type Department Care Team (Latest Contact Info) Description 07/27/2024 Lab Requisition [facility] - Main Lab [address] [facility] [place] [phone] Rupinder Huerta MD 299 [facility] [address] [place] [address] Encounter for screening for infections [...] reflex microscopic (07/27/2024 12:00 AM EDT) Specific [place] Urine 1.006 1.003 - 1.030 LAB URINALYSIS [...] - AUTOMATED METHOD 07/27/2024 7:[address] [facility] Bilirubin, Urine Negative Negative LAB URINALYSIS - AUTOMATED METHOD 07/27/2024 7:[address] [facility] Blood, Urine Negative Negative LAB URINALYSIS - AUTOMATED METHOD 07/27/2024 7:[address] [facility] Urine Urine specimen obtained by clean catch procedure / Unknown 07/27/2024 07/27/2024 6:04 PM EDT us Rupinder Huerta MD LAB URINE ORDERABLES Fin al Result Performing Organization Address City/[facility]/ZIP Co de Phone Number [facility] [address] [place] [address], [place] [phone] * Culture urine (07/27/2024 12:00 AM EDT) Culture, Urine No growth 07/28/2024 2:[address] [facility] Urine Urine specimen obtained by clean catch procedure / Unknown 07/27/2024 07/27/2024 6:04 PM EDT us Rupinder Huerta MD LAB MICROBIOLOGY - GENER AL ORDERABLES Final Result [facility] [address] [place] [address], [place] [phone] * Vaginitis pathogens molecular study (07/27/2024 12:00 [...] Organization Address City/[facility]/ZIP Co de Phone Number [facility] [address] [place] [address], [place] [phone] * Chlamydia trachomatis and Neisseria gonorrhoeae molecular study (07/27/2024 12:00 AM EDT) Pathologist [facility] Neisseria gonorrhoeae PCR Negative Negative LAB MOLECULAR [...] Organization Address City/[facility]/ZIP Co de Phone Number [facility] [address] [place] [address], [place] [phone] documented in this encounter Visit Diagnoses Diagnosis Encounter for screening for infections with a predominantly sexual mode of transmission Renal tubulo-interstitial disorders in diseases classified elsewhere Urinary tract infection, site not specified documented in this encounter Care Teams Cutter Head Sharpener Relationship Specialty Start Date End Date Rupinder Huerta MD [address] [phone] PCP - General Obstetrics and Gynecology 07/27/24 documented as of this encounter
== END 2025-01-23 13:12 | disposition home or self-care (01) ==
PROVIDERS: PCP Internal Medicine; Visit Provider Physician Assistant Medical
DX: R42 Dizziness and giddiness (principal); D50.9 Iron deficiency anemia, unspecified